=== PATIENT | female | born 1965 | race Caucasian/White ===

== ENCOUNTER 2021-10-01 11:09 | Emergency (ER) | payer MEDICARE, MEDICAID ==
[~2021-10-01] VITALS: Ht 167.6 cm; Wt 90.7 kg
[~2021-10-01 11:09] MED LIST: DIAZ2TAB PO; FLUO20CA19 PO; MORP30TA PO; QUE100T PO; ZOLP10TA PO
[2021-10-01 12:47] LABS: Basophils # (auto) 0 10 ^3/uL (0-0.2); Basophils % (auto) 0.2 % (0.0-2.0); Eosinophils # (auto) 0.1 10 ^3/uL (0-0.8); Eosinophils % (auto) 0.8 % (0.0-7.0); Hematocrit 45.5 % (36.0-46.0); Hemoglobin 14.9 g/dL (12.2-16.2); Lymphocytes # (auto) 1.5 10 ^3/uL (0.4-5.4); Lymphocytes % (auto) 13.5 % (10.0-50.0); Mean Corpuscular Hemoglobin 30.2 pg (28.0-32.0); Mean Corpuscular Hgb Conc. 32.8 g/dL (32.0-36.0); Mean Corpuscular Volume 92.1 fL (80.0-100.0); Monocytes # (auto) 0.5 10 ^3/uL (0-1.3); Monocytes % (auto) 4.6 % (0.0-12.0); Neutrophils # (auto) 8.8 10 ^3/uL (1.6-8.6); Neutrophils % (auto) 80.9 % (37.0-80.0); Nucleated Red Blood Cells % 0.2 %; Red Blood Cells 4.94 10^6/uL (4.0-5.20); Red Cell Distribution Width 13.9 % (11.8-14.3); White Blood Cell 10.8 10^3/uL (4.4-10.8)
[2021-10-01 13:16] LABS: Potassium 4.5 mmol/L (3.5-5.1)
[2021-10-01 13:26] LABS: Albumin 3.5 g/dL (3.4-5.0); BUN/Creatinine Ratio 12.1; Bilirubin, Total 0.5 mg/dL (0.2-1.0); Calcium 8.8 mg/dL (8.5-10.1); Magnesium 2.5 mg/dL (1.6-2.6); Total Protein 7.3 g/dL (6.4-8.2)
[2021-10-01 19:06] VITALS: BP 140/90
== END 2021-10-01 21:51 | disposition left against medical advice (07) ==
LOC: ER 11:09 → EDBD 11:09 → ER 21:51
DX: R41.82 Altered mental status, unspecified (principal); R55 Syncope and collapse; Z86.73 Personal history of transient ischemic attack (TIA), and cerebral infarction without residual deficits; Z88.1 Allergy status to other antibiotic agents; Z88.0 Allergy status to penicillin; Z53.29 Procedure and treatment not carried out because of patient's decision for other reasons
CPT/HCPCS: 36415; 70450; 71045; 72125; 80053; 83735; 84484; 85025; 93005

== ENCOUNTER 2022-02-25 10:59 | Inpatient (IN) | payer MEDICARE, MEDICAID ==
[2022-02-25] VITALS (20 sets, daily range): BP systolic 77–119; BP diastolic 54–100
[~2022-02-25] VITALS: Ht 167.6 cm; Wt 103.8 kg
[2022-02-25 11:44] LABS: Basophils # (auto) 0 10 ^3/uL (0-0.2); Basophils % (auto) 0.1 % (0.0-2.0); Eosinophils # (auto) 0 10 ^3/uL (0-0.8); Eosinophils % (auto) 0.1 % (0.0-7.0); Hematocrit 50.6 % (36.0-46.0); Hemoglobin 16.5 g/dL (12.2-16.2); Lymphocytes # (auto) 0.7 10 ^3/uL (0.4-5.4); Mean Corpuscular Hemoglobin 29.8 pg (28.0-32.0); Mean Corpuscular Hgb Conc. 32.7 g/dL (32.0-36.0); Mean Corpuscular Volume 91.2 fL (80.0-100.0); Monocytes # (auto) 2.1 10 ^3/uL (0-1.3); Monocytes % (auto) 8.5 % (0.0-12.0); Neutrophils # (auto) 21.6 10 ^3/uL (1.6-8.6); Neutrophils % (auto) 88.3 % (37.0-80.0); Nucleated Red Blood Cells % 0.1 %; Red Blood Cells 5.55 10^6/uL (4.0-5.20); Red Cell Distribution Width 14.4 % (11.8-14.3); White Blood Cell 24.4 10^3/uL (4.4-10.8)
[2022-02-25 12:07] LABS: Lactic Acid w/Reflex 5.7 mmol/L (0.4-2.0)
[2022-02-25] MEDS ORDERED: MORPHINE SULFATE 4 MG/ML SYR/VIAL IV ONE (12:45)
[2022-02-25] MEDS ORDERED: LACTATED RINGER'S 1,000 ML IV ONE (12:45)
[2022-02-25] MEDS ORDERED: metroNIDAZOLE 500MG/100ML 100 ML IV ONE (13:30)
[2022-02-25] MEDS ORDERED: CEFEPIME 1 GM in SODIUM CHL 0.9% 50 ML IV ONE (13:30)
[2022-02-25] MEDS: LACTATED RINGER'S 1,000 ML IV ONE ×2 (14:07→14:58)
[2022-02-25 14:27] LABS: Albumin 2.7 g/dL (3.4-5.0); Bilirubin, Total 0.7 mg/dL (0.2-1.0); Calcium 9.2 mg/dL (8.5-10.1); Magnesium 2.3 mg/dL (1.6-2.6); Potassium 4.3 mmol/L (3.5-5.1); Total Protein 6.8 g/dL (6.4-8.2)
[2022-02-25] MEDS ORDERED: SUCCINYLCHOLINE CHLORIDE 20 MG/ML 10ML VIAL IV ONE ×2 (16:32→17:49)
[2022-02-25 17:03] LABS: Urine Amorphous Crystal FEW /hpf (None Seen); Urine Bacteria NONE SEEN /hpf (None Seen); Urine Blood 2+ /uL (Negative); Urine Mucus FEW (None Seen); Urine Specific Gravity 1.027 (1.001-1.035); Urine WBC 19 /hpf (0 - 5); Urine WBC Clumps PRESENT /hpf (None Seen)
[2022-02-25] MEDS ORDERED: SODIUM BICARBONATE 8.4 % INJ 50ML VIAL IV ONE (17:30)
[2022-02-25] MEDS ORDERED: ROCURONIUM 10MG/ML 10ML VIAL IV ONE (17:39)
[2022-02-25] MEDS ORDERED: MIDAZOLAM HCL 2MG/2ML 2ml VIAL (1mg/ml) ONE (17:39)
[2022-02-25] MEDS ORDERED: fentaNYL CITRATE 100 MCG/2 ML VL ONE (17:39)
[2022-02-25] MEDS ORDERED: MORPHINE SULFATE INJECTION 2 MG/ML SYRG IV PRN (18:15)
[2022-02-25] MEDS ORDERED: NOREPINEPHRINE 8 MG/250ML KIT 250 ML IV SCH (18:15)
[2022-02-25] MEDS ORDERED: NITROGLYCERIN 0.4 MG SL TAB SL PRN (18:15)
[2022-02-25 18:39] LABS: Partial Thromboplastin Time < 20.0 sec (23.6-33.0)
[2022-02-25] MEDS ORDERED: POVIDONE IODINE 10 % TOPICAL OINT 30GM TOP ONE (18:59)
[2022-02-25] MEDS ORDERED: D5W/SOD CHL 0.45%/KCL 20MEQ 1,000 ML IV SCH (19:30)
[2022-02-25] MEDS ORDERED: fentaNYL CITRATE 100 MCG/2 ML VL IV ONE (19:30)
[2022-02-25] MEDS: MIDAZOLAM DRIP 50 mg/50mL 50 ML IV SCH (19:45)
[2022-02-25] MEDS: D5W/LACTATED RINGERS 1,000 ML IV SCH (20:00)
[2022-02-25] MEDS: NOREPINEPHRINE 8 MG/250ML KIT 250 ML IV SCH (21:00)
[2022-02-25] MEDS: CEFEPIME 2 GM in SODIUM CHL 0.9% 50 ML IV SCH (22:29)
[2022-02-25 23:44] LABS: Basophils # (auto) 0 10 ^3/uL (0-0.2); Basophils % (auto) 0.2 % (0.0-2.0); Eosinophils # (auto) 0 10 ^3/uL (0-0.8); Eosinophils % (auto) 0.1 % (0.0-7.0); Hematocrit 42.5 % (36.0-46.0); Hemoglobin 14.5 g/dL (12.2-16.2); Lymphocytes % (auto) 7.3 % (10.0-50.0); Mean Corpuscular Hemoglobin 30.5 pg (28.0-32.0); Mean Corpuscular Hgb Conc. 34.2 g/dL (32.0-36.0); Monocytes # (auto) 0.9 10 ^3/uL (0-1.3); Monocytes % (auto) 6.4 % (0.0-12.0); Neutrophils # (auto) 11.6 10 ^3/uL (1.6-8.6); Red Blood Cells 4.78 10^6/uL (4.0-5.20); Red Cell Distribution Width 14.2 % (11.8-14.3); White Blood Cell 13.4 10^3/uL (4.4-10.8)
[2022-02-25] MEDS: metroNIDAZOLE 500MG/100ML 100 ML IV SCH (23:47)
[2022-02-26] VITALS (91 sets, daily range): BP systolic 75–131; BP diastolic 47–75
[2022-02-26] LABS: BUN/Creatinine Ratio 17.5; Calcium 8.2 mg/dL (8.5-10.1); Potassium 4.9 mmol/L (3.5-5.1)
[2022-02-26] MEDS: NOREPINEPHRINE 8 MG/250ML KIT 250 ML IV SCH ×3 (00:41→15:40)
[2022-02-26 02:39] LABS: Lactic Acid w/Reflex 4.2 mmol/L (0.4-2.0)
[2022-02-26] MEDS ORDERED: ACETAMINOPHEN 650 MG RECT SUPP PR ONE (03:15)
[2022-02-26] MEDS: D5W/LACTATED RINGERS 1,000 ML IV SCH (05:19)
[2022-02-26] MEDS: MIDAZOLAM DRIP 50 mg/50mL 50 ML IV SCH ×2 (05:56→21:26)
[2022-02-26] MEDS: metroNIDAZOLE 500MG/100ML 100 ML IV SCH ×3 (05:58→21:51)
[2022-02-26] MEDS ORDERED: MIDAZOLAM HCL 2MG/2ML 2ml VIAL (1mg/ml) ONE (07:37)
[2022-02-26] MEDS ORDERED: HYDROmorphone HCL 2 MG/ML VL ONE (07:37)
[2022-02-26] MEDS ORDERED: fentaNYL CITRATE 100 MCG/2 ML VL ONE (07:37)
[2022-02-26] MEDS ORDERED: ROCURONIUM 10MG/ML 10ML VIAL IV ONE ×2 (07:37→09:01)
[2022-02-26] MEDS ORDERED: EPINEPHrine HCL 1 MG/1 ML AMP ONE (08:03)
[2022-02-26] MEDS ORDERED: BUPIVACAINE 0.25% INJ 50ML VIAL ONE (08:04)
[2022-02-26] MEDS ORDERED: CALCIUM CHLOR(10%) 100MG/ML 10ML SYRINGE IV ONE (08:24)
[2022-02-26] MEDS ORDERED: SODIUM CHLORIDE LOCK 10 ML ONE (08:55)
[2022-02-26] MEDS ORDERED: PHENYLEPHRINE HCL 10 MG/ML VL ONE (08:55)
[2022-02-26] MEDS ORDERED: SODIUM BICARBONATE INFANT SYR 10 ML SYRG IV ONE (08:59)
[2022-02-26] MEDS: CEFEPIME 2 GM in SODIUM CHL 0.9% 50 ML IV SCH (10:00)
[2022-02-26] MEDS ORDERED: PHENYLEPHRINE IV 250 ML IV ONE (10:04)
[2022-02-26] MEDS: PHENYLEPHRINE IV 250 ML IV SCH ×2 (10:15→18:08)
[2022-02-26] MEDS ORDERED: ALBUMIN 5% 250 ML IV ONE (10:45)
[2022-02-26] MEDS: VASOPRESSIN 50 UNITS in D5W 5% 247.5 ML IV SCH (10:45)
[2022-02-26] MEDS ORDERED: SODIUM BICARBONATE 8.4 % INJ 50ML VIAL IV ONE ×2 (10:46→11:00)
[2022-02-26] MEDS ORDERED: TPN PER PHARMACY 0 ML IV SCH (11:00)
[2022-02-26] MEDS: fentaNYL Drip 2500mCg/250mlNS 250 ML IV SCH ×2 (11:00→20:41)
[2022-02-26] MEDS ORDERED: PANTOPRAZOLE 40 MG/10 ML VIAL INJ IV ONE (11:15)
[2022-02-26 11:24] LABS: Albumin 1.4 g/dL (3.4-5.0); BUN/Creatinine Ratio 22.5; Calcium 7.2 mg/dL (8.5-10.1); Hematocrit 38.5 % (36.0-46.0); Hemoglobin 12.9 g/dL (12.2-16.2); Mean Corpuscular Hgb Conc. 33.5 g/dL (32.0-36.0); Mean Corpuscular Volume 89.7 fL (80.0-100.0); Red Cell Distribution Width 14.3 % (11.8-14.3); White Blood Cell 16.6 10^3/uL (4.4-10.8)
[2022-02-26 11:25] LABS: Basophils % (manual) 0 (0.0-2.0); Blast Cells 0; Eosinophils % (manual) 0 (0-7); Myelocytes % 0; Promyelocytes % 0; Reactive Lymphocytes 0
[2022-02-26 11:26] LABS: Bilirubin, Total 0.4 mg/dL (0.2-1.0); Total Protein 4.2 g/dL (6.4-8.2)
[2022-02-26] MEDS ORDERED: DEXTROSE (50%) 50ML SYRG IV SCH (11:30)
[2022-02-26 11:40] LABS: Magnesium 1.6 mg/dL (1.6-2.6); Phosphorus 4.4 mg/dL (2.5-4.90)
[2022-02-26] MEDS: ACCU-CHEK COMFORT CURVE STRIP VI SCH ×3 (11:51→23:32)
[2022-02-26] MEDS: InsuLIN REG 1unit/0.01ml Soln (100units/ml) SC SCH ×3 (11:56→23:35)
[2022-02-26 12:58] LABS: Band Neutrophils % (manual) 75; Lymphocytes % (manual) 7 (10.0-50.0); Metamyelocytes % 3; Monocytes % (manual) 7 (0-12)
[2022-02-26] MEDS ORDERED: LACTATED RINGER'S 1,000 ML IV SCH (15:30)
[2022-02-26] MEDS ORDERED: VANCOMYCIN PER PHARMACY 0 MG IV SCH (16:30)
[2022-02-26] MEDS: LACTATED RINGER'S 1,000 ML IV SCH ×2 (16:45→20:15)
[2022-02-26] MEDS: VANCOMYCIN 1GM/250ML 250 ML IV SCH (17:12)
[2022-02-26] MEDS ORDERED: TPN PER PHARMACY IV NR ×4 (20:00)
[2022-02-26] MEDS ORDERED: LINEZOLID 600MG/300ML 300 ML IV SCH (22:00)
[2022-02-27] VITALS (99 sets, daily range): BP systolic 84–125; BP diastolic 6–107
[2022-02-27] MEDS: PHENYLEPHRINE IV 250 ML IV SCH ×2 (01:51→09:59)
[2022-02-27 03:37] LABS: Basophils # (auto) 0 10 ^3/uL (0-0.2); Basophils % (auto) 0.4 % (0.0-2.0); Eosinophils # (auto) 0 10 ^3/uL (0-0.8); Eosinophils % (auto) 0.1 % (0.0-7.0); Hemoglobin 10.6 g/dL (12.2-16.2); Lymphocytes # (auto) 0.3 10 ^3/uL (0.4-5.4); Lymphocytes % (auto) 3.8 % (10.0-50.0); Mean Corpuscular Hemoglobin 30.4 pg (28.0-32.0); Mean Corpuscular Hgb Conc. 34.1 g/dL (32.0-36.0); Monocytes # (auto) 0.4 10 ^3/uL (0-1.3); Neutrophils # (auto) 7.8 10 ^3/uL (1.6-8.6); Neutrophils % (auto) 90.7 % (37.0-80.0); Red Blood Cells 3.49 10^6/uL (4.0-5.20); Red Cell Distribution Width 14.5 % (11.8-14.3); White Blood Cell 8.6 10^3/uL (4.4-10.8)
[2022-02-27 03:45] LABS: Albumin 1.5 g/dL (3.4-5.0); BUN/Creatinine Ratio 23.2; Calcium 7.9 mg/dL (8.5-10.1); Magnesium 2.1 mg/dL (1.6-2.6); Potassium 4.3 mmol/L (3.5-5.1)
[2022-02-27 03:48] LABS: Bilirubin, Total 0.2 mg/dL (0.2-1.0); Phosphorus 1.8 mg/dL (2.5-4.90); Total Protein 4.6 g/dL (6.4-8.2)
[2022-02-27] MEDS: LACTATED RINGER'S 1,000 ML IV SCH (03:57)
[2022-02-27] MEDS: MIDAZOLAM DRIP 50 mg/50mL 50 ML IV SCH ×4 (03:58→21:56)
[2022-02-27] MEDS: VANCOMYCIN 1GM/250ML 250 ML IV SCH ×2 (05:09→17:16)
[2022-02-27] MEDS: ACCU-CHEK COMFORT CURVE STRIP VI SCH ×3 (05:55→17:01)
[2022-02-27] MEDS: InsuLIN REG 1unit/0.01ml Soln (100units/ml) SC SCH ×3 (05:56→17:01)
[2022-02-27] MEDS: metroNIDAZOLE 500MG/100ML 100 ML IV SCH ×3 (06:08→21:56)
[2022-02-27] MEDS ORDERED: SOD CHL 0.45% 1,000 ML IV SCH (09:00)
[2022-02-27] MEDS: PANTOPRAZOLE 40 MG/10 ML VIAL INJ IV SCH (09:04)
[2022-02-27] MEDS ORDERED: CEFEPIME 2 GM in SODIUM CHL 0.9% 50 ML IV SCH (10:00)
[2022-02-27] MEDS: VASOPRESSIN 50 UNITS in D5W 5% 247.5 ML IV SCH (10:45)
[2022-02-27] MEDS: SOD CHL 0.45% 1,000 ML IV SCH (11:50)
[2022-02-27] MEDS: PHENYLEPHRINE INJ 80 MG in SODIUM CHL 0.9% 242 ML IV SCH ×2 (12:35→19:17)
[2022-02-27] MEDS: NOREPINEPHRINE 8 MG/250ML KIT 250 ML IV SCH (12:35)
[2022-02-27] MEDS ORDERED: SODIUM PHOSPHATES 24 MEQ in SODIUM CHL 0.9% 100 ML IV ONE (13:00)
[2022-02-27 15:03] LABS: Urine Bacteria NONE SEEN /hpf (None Seen); Urine Blood 2+ /uL (Negative); Urine Specific Gravity 1.016 (1.001-1.035); Urine WBC 1 /hpf (0 - 5)
[2022-02-27 16:06] LABS: Protein, Urine 135.5 mg/dL (0.0-11.9)
[2022-02-27] MEDS: fentaNYL Drip 2500mCg/250mlNS 250 ML IV SCH (19:17)
[2022-02-27] MEDS ORDERED: TPN PER PHARMACY IV NR ×8 (20:00)
[2022-02-28] VITALS (104 sets, daily range): BP systolic 90–117; BP diastolic 41–68
[2022-02-28] MEDS: SOD CHL 0.45% 1,000 ML IV SCH ×3 (00:20→19:10)
[2022-02-28] MEDS ORDERED: PHENYLEPHRINE IV 250 ML IV ONE (01:58)
[2022-02-28] MEDS ORDERED: PHENYLEPHRINE HCL 10 MG/ML VL ONE (01:59)
[2022-02-28] MEDS: PHENYLEPHRINE INJ 80 MG in SODIUM CHL 0.9% 242 ML IV SCH ×3 (02:46→23:50)
[2022-02-28] MEDS: MIDAZOLAM DRIP 50 mg/50mL 50 ML IV SCH ×6 (04:01→22:12)
[2022-02-28 04:13] LABS: Basophils # (auto) 0 10 ^3/uL (0-0.2); Basophils % (auto) 0.1 % (0.0-2.0); Eosinophils # (auto) 0 10 ^3/uL (0-0.8); Hematocrit 28.2 % (36.0-46.0); Hemoglobin 9.3 g/dL (12.2-16.2); Lymphocytes # (auto) 0.7 10 ^3/uL (0.4-5.4); Lymphocytes % (auto) 4.4 % (10.0-50.0); Mean Corpuscular Hemoglobin 29.8 pg (28.0-32.0); Mean Corpuscular Hgb Conc. 33.1 g/dL (32.0-36.0); Mean Corpuscular Volume 90.1 fL (80.0-100.0); Monocytes # (auto) 0.8 10 ^3/uL (0-1.3); Neutrophils # (auto) 14.8 10 ^3/uL (1.6-8.6); Neutrophils % (auto) 90.5 % (37.0-80.0); Nucleated Red Blood Cells % 0.1 %; Red Blood Cells 3.13 10^6/uL (4.0-5.20); Red Cell Distribution Width 14.8 % (11.8-14.3); White Blood Cell 16.3 10^3/uL (4.4-10.8)
[2022-02-28 04:28] LABS: Albumin 1.5 g/dL (3.4-5.0); BUN/Creatinine Ratio 26.1; Calcium 7.8 mg/dL (8.5-10.1); Magnesium 2.5 mg/dL (1.6-2.6)
[2022-02-28 04:30] LABS: Bilirubin, Total 0.2 mg/dL (0.2-1.0); Phosphorus 1.5 mg/dL (2.5-4.90)
[2022-02-28] MEDS: VANCOMYCIN 1GM/250ML 250 ML IV SCH ×2 (05:05→14:19)
[2022-02-28] MEDS: ACCU-CHEK COMFORT CURVE STRIP VI SCH ×5 (05:42→23:52)
[2022-02-28] MEDS: InsuLIN REG 1unit/0.01ml Soln (100units/ml) SC SCH ×5 (05:44→23:52)
[2022-02-28] MEDS: metroNIDAZOLE 500MG/100ML 100 ML IV SCH ×3 (06:00→22:12)
[2022-02-28] MEDS: PANTOPRAZOLE 40 MG/10 ML VIAL INJ IV SCH (09:04)
[2022-02-28] MEDS ORDERED: CEFEPIME 2 GM in SODIUM CHL 0.9% 50 ML IV SCH (10:00)
[2022-02-28] MEDS ORDERED: SODIUM PHOSP 40 MEQ in D5W 5% 250 ML IV ONE (10:15)
[2022-02-28] MEDS: VASOPRESSIN 50 UNITS in D5W 5% 247.5 ML IV SCH (10:45)
[2022-02-28] MEDS: fentaNYL Drip 2500mCg/250mlNS 250 ML IV SCH (12:13)
[2022-02-28] MEDS: IPRATROPIUM BROM 0.5 MG/2.5ML INH SOL NEB SCH ×3 (14:03→22:10)
[2022-02-28] MEDS: ALBUTEROL SULF 2.5 MG/0.5ML(0.5%) NEB SOLN NEB SCH ×3 (14:03→22:10)
[2022-02-28] MEDS: CEFEPIME 2 GM in SODIUM CHL 0.9% 50 ML IV SCH (16:07)
[2022-02-28] MEDS ORDERED: TPN PER PHARMACY IV NR ×8 (20:00)
[2022-02-28] MEDS: BUDESONIDE (INHALATION) 0.5 MG/2 ML NEB NEB SCH (22:10)
[2022-03-01] VITALS (107 sets, daily range): BP systolic 85–136; BP diastolic 47–98
[2022-03-01] MEDS: VANCOMYCIN 1GM/250ML 250 ML IV SCH ×3 (01:32→21:00)
[2022-03-01] MEDS: CEFEPIME 2 GM in SODIUM CHL 0.9% 50 ML IV SCH ×3 (01:33→17:40)
[2022-03-01] MEDS: MIDAZOLAM DRIP 50 mg/50mL 50 ML IV SCH ×5 (01:33→19:46)
[2022-03-01] MEDS: ALBUTEROL SULF 2.5 MG/0.5ML(0.5%) NEB SOLN NEB SCH ×6 (02:17→21:51)
[2022-03-01] MEDS: IPRATROPIUM BROM 0.5 MG/2.5ML INH SOL NEB SCH ×6 (02:17→21:52)
[2022-03-01 03:48] LABS: Mean Corpuscular Hgb Conc. 33.3 g/dL (32.0-36.0); Mean Corpuscular Volume 90.1 fL (80.0-100.0); Red Cell Distribution Width 14.9 % (11.8-14.3)
[2022-03-01 03:57] LABS: Band Neutrophils % (manual) 0; Basophils % (manual) 0 (0.0-2.0); Blast Cells 0; Metamyelocytes % 0; Myelocytes % 0; Promyelocytes % 0; Reactive Lymphocytes 0
[2022-03-01 04:07] LABS: Potassium 3.6 mmol/L (3.5-5.1)
[2022-03-01 04:12] LABS: Albumin 1.5 g/dL (3.4-5.0); Calcium 7.7 mg/dL (8.5-10.1); Magnesium 2.4 mg/dL (1.6-2.6)
[2022-03-01 04:21] LABS: Bilirubin, Total 0.2 mg/dL (0.2-1.0); Phosphorus 1.6 mg/dL (2.5-4.90)
[2022-03-01 04:31] LABS: Eosinophils % (manual) 1 (0-7); Lymphocytes % (manual) 12 (10.0-50.0); Monocytes % (manual) 8 (0-12)
[2022-03-01] MEDS: metroNIDAZOLE 500MG/100ML 100 ML IV SCH ×3 (05:43→21:35)
[2022-03-01] MEDS: ACCU-CHEK COMFORT CURVE STRIP VI SCH ×4 (05:43→23:55)
[2022-03-01] MEDS: fentaNYL Drip 2500mCg/250mlNS 250 ML IV SCH ×2 (05:43→21:35)
[2022-03-01] MEDS: InsuLIN REG 1unit/0.01ml Soln (100units/ml) SC SCH ×4 (05:46→23:56)
[2022-03-01] MEDS: BUDESONIDE (INHALATION) 0.5 MG/2 ML NEB NEB SCH ×2 (06:13→18:35)
[2022-03-01] MEDS: NOREPINEPHRINE 8 MG/250ML KIT 250 ML IV SCH ×2 (09:45→21:00)
[2022-03-01] MEDS: PANTOPRAZOLE 40 MG/10 ML VIAL INJ IV SCH (09:45)
[2022-03-01] MEDS ORDERED: POTASSIUM PHOSPHATE 44 MEQ in D5W 5% 250 ML IV ONE (10:15)
[2022-03-01] MEDS ORDERED: FUROSEMIDE 40 MG/4 ML VIAL IV ONE (10:15)
[2022-03-01] MEDS ORDERED: ALBUMIN 5% 250 ML IV ONE (10:15)
[2022-03-01] MEDS: VASOPRESSIN 50 UNITS in D5W 5% 247.5 ML IV SCH (10:45)
[2022-03-01] MEDS: ACETYLCYSTEINE 10 %(100MG/ML) SOL 4ML NEB SCH ×3 (14:01→21:51)
[2022-03-01] MEDS: SOD CHL 0.45% 1,000 ML IV SCH ×2 (15:40→19:47)
[2022-03-01] MEDS: PHENYLEPHRINE INJ 80 MG in SODIUM CHL 0.9% 242 ML IV SCH (18:50)
[2022-03-01] MEDS: TPN*HIGH CONC* PER PHARMACY IV NR ×9 (19:46)
[2022-03-01] MEDS: INSULIN LANTUS (GLARGINE) 1 /0.01ml (100units/ml) SC SCH (21:38)
[2022-03-02] VITALS (105 sets, daily range): BP systolic 85–134; BP diastolic 50–81
[2022-03-02] MEDS: CEFEPIME 2 GM in SODIUM CHL 0.9% 50 ML IV SCH ×3 (00:44→17:47)
[2022-03-02] MEDS: MIDAZOLAM DRIP 50 mg/50mL 50 ML IV SCH ×4 (00:44→19:39)
[2022-03-02] MEDS: IPRATROPIUM BROM 0.5 MG/2.5ML INH SOL NEB SCH ×6 (02:03→21:38)
[2022-03-02] MEDS: ACETYLCYSTEINE 10 %(100MG/ML) SOL 4ML NEB SCH ×6 (02:03→21:38)
[2022-03-02] MEDS: ALBUTEROL SULF 2.5 MG/0.5ML(0.5%) NEB SOLN NEB SCH ×6 (02:03→21:38)
[2022-03-02] MEDS ORDERED: ACETAMINOPHEN 325 MG TAB PO PRN (02:30)
[2022-03-02 03:58] LABS: Hematocrit 29.8 % (36.0-46.0); Hemoglobin 9.7 g/dL (12.2-16.2); Mean Corpuscular Hemoglobin 29.4 pg (28.0-32.0); Mean Corpuscular Hgb Conc. 32.7 g/dL (32.0-36.0); Mean Corpuscular Volume 89.9 fL (80.0-100.0); Red Blood Cells 3.31 10^6/uL (4.0-5.20); Red Cell Distribution Width 14.6 % (11.8-14.3); White Blood Cell 15.9 10^3/uL (4.4-10.8)
[2022-03-02 04:14] LABS: Albumin 1.6 g/dL (3.4-5.0); BUN/Creatinine Ratio 34.6; Calcium 7.6 mg/dL (8.5-10.1); Magnesium 1.9 mg/dL (1.6-2.6); Potassium 3.5 mmol/L (3.5-5.1)
[2022-03-02 04:16] LABS: Bilirubin, Total 0.3 mg/dL (0.2-1.0); Total Protein 5.3 g/dL (6.4-8.2)
[2022-03-02 04:24] LABS: Basophils % (manual) 0 (0.0-2.0); Blast Cells 0; Metamyelocytes % 0; Promyelocytes % 0; Reactive Lymphocytes 0
[2022-03-02 05:19] LABS: Band Neutrophils % (manual) 11; Eosinophils % (manual) 3 (0-7); Lymphocytes % (manual) 10 (10.0-50.0); Monocytes % (manual) 14 (0-12); Myelocytes % 4
[2022-03-02] MEDS: metroNIDAZOLE 500MG/100ML 100 ML IV SCH ×3 (05:58→22:43)
[2022-03-02] MEDS: ACCU-CHEK COMFORT CURVE STRIP VI SCH ×4 (05:59→23:05)
[2022-03-02] MEDS: InsuLIN REG 1unit/0.01ml Soln (100units/ml) SC SCH ×4 (06:16→23:05)
[2022-03-02] MEDS: BUDESONIDE (INHALATION) 0.5 MG/2 ML NEB NEB SCH ×2 (06:56→17:44)
[2022-03-02] MEDS: VANCOMYCIN 1GM/250ML 250 ML IV SCH ×2 (08:32→23:46)
[2022-03-02] MEDS: PANTOPRAZOLE 40 MG/10 ML VIAL INJ IV SCH (09:52)
[2022-03-02] MEDS: INSULIN LANTUS (GLARGINE) 1 /0.01ml (100units/ml) SC SCH ×2 (09:53→23:05)
[2022-03-02] MEDS: NOREPINEPHRINE 8 MG/250ML KIT 250 ML IV SCH (11:31)
[2022-03-02] MEDS: VASOPRESSIN 50 UNITS in D5W 5% 247.5 ML IV SCH (11:32)
[2022-03-02] MEDS: SOD CHL 0.45% 1,000 ML IV SCH (12:40)
[2022-03-02] MEDS ORDERED: MICAFUNGIN SODIUM 100 MG in SODIUM CHL 0.9% 100 ML IV ONE (14:00)
[2022-03-02] MEDS ORDERED: POTASSIUM PHOSPHATE 22 MEQ in SODIUM CHL 0.9% 100 ML IV ONE (14:00)
[2022-03-02] MEDS ORDERED: POTASSIUM PHOSPHATE 44 MEQ in D5W 5% 250 ML IV ONE (14:00)
[2022-03-02] MEDS: fentaNYL Drip 2500mCg/250mlNS 250 ML IV SCH (14:40)
[2022-03-02] MEDS: TPN*HIGH CONC* PER PHARMACY IV NR ×9 (19:54)
[2022-03-02] MEDS ORDERED: TPN*HIGH CONC* PER PHARMACY IV NR ×8 (20:00)
[2022-03-02] MEDS ORDERED: VANCOMYCIN 1GM/250ML 250 ML IV SCH (21:00)
[2022-03-03] VITALS (103 sets, daily range): BP systolic 89–135; BP diastolic 43–81
[2022-03-03] MEDS: ACETYLCYSTEINE 10 %(100MG/ML) SOL 4ML NEB SCH ×3 (01:50→10:06)
[2022-03-03] MEDS: IPRATROPIUM BROM 0.5 MG/2.5ML INH SOL NEB SCH ×4 (01:50→18:39)
[2022-03-03] MEDS: ALBUTEROL SULF 2.5 MG/0.5ML(0.5%) NEB SOLN NEB SCH ×4 (01:50→18:39)
[2022-03-03] MEDS: CEFEPIME 2 GM in SODIUM CHL 0.9% 50 ML IV SCH ×3 (02:17→17:14)
[2022-03-03 04:05] LABS: Basophils # (auto) 0 10 ^3/uL (0-0.2); Basophils % (auto) 0.1 % (0.0-2.0); Eosinophils # (auto) 0.3 10 ^3/uL (0-0.8); Eosinophils % (auto) 1.9 % (0.0-7.0); Hematocrit 29.6 % (36.0-46.0); Hemoglobin 9.7 g/dL (12.2-16.2); Lymphocytes # (auto) 1.1 10 ^3/uL (0.4-5.4); Lymphocytes % (auto) 7.9 % (10.0-50.0); Mean Corpuscular Hemoglobin 29.4 pg (28.0-32.0); Mean Corpuscular Hgb Conc. 32.7 g/dL (32.0-36.0); Mean Corpuscular Volume 89.9 fL (80.0-100.0); Monocytes # (auto) 1.3 10 ^3/uL (0-1.3); Monocytes % (auto) 9.1 % (0.0-12.0); Neutrophils # (auto) 11.1 10 ^3/uL (1.6-8.6); Nucleated Red Blood Cells % 0.1 %; Red Blood Cells 3.29 10^6/uL (4.0-5.20); Red Cell Distribution Width 14.6 % (11.8-14.3); White Blood Cell 13.7 10^3/uL (4.4-10.8)
[2022-03-03 04:18] LABS: Albumin 1.5 g/dL (3.4-5.0); Calcium 7.6 mg/dL (8.5-10.1); Magnesium 2.1 mg/dL (1.6-2.6); Potassium 3.7 mmol/L (3.5-5.1)
[2022-03-03 04:20] LABS: BUN/Creatinine Ratio 35.7
[2022-03-03 04:22] LABS: Bilirubin, Total 0.4 mg/dL (0.2-1.0); Phosphorus 1.9 mg/dL (2.5-4.90); Total Protein 5.2 g/dL (6.4-8.2)
[2022-03-03] MEDS: ACETAMINOPHEN 650 MG RECT SUPP PR PRN (04:30)
[2022-03-03] MEDS: ACCU-CHEK COMFORT CURVE STRIP VI SCH ×4 (05:59→23:03)
[2022-03-03] MEDS: InsuLIN REG 1unit/0.01ml Soln (100units/ml) SC SCH ×4 (06:01→23:05)
[2022-03-03] MEDS: metroNIDAZOLE 500MG/100ML 100 ML IV SCH ×3 (06:04→22:17)
[2022-03-03] MEDS: SOD CHL 0.45% 1,000 ML IV SCH (06:28)
[2022-03-03] MEDS: fentaNYL Drip 2500mCg/250mlNS 250 ML IV SCH (07:13)
[2022-03-03] MEDS: MICAFUNGIN SODIUM 100 MG in SODIUM CHL 0.9% 100 ML IV SCH (10:33)
[2022-03-03] MEDS: PANTOPRAZOLE 40 MG/10 ML VIAL INJ IV SCH (10:33)
[2022-03-03] MEDS: INSULIN LANTUS (GLARGINE) 1 /0.01ml (100units/ml) SC SCH ×2 (10:34→23:04)
[2022-03-03] MEDS ORDERED: FUROSEMIDE 40 MG/4 ML VIAL IV ONE (10:45)
[2022-03-03] MEDS: VASOPRESSIN 50 UNITS in D5W 5% 247.5 ML IV SCH (10:45)
[2022-03-03] MEDS ORDERED: SODIUM PHOSP 40 MEQ in D5W 5% 250 ML IV ONE (10:45)
[2022-03-03] MEDS: PHENYLEPHRINE INJ 80 MG in SODIUM CHL 0.9% 242 ML IV SCH (11:00)
[2022-03-03] MEDS ORDERED: ENOXAPARIN SOD 100 MG/1 ML SYRINGE SC ONE (11:15)
[2022-03-03] MEDS: ENOXAPARIN SOD 120 MG/0.8 ML SYRINGE SC SCH ×2 (11:50→22:22)
[2022-03-03] MEDS: VANCOMYCIN 1GM/250ML 250 ML IV SCH (13:29)
[2022-03-03] MEDS: BUDESONIDE (INHALATION) 0.5 MG/2 ML NEB NEB SCH (18:39)
[2022-03-03] MEDS ORDERED: TPN*HIGH CONC* PER PHARMACY IV NR ×8 (20:00)
[2022-03-03] MEDS: NOREPINEPHRINE 8 MG/250ML KIT 250 ML IV SCH (21:00)
[2022-03-04] VITALS (101 sets, daily range): BP systolic 90–153; BP diastolic 44–122
[2022-03-04] MEDS: ALBUTEROL SULF 2.5 MG/0.5ML(0.5%) NEB SOLN NEB SCH ×4 (00:30→18:15)
[2022-03-04] MEDS: CEFEPIME 2 GM in SODIUM CHL 0.9% 50 ML IV SCH ×2 (01:34→08:40)
[2022-03-04 04:13] LABS: Basophils # (auto) 0.1 10 ^3/uL (0-0.2); Basophils % (auto) 0.4 % (0.0-2.0); Eosinophils # (auto) 0.3 10 ^3/uL (0-0.8); Eosinophils % (auto) 1.6 % (0.0-7.0); Hematocrit 30.8 % (36.0-46.0); Hemoglobin 10.3 g/dL (12.2-16.2); Lymphocytes # (auto) 1.4 10 ^3/uL (0.4-5.4); Lymphocytes % (auto) 7.7 % (10.0-50.0); Mean Corpuscular Hgb Conc. 33.4 g/dL (32.0-36.0); Mean Corpuscular Volume 89.6 fL (80.0-100.0); Monocytes # (auto) 1.4 10 ^3/uL (0-1.3); Monocytes % (auto) 7.6 % (0.0-12.0); Neutrophils # (auto) 15.4 10 ^3/uL (1.6-8.6); Neutrophils % (auto) 82.7 % (37.0-80.0); Nucleated Red Blood Cells % 0.1 %; Red Blood Cells 3.44 10^6/uL (4.0-5.20); Red Cell Distribution Width 14.6 % (11.8-14.3); White Blood Cell 18.6 10^3/uL (4.4-10.8)
[2022-03-04 04:26] LABS: Albumin 1.5 g/dL (3.4-5.0); BUN/Creatinine Ratio 40.3; Calcium 7.9 mg/dL (8.5-10.1); Magnesium 2.3 mg/dL (1.6-2.6); Potassium 3.3 mmol/L (3.5-5.1)
[2022-03-04 04:29] LABS: Bilirubin, Total 0.3 mg/dL (0.2-1.0); Total Protein 5.8 g/dL (6.4-8.2)
[2022-03-04] MEDS: VANCOMYCIN 1GM/250ML 250 ML IV SCH ×2 (04:57→17:50)
[2022-03-04] MEDS: ACCU-CHEK COMFORT CURVE STRIP VI SCH ×4 (05:07→23:31)
[2022-03-04] MEDS: InsuLIN REG 1unit/0.01ml Soln (100units/ml) SC SCH ×4 (05:08→23:32)
[2022-03-04] MEDS: metroNIDAZOLE 500MG/100ML 100 ML IV SCH ×3 (06:21→21:42)
[2022-03-04] MEDS: BUDESONIDE (INHALATION) 0.5 MG/2 ML NEB NEB SCH ×2 (06:43→18:15)
[2022-03-04] MEDS: IPRATROPIUM BROM 0.5 MG/2.5ML INH SOL NEB SCH ×3 (06:44→18:15)
[2022-03-04] MEDS ORDERED: POTASSIUM CHL 20MEQ/100ML 100 ML IV ONE (07:00)
[2022-03-04] MEDS ORDERED: SODIUM PHOSPHATES 40 MEQ in D5W 5% 250 ML IV ONE (09:45)
[2022-03-04] MEDS ORDERED: FUROSEMIDE 20 MG/2 ML VIAL IV ONE (10:00)
[2022-03-04] MEDS: PANTOPRAZOLE 40 MG/10 ML VIAL INJ IV SCH (10:16)
[2022-03-04] MEDS: ENOXAPARIN SOD 120 MG/0.8 ML SYRINGE SC SCH ×2 (10:16→21:41)
[2022-03-04] MEDS: MICAFUNGIN SODIUM 100 MG in SODIUM CHL 0.9% 100 ML IV SCH (10:16)
[2022-03-04] MEDS: INSULIN LANTUS (GLARGINE) 1 /0.01ml (100units/ml) SC SCH ×2 (10:27→21:41)
[2022-03-04] MEDS: VASOPRESSIN 50 UNITS in D5W 5% 247.5 ML IV SCH (10:45)
[2022-03-04] MEDS: fentaNYL Drip 2500mCg/250mlNS 250 ML IV SCH ×2 (11:00→20:09)
[2022-03-04] MEDS ORDERED: CEFTRIAXONE SODIUM 2 GM in D5W 5% 50 ML IV ONE (11:00)
[2022-03-04] MEDS: PHENYLEPHRINE INJ 80 MG in SODIUM CHL 0.9% 242 ML IV SCH (11:00)
[2022-03-04] MEDS: POTASSIUM CHL 20MEQ/100ML 100 ML IV SCH ×2 (11:21→13:08)
[2022-03-04] MEDS: MIDAZOLAM DRIP 50 mg/50mL 50 ML IV SCH ×2 (19:14→22:15)
[2022-03-04] MEDS: NOREPINEPHRINE 8 MG/250ML KIT 250 ML IV SCH (19:35)
[2022-03-04] MEDS: TPN*HIGH CONC* PER PHARMACY IV NR ×8 (20:08)
[2022-03-05] VITALS (84 sets, daily range): BP systolic 86–126; BP diastolic 49–77
[2022-03-05 03:58] LABS: Basophils # (auto) 0 10 ^3/uL (0-0.2); Basophils % (auto) 0.2 % (0.0-2.0); Eosinophils # (auto) 0.3 10 ^3/uL (0-0.8); Eosinophils % (auto) 2.3 % (0.0-7.0); Hematocrit 26.7 % (36.0-46.0); Hemoglobin 9.1 g/dL (12.2-16.2); Lymphocytes # (auto) 1.4 10 ^3/uL (0.4-5.4); Lymphocytes % (auto) 10.2 % (10.0-50.0); Mean Corpuscular Hemoglobin 30.2 pg (28.0-32.0); Mean Corpuscular Hgb Conc. 34.2 g/dL (32.0-36.0); Mean Corpuscular Volume 88.3 fL (80.0-100.0); Monocytes % (auto) 7.2 % (0.0-12.0); Neutrophils # (auto) 11.1 10 ^3/uL (1.6-8.6); Neutrophils % (auto) 80.1 % (37.0-80.0); Red Blood Cells 3.02 10^6/uL (4.0-5.20); Red Cell Distribution Width 14.8 % (11.8-14.3); White Blood Cell 13.8 10^3/uL (4.4-10.8)
[2022-03-05 04:37] LABS: Albumin 1.4 g/dL (3.4-5.0); BUN/Creatinine Ratio 48.1; Calcium 7.9 mg/dL (8.5-10.1); Magnesium 2.3 mg/dL (1.6-2.6); Potassium 3.2 mmol/L (3.5-5.1)
[2022-03-05 04:40] LABS: Bilirubin, Total 0.2 mg/dL (0.2-1.0); Phosphorus 2.3 mg/dL (2.5-4.90); Total Protein 5.3 g/dL (6.4-8.2)
[2022-03-05] MEDS: MIDAZOLAM DRIP 50 mg/50mL 50 ML IV SCH ×2 (05:32→19:27)
[2022-03-05] MEDS: ACCU-CHEK COMFORT CURVE STRIP VI SCH ×4 (05:39→23:49)
[2022-03-05] MEDS: metroNIDAZOLE 500MG/100ML 100 ML IV SCH ×3 (05:42→21:31)
[2022-03-05] MEDS: InsuLIN REG 1unit/0.01ml Soln (100units/ml) SC SCH ×4 (06:04→23:49)
[2022-03-05] MEDS: VANCOMYCIN 1GM/250ML 250 ML IV SCH ×2 (06:40→20:32)
[2022-03-05] MEDS: ALBUTEROL SULF 2.5 MG/0.5ML(0.5%) NEB SOLN NEB SCH ×4 (06:50→18:03)
[2022-03-05] MEDS: BUDESONIDE (INHALATION) 0.5 MG/2 ML NEB NEB SCH ×2 (06:50→18:03)
[2022-03-05] MEDS: IPRATROPIUM BROM 0.5 MG/2.5ML INH SOL NEB SCH ×4 (06:50→18:03)
[2022-03-05] MEDS: CEFTRIAXONE SODIUM 2 GM in D5W 5% 50 ML IV SCH (09:00)
[2022-03-05] MEDS: ENOXAPARIN SOD 120 MG/0.8 ML SYRINGE SC SCH ×2 (09:00→21:31)
[2022-03-05] MEDS: INSULIN LANTUS (GLARGINE) 1 /0.01ml (100units/ml) SC SCH ×2 (09:03→21:39)
[2022-03-05] MEDS: PANTOPRAZOLE 40 MG/10 ML VIAL INJ IV SCH (09:04)
[2022-03-05] MEDS: POTASSIUM CHL 20MEQ/100ML 100 ML IV SCH ×2 (10:30→12:30)
[2022-03-05] MEDS ORDERED: FUROSEMIDE 20 MG/2 ML VIAL ONE (10:38)
[2022-03-05] MEDS ORDERED: SODIUM PHOSP 20MEQ(15MMOL) IN NS 100 ML IV ONE (11:30)
[2022-03-05] MEDS ORDERED: ALBUMIN 25% 100 ML IV ONE (14:00)
[2022-03-05] MEDS: fentaNYL Drip 2500mCg/250mlNS 250 ML IV SCH (18:01)
[2022-03-05] MEDS: PHENYLEPHRINE INJ 80 MG in SODIUM CHL 0.9% 242 ML IV SCH (19:03)
[2022-03-05] MEDS: VASOPRESSIN 50 UNITS in D5W 5% 247.5 ML IV SCH (19:03)
[2022-03-05] MEDS: TPN*HIGH CONC* PER PHARMACY IV NR ×8 (19:05)
[2022-03-05] MEDS ORDERED: TPN*HIGH CONC* PER PHARMACY IV NR ×8 (20:00)
[2022-03-05] MEDS: NOREPINEPHRINE 8 MG/250ML KIT 250 ML IV SCH (20:23)
[2022-03-06] VITALS (104 sets, daily range): BP systolic 89–140; BP diastolic 51–80
[2022-03-06] MEDS: IPRATROPIUM BROM 0.5 MG/2.5ML INH SOL NEB SCH ×5 (00:10→22:09)
[2022-03-06] MEDS: ALBUTEROL SULF 2.5 MG/0.5ML(0.5%) NEB SOLN NEB SCH ×6 (00:10→22:09)
[2022-03-06] MEDS: MIDAZOLAM DRIP 50 mg/50mL 50 ML IV SCH ×3 (01:03→20:00)
[2022-03-06] MEDS: ACETAMINOPHEN 650 MG RECT SUPP PR PRN (02:22)
[2022-03-06 03:47] LABS: Basophils # (auto) 0.1 10 ^3/uL (0-0.2); Basophils % (auto) 0.6 % (0.0-2.0); Eosinophils # (auto) 0.2 10 ^3/uL (0-0.8); Lymphocytes # (auto) 1.4 10 ^3/uL (0.4-5.4); Lymphocytes % (auto) 11.1 % (10.0-50.0); Mean Corpuscular Hemoglobin 29.6 pg (28.0-32.0); Mean Corpuscular Hgb Conc. 33.5 g/dL (32.0-36.0); Mean Corpuscular Volume 88.2 fL (80.0-100.0); Monocytes # (auto) 0.9 10 ^3/uL (0-1.3); Monocytes % (auto) 7.3 % (0.0-12.0); Neutrophils # (auto) 9.6 10 ^3/uL (1.6-8.6); Nucleated Red Blood Cells % 0.2 %; Red Blood Cells 3.06 10^6/uL (4.0-5.20); Red Cell Distribution Width 14.8 % (11.8-14.3); White Blood Cell 12.2 10^3/uL (4.4-10.8)
[2022-03-06 04:06] LABS: Albumin 1.8 g/dL (3.4-5.0); Calcium 7.9 mg/dL (8.5-10.1); Magnesium 2.2 mg/dL (1.6-2.6); Potassium 3.6 mmol/L (3.5-5.1)
[2022-03-06 04:08] LABS: Bilirubin, Total 0.2 mg/dL (0.2-1.0); Phosphorus 2.5 mg/dL (2.5-4.90); Total Protein 5.7 g/dL (6.4-8.2)
[2022-03-06] MEDS: fentaNYL Drip 2500mCg/250mlNS 250 ML IV SCH ×2 (05:23→17:01)
[2022-03-06] MEDS: metroNIDAZOLE 500MG/100ML 100 ML IV SCH ×3 (05:30→22:53)
[2022-03-06] MEDS: ACCU-CHEK COMFORT CURVE STRIP VI SCH ×3 (05:31→17:44)
[2022-03-06] MEDS: InsuLIN REG 1unit/0.01ml Soln (100units/ml) SC SCH ×3 (05:31→17:43)
[2022-03-06] MEDS: BUDESONIDE (INHALATION) 0.5 MG/2 ML NEB NEB SCH ×2 (06:20→22:09)
[2022-03-06] MEDS: CEFTRIAXONE SODIUM 2 GM in D5W 5% 50 ML IV SCH (09:05)
[2022-03-06] MEDS: PANTOPRAZOLE 40 MG/10 ML VIAL INJ IV SCH (09:05)
[2022-03-06] MEDS: ENOXAPARIN SOD 120 MG/0.8 ML SYRINGE SC SCH ×2 (09:06→22:53)
[2022-03-06] MEDS: INSULIN LANTUS (GLARGINE) 1 /0.01ml (100units/ml) SC SCH ×2 (09:07→22:54)
[2022-03-06] MEDS ORDERED: FUROSEMIDE 20 MG/2 ML VIAL IV ONE (11:00)
[2022-03-06] MEDS ORDERED: POTASSIUM PHOSP 22MEQ(15MMOLE) in NS 100 ML IV ONE (11:00)
[2022-03-06] MEDS: PHENYLEPHRINE INJ 80 MG in SODIUM CHL 0.9% 242 ML IV SCH (11:00)
[2022-03-06] MEDS: methylPREDNISolone SOD SUCC 40 MG/ML VL IV SCH ×2 (11:00→22:53)
[2022-03-06] MEDS: VANCOMYCIN 1GM/250ML 250 ML IV SCH (11:00)
[2022-03-06] MEDS ORDERED: methylPREDNISolone SOD SUCC 40 MG/ML VL ONE (11:01)
[2022-03-06] MEDS ORDERED: FUROSEMIDE 40 MG/4 ML VIAL ONE (11:05)
[2022-03-06] MEDS: SODIUM CHL 0.9% IV SCH ×2 (13:30→18:56)
[2022-03-06] MEDS: DEXMEDETOMIDINE IV SCH ×2 (13:30→18:56)
[2022-03-06] MEDS: TPN*HIGH CONC* PER PHARMACY IV NR ×8 (20:22)
[2022-03-06] MEDS ORDERED: DexmedeTOMIDine 4 ML IV ONE (23:37)
[2022-03-07] VITALS (91 sets, daily range): BP systolic 93–190; BP diastolic 45–147
[2022-03-07] MEDS: InsuLIN REG 1unit/0.01ml Soln (100units/ml) SC SCH ×5 (00:50→23:56)
[2022-03-07] MEDS: DEXMEDETOMIDINE IV SCH ×2 (00:51→05:19)
[2022-03-07] MEDS: VANCOMYCIN 1GM/250ML 250 ML IV SCH (00:51)
[2022-03-07] MEDS: SODIUM CHL 0.9% IV SCH ×2 (00:51→05:19)
[2022-03-07] MEDS: ALBUTEROL SULF 2.5 MG/0.5ML(0.5%) NEB SOLN NEB SCH ×6 (02:05→22:35)
[2022-03-07] MEDS: IPRATROPIUM BROM 0.5 MG/2.5ML INH SOL NEB SCH ×6 (02:06→22:35)
[2022-03-07 04:05] LABS: Basophils # (auto) 0 10 ^3/uL (0-0.2); Basophils % (auto) 0.1 % (0.0-2.0); Eosinophils # (auto) 0 10 ^3/uL (0-0.8); Hematocrit 26.2 % (36.0-46.0); Hemoglobin 8.7 g/dL (12.2-16.2); Lymphocytes # (auto) 0.6 10 ^3/uL (0.4-5.4); Lymphocytes % (auto) 4.2 % (10.0-50.0); Mean Corpuscular Hemoglobin 29.3 pg (28.0-32.0); Mean Corpuscular Hgb Conc. 33.2 g/dL (32.0-36.0); Mean Corpuscular Volume 88.3 fL (80.0-100.0); Monocytes # (auto) 0.4 10 ^3/uL (0-1.3); Monocytes % (auto) 3.1 % (0.0-12.0); Neutrophils # (auto) 12.6 10 ^3/uL (1.6-8.6); Neutrophils % (auto) 92.6 % (37.0-80.0); Nucleated Red Blood Cells % 0.1 %; Red Blood Cells 2.97 10^6/uL (4.0-5.20); Red Cell Distribution Width 14.5 % (11.8-14.3); White Blood Cell 13.6 10^3/uL (4.4-10.8)
[2022-03-07 04:12] LABS: Albumin 1.8 g/dL (3.4-5.0); Calcium 8.1 mg/dL (8.5-10.1); Magnesium 2.2 mg/dL (1.6-2.6); Potassium 4.2 mmol/L (3.5-5.1)
[2022-03-07 04:16] LABS: BUN/Creatinine Ratio 42.7; Bilirubin, Total 0.3 mg/dL (0.2-1.0); Phosphorus 3.4 mg/dL (2.5-4.90); Total Protein 6.3 g/dL (6.4-8.2)
[2022-03-07] MEDS ORDERED: DexmedeTOMIDine 4 ML IV ONE (05:03)
[2022-03-07] MEDS: metroNIDAZOLE 500MG/100ML 100 ML IV SCH ×3 (06:00→22:14)
[2022-03-07] MEDS: ACCU-CHEK COMFORT CURVE STRIP VI SCH ×5 (06:00→23:55)
[2022-03-07] MEDS: BUDESONIDE (INHALATION) 0.5 MG/2 ML NEB NEB SCH ×2 (08:23→22:35)
[2022-03-07] MEDS: PANTOPRAZOLE 40 MG/10 ML VIAL INJ IV SCH (09:14)
[2022-03-07] MEDS: FUROSEMIDE 40 MG/4 ML VIAL IV SCH (09:14)
[2022-03-07] MEDS: INSULIN LANTUS (GLARGINE) 1 /0.01ml (100units/ml) SC SCH ×2 (09:15→22:28)
[2022-03-07] MEDS: methylPREDNISolone SOD SUCC 40 MG/ML VL IV SCH ×2 (09:15→22:14)
[2022-03-07] MEDS: ENOXAPARIN SOD 120 MG/0.8 ML SYRINGE SC SCH (09:16)
[2022-03-07] MEDS: CEFTRIAXONE SODIUM 2 GM in D5W 5% 50 ML IV SCH (09:25)
[2022-03-07] MEDS: PHENYLEPHRINE INJ 80 MG in SODIUM CHL 0.9% 242 ML IV SCH (11:00)
[2022-03-07] MEDS ORDERED: MORPHINE SULFATE INJECTION 2 MG/ML SYRG ONE (12:39)
[2022-03-07] MEDS ORDERED: MORPHINE SULFATE INJECTION 2 MG/ML SYRG IV PRN (12:45)
[2022-03-07] MEDS ORDERED: MICAFUNGIN SODIUM 100 MG in SODIUM CHL 0.9% 100 ML IV ONE (13:45)
[2022-03-07] MEDS: TPN*HIGH CONC* PER PHARMACY IV NR ×16 (19:56→20:09)
[2022-03-07] MEDS: NOREPINEPHRINE 8 MG/250ML KIT 250 ML IV SCH (20:08)
[2022-03-07] MEDS: ONDANSETRON HCL 4 MG/2 ML VIAL IV PRN (20:40)
[2022-03-07] MEDS: MORPHINE SULFATE INJECTION 2 MG/ML SYRG IV PRN (21:04)
[2022-03-07] MEDS: ENOXAPARIN SOD 100 MG/1 ML SYRINGE SC SCH (22:14)
[2022-03-07] MEDS ORDERED: HYDROmorphone HCL 2 MG/ML VL IV ONE (23:30)
[2022-03-08] VITALS (74 sets, daily range): BP systolic 105–166; BP diastolic 66–102
[2022-03-08] MEDS: ALBUTEROL SULF 2.5 MG/0.5ML(0.5%) NEB SOLN NEB SCH ×5 (02:34→21:30)
[2022-03-08] MEDS: IPRATROPIUM BROM 0.5 MG/2.5ML INH SOL NEB SCH ×5 (02:34→21:30)
[2022-03-08] MEDS: MORPHINE SULFATE INJECTION 2 MG/ML SYRG IV PRN ×2 (02:53→06:54)
[2022-03-08] MEDS: ONDANSETRON HCL 4 MG/2 ML VIAL IV PRN (05:06)
[2022-03-08] MEDS: DEXMEDETOMIDINE IV SCH ×2 (05:08→22:27)
[2022-03-08] MEDS: SODIUM CHL 0.9% IV SCH ×2 (05:08→22:27)
[2022-03-08 05:09] LABS: Basophils # (auto) 0.1 10 ^3/uL (0-0.2); Basophils % (auto) 0.3 % (0.0-2.0); Eosinophils # (auto) 0 10 ^3/uL (0-0.8); Hematocrit 30.4 % (36.0-46.0); Hemoglobin 10.1 g/dL (12.2-16.2); Lymphocytes # (auto) 0.9 10 ^3/uL (0.4-5.4); Lymphocytes % (auto) 4.8 % (10.0-50.0); Mean Corpuscular Hemoglobin 28.8 pg (28.0-32.0); Mean Corpuscular Hgb Conc. 33.2 g/dL (32.0-36.0); Mean Corpuscular Volume 86.8 fL (80.0-100.0); Monocytes # (auto) 0.7 10 ^3/uL (0-1.3); Monocytes % (auto) 3.7 % (0.0-12.0); Neutrophils % (auto) 91.2 % (37.0-80.0); Nucleated Red Blood Cells % 0.1 %; Red Cell Distribution Width 14.9 % (11.8-14.3); White Blood Cell 18.7 10^3/uL (4.4-10.8)
[2022-03-08 05:36] LABS: Potassium 3.3 mmol/L (3.5-5.1)
[2022-03-08 05:44] LABS: Albumin 2.2 g/dL (3.4-5.0); BUN/Creatinine Ratio 45.7; Calcium 8.3 mg/dL (8.5-10.1); Magnesium 2.1 mg/dL (1.6-2.6)
[2022-03-08 05:47] LABS: Bilirubin, Total 0.3 mg/dL (0.2-1.0); Phosphorus 2.5 mg/dL (2.5-4.90); Total Protein 7.1 g/dL (6.4-8.2)
[2022-03-08] MEDS: metroNIDAZOLE 500MG/100ML 100 ML IV SCH ×3 (05:53→21:11)
[2022-03-08] MEDS: InsuLIN REG 1unit/0.01ml Soln (100units/ml) SC SCH ×4 (05:54→23:45)
[2022-03-08] MEDS: ACCU-CHEK COMFORT CURVE STRIP VI SCH ×4 (05:54→22:58)
[2022-03-08] MEDS: BUDESONIDE (INHALATION) 0.5 MG/2 ML NEB NEB SCH ×2 (06:15→21:30)
[2022-03-08] MEDS ORDERED: MICAFUNGIN SODIUM 100 MG in SODIUM CHL 0.9% 100 ML IV SCH (10:00)
[2022-03-08] MEDS: PANTOPRAZOLE 40 MG/10 ML VIAL INJ IV SCH (10:16)
[2022-03-08] MEDS: methylPREDNISolone SOD SUCC 40 MG/ML VL IV SCH (10:16)
[2022-03-08] MEDS: FUROSEMIDE 40 MG/4 ML VIAL IV SCH (10:16)
[2022-03-08] MEDS: ENOXAPARIN SOD 100 MG/1 ML SYRINGE SC SCH ×2 (10:17→21:11)
[2022-03-08] MEDS: CEFTRIAXONE SODIUM 2 GM in D5W 5% 50 ML IV SCH (10:20)
[2022-03-08] MEDS: INSULIN LANTUS (GLARGINE) 1 /0.01ml (100units/ml) SC SCH ×2 (10:20→21:28)
[2022-03-08] MEDS: HYDROmorphone HCL 2 MG/ML VL IV PRN ×2 (10:21→21:17)
[2022-03-08] MEDS ORDERED: POTASSIUM PHOSP 26.4MEQ(18MMOL) IN NS 100 ML IV ONE (10:30)
[2022-03-08] MEDS: PHENYLEPHRINE INJ 80 MG in SODIUM CHL 0.9% 242 ML IV SCH (11:00)
[2022-03-08] MEDS: fentaNYL Drip 2500mCg/250mlNS 250 ML IV SCH (11:00)
[2022-03-08] MEDS: LORazepam 2MG/ML-1ML VIAL IV PRN ×2 (11:35→19:57)
[2022-03-08] MEDS: MIDAZOLAM DRIP 50 mg/50mL 50 ML IV SCH (19:30)
[2022-03-08] MEDS: TEMAZEPAM 15 MG CAP PO PRN (19:57)
[2022-03-08] MEDS ORDERED: TPN*HIGH CONC* PER PHARMACY IV NR ×10 (20:00)
[2022-03-08] MEDS: TPN*HIGH CONC* PER PHARMACY IV NR ×8 (20:10)
[2022-03-08] MEDS: NOREPINEPHRINE 8 MG/250ML KIT 250 ML IV SCH (20:10)
[2022-03-08] MEDS: ACETAMINOPHEN 650 mg PER 20.3 mL UD GT PRN (23:07)
[2022-03-09] VITALS (19 sets, daily range): BP systolic 104–137; BP diastolic 66–91
[2022-03-09] MEDS: HYDROmorphone HCL 2 MG/ML VL IV PRN ×4 (01:22→22:21)
[2022-03-09] MEDS: IPRATROPIUM BROM 0.5 MG/2.5ML INH SOL NEB SCH ×4 (02:09→18:34)
[2022-03-09] MEDS: ALBUTEROL SULF 2.5 MG/0.5ML(0.5%) NEB SOLN NEB SCH ×4 (02:09→18:34)
[2022-03-09 03:52] LABS: Basophils # (auto) 0.1 10 ^3/uL (0-0.2); Basophils % (auto) 0.6 % (0.0-2.0); Eosinophils # (auto) 0.1 10 ^3/uL (0-0.8); Eosinophils % (auto) 0.2 % (0.0-7.0); Hematocrit 28.7 % (36.0-46.0); Hemoglobin 9.4 g/dL (12.2-16.2); Lymphocytes # (auto) 2.8 10 ^3/uL (0.4-5.4); Lymphocytes % (auto) 12.9 % (10.0-50.0); Mean Corpuscular Hemoglobin 28.7 pg (28.0-32.0); Mean Corpuscular Hgb Conc. 32.9 g/dL (32.0-36.0); Mean Corpuscular Volume 87.3 fL (80.0-100.0); Monocytes # (auto) 2.1 10 ^3/uL (0-1.3); Monocytes % (auto) 9.7 % (0.0-12.0); Neutrophils # (auto) 16.9 10 ^3/uL (1.6-8.6); Neutrophils % (auto) 76.6 % (37.0-80.0); Red Blood Cells 3.29 10^6/uL (4.0-5.20)
[2022-03-09 04:17] LABS: Potassium 3.3 mmol/L (3.5-5.1)
[2022-03-09 04:21] LABS: Albumin 2.1 g/dL (3.4-5.0); BUN/Creatinine Ratio 52.8; Calcium 7.9 mg/dL (8.5-10.1); Magnesium 2.2 mg/dL (1.6-2.6)
[2022-03-09 04:24] LABS: Bilirubin, Total 0.2 mg/dL (0.2-1.0); Phosphorus 2.8 mg/dL (2.5-4.90); Total Protein 6.4 g/dL (6.4-8.2)
[2022-03-09] MEDS: metroNIDAZOLE 500MG/100ML 100 ML IV SCH ×3 (04:53→22:14)
[2022-03-09] MEDS: ACCU-CHEK COMFORT CURVE STRIP VI SCH ×4 (04:53→22:15)
[2022-03-09] MEDS: InsuLIN REG 1unit/0.01ml Soln (100units/ml) SC SCH ×4 (05:09→22:14)
[2022-03-09] MEDS ORDERED: POTASSIUM EFFERVESENT TAB 25 MEQ GT ONE (05:30)
[2022-03-09] MEDS: BUDESONIDE (INHALATION) 0.5 MG/2 ML NEB NEB SCH ×2 (06:43→22:00)
[2022-03-09] MEDS ORDERED: POTASSIUM CHL 20MEQ/100ML 100 ML IV ONE (08:30)
[2022-03-09] MEDS ORDERED: methylPREDNISolone SOD SUCC 40 MG/ML VL IV SCH (10:00)
[2022-03-09] MEDS ORDERED: predniSONE 20 MG TAB PO SCH (10:00)
[2022-03-09] MEDS: FLUoxetine HCL 20 MG CAP PO SCH (11:10)
[2022-03-09] MEDS: INSULIN LANTUS (GLARGINE) 1 /0.01ml (100units/ml) SC SCH ×2 (11:10→22:15)
[2022-03-09] MEDS: ENOXAPARIN SOD 100 MG/1 ML SYRINGE SC SCH ×2 (11:11→22:15)
[2022-03-09] MEDS: FUROSEMIDE 40 MG/4 ML VIAL IV SCH (11:11)
[2022-03-09] MEDS: PANTOPRAZOLE 40 MG TAB PO SCH (11:11)
[2022-03-09] MEDS: CEFTRIAXONE SODIUM 2 GM in D5W 5% 50 ML IV SCH (11:12)
[2022-03-09] MEDS: MICAFUNGIN SODIUM 100 MG in SODIUM CHL 0.9% 100 ML IV SCH (11:12)
[2022-03-09] MEDS ORDERED: DEXTROSE (50%) 50ML SYRG IV PRN (11:15)
[2022-03-09] MEDS ORDERED: TPN*HIGH CONC* PER PHARMACY IV NR ×10 (20:00)
[2022-03-09] MEDS: QUEtiapine FUMARATE 100 MG TAB PO SCH (22:14)
[2022-03-10] VITALS (16 sets, daily range): BP systolic 91–147; BP diastolic 48–78
[2022-03-10] MEDS: HYDROmorphone HCL 2 MG/ML VL IV PRN ×2 (03:30→19:45)
[2022-03-10 04:45] LABS: Basophils # (auto) 0.2 10 ^3/uL (0-0.2); Eosinophils # (auto) 0.2 10 ^3/uL (0-0.8); Hematocrit 29.4 % (36.0-46.0); Hemoglobin 9.8 g/dL (12.2-16.2); Lymphocytes # (auto) 3.2 10 ^3/uL (0.4-5.4); Lymphocytes % (auto) 14.4 % (10.0-50.0); Mean Corpuscular Hemoglobin 28.8 pg (28.0-32.0); Mean Corpuscular Hgb Conc. 33.4 g/dL (32.0-36.0); Mean Corpuscular Volume 86.3 fL (80.0-100.0); Monocytes # (auto) 1.6 10 ^3/uL (0-1.3); Monocytes % (auto) 7.1 % (0.0-12.0); Neutrophils # (auto) 17.2 10 ^3/uL (1.6-8.6); Neutrophils % (auto) 76.5 % (37.0-80.0); Nucleated Red Blood Cells % 0.1 %; Red Blood Cells 3.41 10^6/uL (4.0-5.20); Red Cell Distribution Width 14.8 % (11.8-14.3); White Blood Cell 22.5 10^3/uL (4.4-10.8)
[2022-03-10] MEDS: HYDROcodone-ACET 5/325MG TAB PO PRN ×2 (04:51→21:57)
[2022-03-10 05:09] LABS: Albumin 2.2 g/dL (3.4-5.0); BUN/Creatinine Ratio 43.5; Calcium 8.1 mg/dL (8.5-10.1); Potassium 4.1 mmol/L (3.5-5.1)
[2022-03-10 05:12] LABS: Bilirubin, Total 0.3 mg/dL (0.2-1.0); Phosphorus 2.9 mg/dL (2.5-4.90); Total Protein 6.6 g/dL (6.4-8.2)
[2022-03-10] MEDS: ALBUTEROL SULF 2.5 MG/0.5ML(0.5%) NEB SOLN NEB SCH ×4 (05:57→18:31)
[2022-03-10] MEDS: IPRATROPIUM BROM 0.5 MG/2.5ML INH SOL NEB SCH ×4 (05:58→18:31)
[2022-03-10] MEDS: BUDESONIDE (INHALATION) 0.5 MG/2 ML NEB NEB SCH ×2 (05:58→18:31)
[2022-03-10] MEDS: metroNIDAZOLE 500MG/100ML 100 ML IV SCH ×3 (06:28→21:56)
[2022-03-10] MEDS: InsuLIN REG 1unit/0.01ml Soln (100units/ml) SC SCH ×4 (06:53→22:04)
[2022-03-10] MEDS: ACCU-CHEK COMFORT CURVE STRIP VI SCH ×4 (06:53→22:04)
[2022-03-10] MEDS ORDERED: OMNIPAQUE ORAL SOLN 500ml 12mg/ml PO ONE (07:04)
[2022-03-10] MEDS: INSULIN LANTUS (GLARGINE) 1 /0.01ml (100units/ml) SC SCH ×2 (10:00→22:00)
[2022-03-10] MEDS: CEFTRIAXONE SODIUM 2 GM in D5W 5% 50 ML IV SCH (10:20)
[2022-03-10] MEDS: MICAFUNGIN SODIUM 100 MG in SODIUM CHL 0.9% 100 ML IV SCH (10:20)
[2022-03-10] MEDS: ENOXAPARIN SOD 100 MG/1 ML SYRINGE SC SCH ×2 (10:20→22:04)
[2022-03-10] MEDS: FUROSEMIDE 40 MG/4 ML VIAL IV SCH (10:20)
[2022-03-10] MEDS ORDERED: IOHEXOL 300 MG/ML 100ML BOTTLE IJ ONE (11:46)
[2022-03-10] MEDS: PANTOPRAZOLE 40 MG TAB PO SCH (13:29)
[2022-03-10] MEDS: FLUoxetine HCL 20 MG CAP PO SCH (13:29)
[2022-03-10] MEDS: MEROPENEM 1GM IVPB 100 ML IV SCH ×2 (14:14→22:00)
[2022-03-10] MEDS: QUEtiapine FUMARATE 100 MG TAB PO SCH (21:56)
[2022-03-10] MEDS: ONDANSETRON HCL 4 MG/2 ML VIAL IV PRN (21:57)
[2022-03-10] MEDS: TEMAZEPAM 15 MG CAP PO PRN (22:58)
[2022-03-11] VITALS (10 sets, daily range): BP systolic 101–130; BP diastolic 56–85
[2022-03-11] MEDS: ALBUTEROL SULF 2.5 MG/0.5ML(0.5%) NEB SOLN NEB SCH ×4 (00:16→18:36)
[2022-03-11] MEDS: IPRATROPIUM BROM 0.5 MG/2.5ML INH SOL NEB SCH ×4 (00:16→18:36)
[2022-03-11] MEDS: HYDROcodone-ACET 5/325MG TAB PO PRN ×4 (02:32→21:48)
[2022-03-11] MEDS: ACETAMINOPHEN 650 mg PER 20.3 mL UD GT PRN (03:16)
[2022-03-11] MEDS: MEROPENEM 1GM IVPB 100 ML IV SCH ×3 (06:00→22:19)
[2022-03-11] MEDS: metroNIDAZOLE 500MG/100ML 100 ML IV SCH (06:00)
[2022-03-11] MEDS: BUDESONIDE (INHALATION) 0.5 MG/2 ML NEB NEB SCH ×2 (06:10→18:36)
[2022-03-11 06:33] LABS: Basophils # (auto) 0.1 10 ^3/uL (0-0.2); Basophils % (auto) 0.6 % (0.0-2.0); Eosinophils # (auto) 0.2 10 ^3/uL (0-0.8); Eosinophils % (auto) 0.9 % (0.0-7.0); Hematocrit 29.5 % (36.0-46.0); Hemoglobin 10.1 g/dL (12.2-16.2); Lymphocytes # (auto) 2.2 10 ^3/uL (0.4-5.4); Lymphocytes % (auto) 13.1 % (10.0-50.0); Mean Corpuscular Hemoglobin 29.7 pg (28.0-32.0); Mean Corpuscular Hgb Conc. 34.2 g/dL (32.0-36.0); Mean Corpuscular Volume 86.8 fL (80.0-100.0); Monocytes # (auto) 1.4 10 ^3/uL (0-1.3); Monocytes % (auto) 8.1 % (0.0-12.0); Neutrophils # (auto) 13.2 10 ^3/uL (1.6-8.6); Neutrophils % (auto) 77.3 % (37.0-80.0); Red Blood Cells 3.39 10^6/uL (4.0-5.20); Red Cell Distribution Width 14.7 % (11.8-14.3); White Blood Cell 17.1 10^3/uL (4.4-10.8)
[2022-03-11] MEDS: ACCU-CHEK COMFORT CURVE STRIP VI SCH ×4 (06:40→22:20)
[2022-03-11] MEDS: InsuLIN REG 1unit/0.01ml Soln (100units/ml) SC SCH ×4 (06:40→22:21)
[2022-03-11 07:05] LABS: Potassium 3.7 mmol/L (3.5-5.1)
[2022-03-11 07:11] LABS: Albumin 2.3 g/dL (3.4-5.0); BUN/Creatinine Ratio 35.2; Calcium 8.1 mg/dL (8.5-10.1)
[2022-03-11 07:15] LABS: Bilirubin, Total 0.4 mg/dL (0.2-1.0); Total Protein 6.6 g/dL (6.4-8.2)
[2022-03-11] MEDS: MICAFUNGIN SODIUM 100 MG in SODIUM CHL 0.9% 100 ML IV SCH (09:48)
[2022-03-11] MEDS: ENOXAPARIN SOD 100 MG/1 ML SYRINGE SC SCH ×2 (09:48→21:47)
[2022-03-11] MEDS: PANTOPRAZOLE 40 MG TAB PO SCH (09:48)
[2022-03-11] MEDS: FLUoxetine HCL 20 MG CAP PO SCH (09:49)
[2022-03-11] MEDS: HYDROmorphone HCL 2 MG/ML VL IV PRN (09:49)
[2022-03-11] MEDS: INSULIN LANTUS (GLARGINE) 1 /0.01ml (100units/ml) SC SCH ×2 (09:50→22:20)
[2022-03-11] MEDS: MORPHINE SULFATE INJECTION 2 MG/ML SYRG IV PRN (17:17)
[2022-03-11] MEDS: QUEtiapine FUMARATE 100 MG TAB PO SCH (22:20)
[2022-03-11] MEDS: LORazepam 2MG/ML-1ML VIAL IV PRN (23:26)
[2022-03-12] MEDS: IPRATROPIUM BROM 0.5 MG/2.5ML INH SOL NEB SCH ×4 (00:35→18:17)
[2022-03-12] MEDS: ALBUTEROL SULF 2.5 MG/0.5ML(0.5%) NEB SOLN NEB SCH ×4 (00:35→18:17)
[2022-03-12] MEDS: MORPHINE SULFATE INJECTION 2 MG/ML SYRG IV PRN ×3 (03:23→20:19)
[2022-03-12 05:25] LABS: Basophils # (auto) 0.1 10 ^3/uL (0-0.2); Eosinophils # (auto) 0.2 10 ^3/uL (0-0.8); Eosinophils % (auto) 1.8 % (0.0-7.0); Hematocrit 28.9 % (36.0-46.0); Hemoglobin 9.6 g/dL (12.2-16.2); Lymphocytes # (auto) 2.1 10 ^3/uL (0.4-5.4); Lymphocytes % (auto) 16.7 % (10.0-50.0); Mean Corpuscular Hemoglobin 28.8 pg (28.0-32.0); Mean Corpuscular Hgb Conc. 33.3 g/dL (32.0-36.0); Mean Corpuscular Volume 86.6 fL (80.0-100.0); Monocytes % (auto) 8.1 % (0.0-12.0); Neutrophils # (auto) 9.2 10 ^3/uL (1.6-8.6); Neutrophils % (auto) 72.4 % (37.0-80.0); Nucleated Red Blood Cells % 0.1 %; Red Blood Cells 3.33 10^6/uL (4.0-5.20); Red Cell Distribution Width 15.2 % (11.8-14.3); White Blood Cell 12.7 10^3/uL (4.4-10.8)
[2022-03-12 05:51] LABS: Calcium 8.2 mg/dL (8.5-10.1); Potassium 3.8 mmol/L (3.5-5.1)
[2022-03-12 05:54] LABS: BUN/Creatinine Ratio 24.2
[2022-03-12] MEDS: MEROPENEM 1GM IVPB 100 ML IV SCH (06:09)
[2022-03-12] MEDS: ACCU-CHEK COMFORT CURVE STRIP VI SCH ×4 (07:03→22:06)
[2022-03-12] MEDS: InsuLIN REG 1unit/0.01ml Soln (100units/ml) SC SCH ×4 (07:04→22:00)
[2022-03-12] MEDS: BUDESONIDE (INHALATION) 0.5 MG/2 ML NEB NEB SCH (07:49)
[2022-03-12] MEDS: MICAFUNGIN SODIUM 100 MG in SODIUM CHL 0.9% 100 ML IV SCH (08:59)
[2022-03-12 09:00] VITALS: BP 132/59
[2022-03-12] MEDS ORDERED: FLUCONAZOLE 100 MG TAB PO SCH (10:00)
[2022-03-12] MEDS: PANTOPRAZOLE 40 MG TAB PO SCH (10:57)
[2022-03-12] MEDS: APIXABAN 5 MG TAB PO SCH ×2 (10:57→21:58)
[2022-03-12] MEDS: FLUoxetine HCL 20 MG CAP PO SCH (10:57)
[2022-03-12] MEDS: INSULIN LANTUS (GLARGINE) 1 /0.01ml (100units/ml) SC SCH ×2 (11:37→22:06)
[2022-03-12 13:00] VITALS: BP 130/82
[2022-03-12 17:00] VITALS: BP 128/70
[2022-03-12] MEDS: HYDROcodone-ACET 5/325MG TAB PO PRN ×2 (17:31→21:57)
[2022-03-12] MEDS: QUEtiapine FUMARATE 100 MG TAB PO SCH (21:57)
[2022-03-12] MEDS: LORazepam 2MG/ML-1ML VIAL IV PRN (21:58)
[2022-03-12 22:25] VITALS: BP 124/68
[2022-03-13] MEDS: ALBUTEROL SULF 2.5 MG/0.5ML(0.5%) NEB SOLN NEB SCH ×4 (02:05→18:48)
[2022-03-13] MEDS: IPRATROPIUM BROM 0.5 MG/2.5ML INH SOL NEB SCH ×4 (02:05→18:48)
[2022-03-13 05:32] VITALS: BP 129/69
[2022-03-13 06:08] LABS: Basophils # (auto) 0.1 10 ^3/uL (0-0.2); Basophils % (auto) 0.5 % (0.0-2.0); Eosinophils # (auto) 0.2 10 ^3/uL (0-0.8); Eosinophils % (auto) 1.9 % (0.0-7.0); Hematocrit 28.9 % (36.0-46.0); Hemoglobin 9.8 g/dL (12.2-16.2); Lymphocytes # (auto) 2.2 10 ^3/uL (0.4-5.4); Mean Corpuscular Hgb Conc. 33.9 g/dL (32.0-36.0); Mean Corpuscular Volume 88.7 fL (80.0-100.0); Monocytes % (auto) 8.6 % (0.0-12.0); Neutrophils # (auto) 8.6 10 ^3/uL (1.6-8.6); Nucleated Red Blood Cells % 0.2 %; Red Blood Cells 3.25 10^6/uL (4.0-5.20); Red Cell Distribution Width 14.9 % (11.8-14.3); White Blood Cell 12.2 10^3/uL (4.4-10.8)
[2022-03-13] MEDS: ACCU-CHEK COMFORT CURVE STRIP VI SCH ×4 (06:11→22:25)
[2022-03-13] MEDS: MORPHINE SULFATE INJECTION 2 MG/ML SYRG IV PRN ×3 (06:11→21:03)
[2022-03-13 06:14] LABS: Potassium 3.6 mmol/L (3.5-5.1)
[2022-03-13] MEDS: InsuLIN REG 1unit/0.01ml Soln (100units/ml) SC SCH ×4 (06:22→22:29)
[2022-03-13 06:23] LABS: BUN/Creatinine Ratio 20.3; Calcium 8.6 mg/dL (8.5-10.1)
[2022-03-13 09:00] VITALS: BP 118/68
[2022-03-13] MEDS: FLUoxetine HCL 20 MG CAP PO SCH (09:30)
[2022-03-13] MEDS: cefTRIAXone 1GM/50ML D5W 50 ML IV SCH (09:31)
[2022-03-13] MEDS: HYDROcodone-ACET 5/325MG TAB PO PRN ×2 (09:32→22:30)
[2022-03-13] MEDS: PANTOPRAZOLE 40 MG TAB PO SCH (09:32)
[2022-03-13] MEDS: APIXABAN 5 MG TAB PO SCH ×2 (09:33→22:17)
[2022-03-13] MEDS ORDERED: FLUCONAZOLE 100 MG TAB PO ONE (10:00)
[2022-03-13] MEDS: INSULIN LANTUS (GLARGINE) 1 /0.01ml (100units/ml) SC SCH ×2 (10:06→22:28)
[2022-03-13 12:00] VITALS: BP 98/55
[2022-03-13 16:00] VITALS: BP 121/68
[2022-03-13] MEDS: QUEtiapine FUMARATE 100 MG TAB PO SCH (22:17)
[2022-03-13] MEDS: LORazepam 2MG/ML-1ML VIAL IV PRN (22:17)
[2022-03-13 22:27] VITALS: BP 120/70
[2022-03-14] MEDS: ALBUTEROL SULF 2.5 MG/0.5ML(0.5%) NEB SOLN NEB SCH ×3 (00:20→12:00)
[2022-03-14] MEDS: IPRATROPIUM BROM 0.5 MG/2.5ML INH SOL NEB SCH ×3 (00:20→12:00)
[2022-03-14] MEDS: MORPHINE SULFATE INJECTION 2 MG/ML SYRG IV PRN ×2 (03:19→13:12)
[2022-03-14 05:12] VITALS: BP 97/62
[2022-03-14] MEDS: InsuLIN REG 1unit/0.01ml Soln (100units/ml) SC SCH ×2 (07:00→11:47)
[2022-03-14] MEDS: ACCU-CHEK COMFORT CURVE STRIP VI SCH ×2 (07:12→11:46)
[2022-03-14 09:00] VITALS: BP 124/74
[2022-03-14] MEDS: cefTRIAXone 1GM/50ML D5W 50 ML IV SCH (09:36)
[2022-03-14] MEDS: APIXABAN 5 MG TAB PO SCH (09:37)
[2022-03-14] MEDS: FLUoxetine HCL 20 MG CAP PO SCH (09:37)
[2022-03-14] MEDS: HYDROcodone-ACET 5/325MG TAB PO PRN (09:37)
[2022-03-14] MEDS: PANTOPRAZOLE 40 MG TAB PO SCH (09:38)
[2022-03-14] MEDS ORDERED: FLUCONAZOLE 100 MG TAB PO SCH (10:00)
[2022-03-14] MEDS: INSULIN LANTUS (GLARGINE) 1 /0.01ml (100units/ml) SC SCH (11:49)
[2022-03-14 13:00] VITALS: BP 118/73
[2022-03-14 15:51] VITALS: BP 117/61
[2022-03-14 17:00] VITALS: BP 125/72
== END 2022-03-14 16:33 | DRG 853 ==
LOC: ER 10:59 → EDBD 10:59 → ER 17:08 → TELE 18:04 → EDBD 18:04 → ICU WEST 19:44 → DOU IN ICU 03-09 22:42 → TELE-WESTW 03-11 15:07
PROVIDERS: ADMIT Emergency Medicine; ATTEND Internal Medicine
PROC: 0DBB0ZZ Excision of Ileum, Open Approach (ICD-10-PCS; 2022-02-25)
PROC: 05HA33Z Insertion of Infusion Device into Left Brachial Vein, Percutaneous Approach (ICD-10-PCS; 2022-02-25)
PROC: B54NZZA Ultrasonography of Left Upper Extremity Veins, Guidance (ICD-10-PCS; 2022-02-25)
PROC: 5A1955Z Respiratory Ventilation, Greater than 96 Consecutive Hours (ICD-10-PCS; 2022-02-25)
PROC: 0BH17EZ Insertion of Endotracheal Airway into Trachea, Via Natural or Artificial Opening (ICD-10-PCS; 2022-02-25)
PROC: 0DTF0ZZ Resection of Right Large Intestine, Open Approach (ICD-10-PCS; principal; 2022-02-25 17:37)
PROC: 0D1B0Z4 Bypass Ileum to Cutaneous, Open Approach (ICD-10-PCS; 2022-02-26)
PROC: 02HV33Z Insertion of Infusion Device into Superior Vena Cava, Percutaneous Approach (ICD-10-PCS; 2022-02-26)
PROC: B548ZZA Ultrasonography of Superior Vena Cava, Guidance (ICD-10-PCS; 2022-02-26)
PROC: 05HB33Z Insertion of Infusion Device into Right Basilic Vein, Percutaneous Approach (ICD-10-PCS; 2022-03-10)
PROC: B54MZZA Ultrasonography of Right Upper Extremity Veins, Guidance (ICD-10-PCS; 2022-03-10)
DX: A41.9 Sepsis, unspecified organism (principal); K63.1 Perforation of intestine (nontraumatic); R65.21 Severe sepsis with septic shock; N17.0 Acute kidney failure with tubular necrosis; J15.4 Pneumonia due to other streptococci; K65.0 Generalized (acute) peritonitis; J96.01 Acute respiratory failure with hypoxia; K55.9 Vascular disorder of intestine, unspecified; I82.622 Acute embolism and thrombosis of deep veins of left upper extremity; J44.1 Chronic obstructive pulmonary disease with (acute) exacerbation; J45.901 Unspecified asthma with (acute) exacerbation; J44.0 Chronic obstructive pulmonary disease with (acute) lower respiratory infection; J90 Pleural effusion, not elsewhere classified; E83.39 Other disorders of phosphorus metabolism; E66.01 Morbid (severe) obesity due to excess calories; I48.0 Paroxysmal atrial fibrillation; Z68.38 Body mass index [BMI] 38.0-38.9, adult; E11.9 Type 2 diabetes mellitus without complications; Z20.822 Contact with and (suspected) exposure to COVID-19; F32.A Depression, unspecified; F41.9 Anxiety disorder, unspecified; R31.9 Hematuria, unspecified; I11.0 Hypertensive heart disease with heart failure; I50.9 Heart failure, unspecified; F17.200 Nicotine dependence, unspecified, uncomplicated; Z82.49 Family history of ischemic heart disease and other diseases of the circulatory system; Z83.3 Family history of diabetes mellitus; Z86.73 Personal history of transient ischemic attack (TIA), and cerebral infarction without residual deficits; Z88.1 Allergy status to other antibiotic agents; Z88.0 Allergy status to penicillin
CPT/HCPCS: 36415; 36600; 71045; 74176; 74177; 76604; 80048; 80053; 80069; 80202; 81001; 82306; 82570; 82805; 82962; 83036; 83605; 83690; 83735; 83880; 84100; 84156; 84300; 84478; 84484; 85007; 85025; 85027; 85610; 85730; 86850; 86900; 86901; 87040; 87070; 87075; 87077; 87081; 87186; 87205; 93005; 93971; 94002; 94003; 94640; 96361; 96365; 96375; 97163; 99291; C9113; G0378; J0171; J0330; J0696; J1815; J2185; J2248; J2250; J2405; J3480; J3490; J7060; P9047

== ENCOUNTER 2023-02-10 11:20 | Emergency (ER) | payer OTHER, BC, MEDICAID ==
[~2023-02-10] VITALS: Ht 172.7 cm; Wt 73.0 kg
[2023-02-10 12:32] LABS: Basophils # (auto) 0.2 10 ^3/uL (0-0.2); Basophils % (auto) 2.3 % (0.0-2.0); Eosinophils # (auto) 0.9 10 ^3/uL (0-0.8); Eosinophils % (auto) 9.7 % (0.0-7.0); Hematocrit 46.5 % (36.0-46.0); Hemoglobin 15.7 g/dL (12.2-16.2); Lymphocytes # (auto) 1.7 10 ^3/uL (0.4-5.4); Lymphocytes % (auto) 18.6 % (10.0-50.0); Mean Corpuscular Hemoglobin 28.5 pg (28.0-32.0); Mean Corpuscular Hgb Conc. 33.8 g/dL (32.0-36.0); Mean Corpuscular Volume 84.4 fL (80.0-100.0); Monocytes # (auto) 0.5 10 ^3/uL (0-1.3); Monocytes % (auto) 5.6 % (0.0-12.0); Neutrophils # (auto) 5.8 10 ^3/uL (1.6-8.6); Neutrophils % (auto) 63.8 % (37.0-80.0); Nucleated Red Blood Cells % 0.1 %; Red Blood Cells 5.51 10^6/uL (4.0-5.20); Red Cell Distribution Width 15.8 % (11.8-14.3); White Blood Cell 9.1 10^3/uL (4.4-10.8)
[2023-02-10] MEDS ORDERED: HYDROcodone-ACET 5/325MG TAB PO ONE (13:00)
[2023-02-10] MEDS ORDERED: ONDANSETRON HCL 4 MG/2 ML VIAL IV ONE ×2 (13:00→13:45)
[2023-02-10 13:37] LABS: Albumin 3.5 g/dL (3.4-5.0); Magnesium 1.5 mg/dL (1.6-2.6); Potassium 4.5 mmol/L (3.5-5.1)
[2023-02-10 13:40] LABS: Bilirubin, Total 0.5 mg/dL (0.2-1.0); Total Protein 8.4 g/dL (6.4-8.2)
[2023-02-10] MEDS ORDERED: fentaNYL CITRATE 100 MCG/2 ML VL IV ONE ×2 (13:45→18:15)
[2023-02-10] MEDS ORDERED: SODIUM CHLORIDE 0.9% 1,000 ML IV ONE (14:15)
[2023-02-10] MEDS ORDERED: MAGNESIUM SULFATE 1GM/100ML 100 ML IV ONE (14:45)
[2023-02-10] MEDS ORDERED: OXYCODONE W/ ACETAMINOPHEN 5/325MG TABLET PO ONE (17:15)
[2023-02-10 21:22] VITALS: BP 92/59
== END 2023-02-10 21:30 | disposition home or self-care (01) ==
LOC: ER 11:20 → EDBD 11:20 → EDUNIT# 11:20 → ER 21:22
DX: R10.13 Epigastric pain (principal); G89.4 Chronic pain syndrome; E83.42 Hypomagnesemia; F11.20 Opioid dependence, uncomplicated; E11.9 Type 2 diabetes mellitus without complications; E78.5 Hyperlipidemia, unspecified; Z90.49 Acquired absence of other specified parts of digestive tract; Z86.73 Personal history of transient ischemic attack (TIA), and cerebral infarction without residual deficits
CPT/HCPCS: 36415; 74176; 80053; 83605; 83690; 83735; 84484; 85025; 96365; 96366; 96375; 96376; 99285; J2405; J3010; J3475; 93005

== ENCOUNTER 2024-11-14 23:34 | Inpatient (IN) | payer MEDICARE, MEDICAID ==
[~2024-11-14] VITALS: Ht 167.6 cm; Wt 88.5 kg
[~2024-11-14 23:34] MED LIST changes: +ALBUAER3 IN; +ARIP20TA4 PO; +ASPI325T6 PO; +AZIT500T66 PO; +DIAZ-680 PO; -DIAZ2TAB PO; +FLUO1TAB14 PO; +FURO1TAB33 PO; +FURO20TA3 PO; +GABA-1250 PO; +INSLANTI SC; +LISI10TA34 PO; +LORA-1123 PO; +NITR-87 PO; +PANT40TA2 PO; +PERCOT PO; +PRED20TA2 PO; +PSYL58.632 PO; +QUET50TA PO; +QUET50TA5 PO; +TRAZ-181 PO; +ZOLP5TAB5 PO
[2024-11-15] VITALS (14 sets, daily range): BP systolic 113; BP diastolic 89; PULSE 77–107; RESP 16–22; TEMP 98; O2SAT 93–100
--- NOTE | 2024-11-15 00:09 | DVH ---
CHEST RADIOGRAPH Indication: CP Technique: Single frontal view of the chest was obtained Comparison: CHEST XRAY 1 VIEW on DOS: 03/06/22, CXR1 on DOS: 03/06/22, CXR1 on DOS: 03/04/22 FINDINGS: Lines and Tubes: None Lungs: Clear Pleura: No effusion. No pneumothorax. Cardiomediastinal contours: Unremarkable Bones: Unremarkable IMPRESSION: 1. Clear lungs.
--- NOTE | 2024-11-15 00:12 | ED.PDOC ---
History of Present Illness HPI Comments 59-year-old female brought in by EMS presents with a chief complaint of chest pain, back pain, cough, and SOB. Patient reports that her chest pain is localized to her sternal region, radiates to her back side, and started spontaneously. Patient mentions that her cough is dry and non-productive. Patient is currently sating at 99% on 2L. Chief Complaint: Chest Pain Time Seen by MD: 00:00 Primary Care Provider: UNABLE TO OBTAIN Reviewed Notes: Medications, Allergies Allergies: Coded Allergies: Levofloxacin (Verified Allergy, Severe, 11/04/15) Penicillins (Verified Allergy, Unknown, 10/01/21) Home Meds Active Scripts Azithromycin (Azithromycin) 500 Mg Tab, 1 TAB PO DAILY, #7 TAB Prov:ADELINE CIFUENTES MD 11/17/22 Nitrofurantoin Monohydrate Mac (Macrobid) 100 Mg Cap, 100 MG PO BID for 7 Days, #14 CAP Prov:JUAN A CORRALES MD 07/01/22 Psyllium (Metamucil Fiber) 51.7 % Griffin, 51.7 % PO BID for 30 Days, #60 PACK 2 Refills Prov:JUAN A CORRALES MD 07/01/22 Prednisone (Prednisone) 20 Mg Tab, 2 TAB PO DAILY for 2 Days, #4 TAB Prov:JAROCHO FINCH MD 05/29/22 Albuterol Sulfate (VENTOLIN MDI) 90 Mcg Ih, 90 MCG IN Q6HP PRN for 30 Days, #1 INH Prov:JAROCHO FINCH MD 05/29/22 Reported Medications Gabapentin (Gabapentin) 300 Mg Cap, 300 MG PO TID for 30 Days, MG 11/15/22 Furosemide (Lasix) 20 Mg Tb, 1 TAB PO BID, #90 TAB 1 Refill 11/15/22 Zolpidem Tartrate (Ambien) 10 Mg Tab, 1 TAB PO QPM, #30 TAB 5 Refills 11/15/22 Aspirin (Aspirin) 325 Mg Tab, 325 MG PO DAILY for 30 Days, MG 11/15/22 Quetiapine Fumerate (Seroquel) 50 Mg Tab, 50 MG PO for 30 Days, MG 11/15/22 Trazodone HCl (Trazodone Hydrochloride) 50 Mg Tab, 50 MG PO HS, TAB 05/27/22 Pantoprazole Sodium Sesquihydr (Protonix) 40 Mg Tab, 40 MG PO DAILY, #30 TAB 05/26/22 Aripiprazole (Abilify) 20 Mg Tab, 30 MG PO DAILY, TAB 05/26/22 Trazodone HCl (Trazodone Hydrochloride) 50 Mg Tab, 50 MG PO HS, TAB 05/26/22 Lorazepam (Lorazepam) 1 Mg Tab, 1 TAB PO TID, #90 TAB 05/26/22 Furosemide (Furosemide) 20 Mg Tab, 20 MG PO DAILY for 30 Days, MG 05/26/22 Lisinopril (Lisinopril) 10 Mg Tab, 10 MG PO DAILY for 30 Days, MG 05/26/22 Fluoxetine HCl (Pmdd) (Fluoxetine HCl) 20 Mg Tab, 40 MG PO DAILY, TAB 05/26/22 Oxycodone W/ Acetaminophen (Percocet 5/325MG) 1 Tab Tb, 1 TAB PO TID PRN for PAIN SCALE 1 THRU 6, #90 TAB 05/26/22 Zolpidem Tartrate (Zolpidem Tartrate) 5 Mg Tab, 1 TAB PO QPM, #30 TAB 2 Refills 05/25/22 Quetiapine Fumerate (Seroquel Xr) 50 Mg Tab, 100 MG PO HS for 30 Days, MG 05/25/22 Insulin Glargine (Lantus) 100 Unit/Ml Inj, 60 UNIT SC HS, INJ 05/25/22 Fluoxetine Hcl (Pmdd) (Fluoxetine) 20 Mg Cap, 40 MG PO HS, CAP 11/05/15 Quetiapine Fumarate (SEROquel TABLET) 100 Mg Tb, 80 MG PO HS 11/05/15 Morphine Sulfate (Morphine Sulfate) 30 Mg Tab, 30 MG PO BID PRN for MODERATE PAIN, TAB 11/05/15 Diazepam (VALIUM) 2 Mg Tab, PO DAILY, #30 TAB 11/05/15 Zolpidem Tartrate (Ambien) 10 Mg Tab, 1 TAB PO QPM, #30 TAB 5 Refills 11/05/15 Information Source: Patient Mode of Arrival: EMS Severity: Moderate Timing: Hours Duration: Since onset Prehospital treatment: None Past Medical History PAST MEDICAL HISTORY: Anxiety, CVA, Depression, DM, High Lipids Surgical History: Cholecystectomy, POTATO LOADER History: No Pertinent POTATO LOADER History Family History Family History: Reviewed,noncontributory to illness Social History Smoker: Non-Smoker Alcohol: Denies ETOH Use Drugs: Denies Drug Use Lives In: Home Constitutional: denies: chills, diaphoresis, fatigue, fever, malaise, sweats, weakness, others EENTM: denies: blurred vision, double vision, ear bleeding, ear discharge, ear drainage, ear pain, ear ringing, eye pain, eye redness, hearing loss, mouth pain, mouth swelling, nasal discharge, nose bleeding, nose congestion, nose pain, photophobia, tearing, throat pain, throat swelling, voice changes, others Respiratory: reports: cough, shortness of breath; denies: hemoptysis, orthopnea, SOB at rest, SOB with excertion, stridor, wheezing, others Cardiovascular: reports: chest pain Gastrointestinal: denies: abdomen distended, abdominal pain, blood streaked bowels, constipated, diarrhea, dysphagia, difficulty swallowing, hematemesis, melena, nausea, poor appetite, poor fluid intake, rectal bleeding, rectal pain, vomiting, others Genitourinary: denies: abnormal vagina bleeding, burning, dyspareunia, dysuria, flank pain, frequency, hematuria, incontinence, pain, , vagina discharge, urgency, others Neurological: denies: dizziness, fainting, headache, left sided numbness, left sided weakness, numbness, paresthesia, pre-existing deficit, right sided numbness, right sided weakness, seizure, speech problems, tingling, tremors, weakness, others Musculoskeletal: reports: back pain; denies: gout, joint pain, joint swelling, muscle pain, muscle stiffness, neck pain, others Integumetry: denies: bruises, change in color, change in hair/nails, dryness, laceration, lesions, lumps, rash, wounds, others Allergic/Immunocompromised: denies: Difficulty Healing, Frequent Infections, Hives, Itching, others Hematologic/Lymphatic: denies: anemia, blood clots, easy bleeding, easy bruising, swollen glands, others Endocrine: denies: excessive hunger, excessive sweating, excessive thirst, excessive urination, flushing, intolerance to cold, intolerance to heat, unexplained weight gain, unexplained weight loss, others Psychiatric: denies: anxiety, bipolar disorder, depression, hopeless, panic disorder, schizophrenia, sleepless, suicidal, others All Other Systems: Reviewed and Negative Physical Exam General Appearance: No Apparent Distress, Normal HEENT: Normal ENT Inspection, Pharynx Normal, TMs Normal Neck: Full Range of Motion, Non-Tender, Normal, Normal Inspection Respiratory: Chest Non-Tender, Lungs Clear, No Accessory Muscle Use, No Respiratory Distress, Normal Breath Sounds Cardiovascular: No Edema, No JVD, No Murmur, No Gallop, Normal Peripheral Pulses, Regular Rate/Rhythm Breast Exam: Deferred Gastrointestinal: No Organomegaly, Non Tender, No Pulsatile Mass, Normal Bowel Sounds, Soft Genitalia: Deferred Pelvic: Deferred Rectal: Deferred Extremities: No calf tenderness, Normal capillary refill, Normal inspection, Normal range of motion, Non-tender, No pedal edema Musculoskeletal : Apperance: Normal Neurologic: Alert, insurance administrative assistant II-XII nml as Tested, No Motor Deficits, Normal Affect, Normal Mood, No Sensory Deficits Cerebellar Function: Normal Reflexes: Normal Skin: Dry, Normal Color, Warm Lymphatic: No Adenopathy Was a procedure done? Was a procedure done?: No Differential Dx Considerations may include: Costochondritis angina myocardial infarction pulmonary embolus X-Ray, Labs, Meds, VS Vital Signs Date Time Temp Pulse Resp B/P (MAP) Pulse Ox O2 Delivery O2 Flow Rate FiO2 11/14/24 23:58 98.0 90 16 113/89 (97) 98 98.0 11/14/24 23:41 98.9 89 16 99/67 (78) 100 11/14/24 23:35 91 Lab Test 11/14/24 23:59 Range/Units White Blood Count 5.9 4.4-10.8 10^3/uL Red Blood Count 4.10 4.0-5.20 10^6/uL Hemoglobin 12.9 12.2-16.2 g/dL Hematocrit 38.5 36.0-46.0 % Mean Corpuscular Volume 94.0 80.0-100.0 fL Mean Corpuscular Hemoglobin 31.6 28.0-32.0 pg Mean Corpuscular Hemoglobin Concent 33.6 32.0-36.0 g/dL Red Cell Distribution Width 12.7 11.8-14.3 % Platelet Count 140 140-450 10^3/uL Mean Platelet Volume 9.6 6.9-10.8 fL Neutrophils (%) (Auto) 80.2 H 37.0-80.0 % Lymphocytes (%) (Auto) 7.9 L 10.0-50.0 % Monocytes (%) (Auto) 7.1 0.0-12.0 % Eosinophils (%) (Auto) 3.8 0.0-7.0 % Basophils (%) (Auto) 1.0 0.0-2.0 % Neutrophils # (Auto) 4.7 1.6-8.6 10 ^3/uL Lymphocytes # (Auto) 0.5 0.4-5.4 10 ^3/uL Monocytes # (Auto) 0.4 0-1.3 10 ^3/uL Eosinophils # (Auto) 0.2 0-0.8 10 ^3/uL Basophils # (Auto) 0.1 0-0.2 10 ^3/uL Nucleated Red Blood Cells 0.0 % Sodium Level 140 136-145 mmol/L Potassium Level 3.4 L 3.5-5.1 mmol/L Chloride Level 110 H 98-107 mmol/L Carbon Dioxide Level 20 20-31 mmol/L Anion Gap 10 5-15 Blood Urea Nitrogen 15 9-23 mg/dL Creatinine 1.22 H 0.550-1.02 mg/dL Glomerular Filtration Rate Calc 50 >90 mL/min BUN/Creatinine Ratio 12.3 10.0-20.0 Serum Glucose 163 H 74-106 mg/dL Calcium Level 9.8 8.7-10.4 mg/dL Magnesium Level 1.1 L 1.6-2.6 mg/dL Total Bilirubin 0.4 0.2-1.0 mg/dL Aspartate Amino Transferase (AST) 33 13-40 U/L Alanine Aminotransferase (ALT) 36 7-40 U/L Alkaline Phosphatase 147 H 46-116 U/L Troponin I High Sensitivity 3 L </=34 ng/L B-Type Natriuretic Peptide 22.33 0-100 pg/mL Total Protein 7.0 5.7-8.2 g/dL Albumin 4.0 3.2-4.8 g/dL BNP is 22. Troponin is three. EKG shows no signs of ischemia Chemistries and CBC were reviewed by me. The patient is responding to nitroglycerin. We will admit the patient to the hospitalist for further evaluation. Dr. Branch is two administrative staff supervisor. Time of 1ST Reevaluation: 00:30 Reevaluation 1ST: Unchanged Patient Education/Counseling: Diagnosis, Treatment, Prognosis Family Education/Counseling: No Family Present Departure 1 Departure Time of Disposition: 00:41 Impression: Primary Impression: Atypical chest pain Disposition: 09 ADMITTED INPATIENT Admit to: Tele Condition: Guarded Critical Care Note Critical Care Time?: Yes (45 min-critical care time only) Stability Stability form required: No Heart Score Heart Score: Heart Score Response (Comments) Value History Highly Suspicious 2 EKG Normal 0 Age 45-64 1 Risk Factors >3 or Hx ASHD 2 Troponin >3 x's Normal limit 2 Total 7 I personally scribed for MODESTO MCMILLAN MD ([email or web address]) on 11/15/24 at 00:12. Electronically submitted by Andrzej Weeks ([email or web address]). MODESTO MCMILLAN MD Nov 15, 2024 00:12
[2024-11-15 00:19] LABS: Basophils # (auto) 0.1 10 ^3/uL (0-0.2); Eosinophils # (auto) 0.2 10 ^3/uL (0-0.8); Eosinophils % (auto) 3.8 % (0.0-7.0); Hematocrit 38.5 % (36.0-46.0); Hemoglobin 12.9 g/dL (12.2-16.2); Lymphocytes # (auto) 0.5 10 ^3/uL (0.4-5.4); Lymphocytes % (auto) 7.9 % (10.0-50.0); Mean Corpuscular Hemoglobin 31.6 pg (28.0-32.0); Mean Corpuscular Hgb Conc. 33.6 g/dL (32.0-36.0); Monocytes # (auto) 0.4 10 ^3/uL (0-1.3); Monocytes % (auto) 7.1 % (0.0-12.0); Neutrophils # (auto) 4.7 10 ^3/uL (1.6-8.6); Neutrophils % (auto) 80.2 % (37.0-80.0); Platelet Count (auto) 140 10^3/uL (140-450); Red Cell Distribution Width 12.7 % (11.8-14.3); White Blood Cell 5.9 10^3/uL (4.4-10.8)
[2024-11-15 00:30] LABS: Alanine Aminotransferase 36 U/L (7-40); Anion Gap 10 (5-15); Aspartate Aminotransferase 33 U/L (13-40); BUN/Creatinine Ratio 12.3 (10.0-20.0); Bilirubin, Total 0.4 mg/dL (0.2-1.0); Blood Urea Nitrogen 15 mg/dL (9-23); Calcium 9.8 mg/dL (8.7-10.4); Sodium 140 mmol/L (136-145)
[2024-11-15 00:31] LABS: Alkaline Phosphatase 147 U/L (46-116); Carbon Dioxide 20 mmol/L (20-31); Chloride 110 mmol/L (98-107); Glucose 163 mg/dL (74-106); Magnesium 1.1 mg/dL (1.6-2.6); Potassium 3.4 mmol/L (3.5-5.1)
[2024-11-15 01:38] LABS: INR 0.97 (0.9-1.15); Partial Thromboplastin Time 21.1 SEC (24.5-34.5); Prothrombin Time 10.3 sec (9.3-11.8)
[2024-11-15] MEDS ORDERED: NITROGLYCERIN 0.4 MG SL TAB SL PRN (02:00)
[2024-11-15] MEDS ORDERED: ACETAMINOPHEN 325 MG TAB PO PRN (02:00)
--- NOTE | 2024-11-15 02:01 | DVHHPRES ---
History of Present Illness Resident Creating Document: KATHY ELIAS RESIDENT History of Present Illness This is a 59-year-old female with past medical history of CHF, COPD on home oxygen, CKD stage III type 2 diabetes mellitus, major depressive disorder, presented to the ED with a with chief complaint of chest pain and shortness of breath for last 2 days prior to this admission. According to the patient the chest pain started yesterday which was sharp in nature 08/08 and also felt like heaviness in the chest, localized in the central of the chest and radiate to the back, aggravated during deep breathing without any relieving factor and associated with shortness of breath and dry cough.The patient has COPD and she is on home oxygen about 2 L and use oxygen whenever needed. Patient also mention positive sick contact but denies dizziness, diaphoresis , paroxysmal nocturnal dyspnea, fever, malaise and recent traveling. She has a colostomy for last 2 years and recently she noticed pain, erythema and edema around the stomal wound and scattered rashes around the skin of the stoma. Initial EKG and troponin trends are unremarkable. The patient is admitted for further evaluation and management of chest pain. Cardiovascular: CHF, HTN, hyperipidemia Psych: Depression Renal/: Chronic renal insuff, Chronic renal failure Past Surgical History Colostomy, , hysterectomy and right elbow surgery Family History Family history is significant for cardiac disease Past Social History Used to smoke more than 2 packets per day for 50 yrs, cutting down to 5-10 cigarettes per day for last few months, nonalcoholic and smoked marijuana Review of Systems Constitutional: No: Fever, Chills, Sweats, Weakness, Malaise, Other Eyes: No: Pain, Vision change, Conjunctivae inflammation, Eyelid inflammation, Other, Redness ENT: No: Ear pain, Ear discharge, Nose pain, Nose discharge, Nose congestion, M outh pain, Mouth swelling, Throat pain, Throat swelling, Other Respiratory: Cough, Dry, Shortness of breath Cardiovascular: Chest Pain, Lt Headedness Gastrointestinal: Abdominal Pain; No: Nausea, Vomiting, Diarrhea, Constipation, Melena, Hematochezia, Other Genitourinary: No Dysuria, No Frequency, No Incontinence, No Hematuria, No Retention, No Other Musculoskeletal: No: other, neck pain, shoulder pain, arm pain, back pain, hand pain, leg pain, foot pain Skin: No: Rash, Lesions, Jaundice, Bruising, Other Neurological: No: Weakness, Numbness, Incoordination, Change in speech, Confusion, Seizures, Other Allergies: Coded Allergies: Levofloxacin (Verified Allergy, Severe, 11/04/15) Penicillins (Verified Allergy, Unknown, 10/01/21) Exam Vital Signs Vital Signs Date Time Temp Pulse Resp B/P (MAP) Pulse Ox O2 Delivery O2 Flow Rate FiO2 11/14/24 23:58 98.0 90 16 113/89 (97) 98 98.0 Exam Physical examination: General Appearance: Alert, Oriented X3, Cooperative, No acute distress HEENT: Atraumatic, PERRLA, EOMI, Mucous membrane moist/pink Respiratory: Clear to auscultation, Normal air movement Cardiovascular: Regular rate, Normal S1, Normal S2, No murmurs, no chest wall tenderness Abdominal: Normal bowel sounds, Soft, No tenderness, No hepatospenomegaly, No masses Extremities: No clubbing, No cyanosis, No edema, Normal pulses, No tenderness/swelling Skin: No rashes, No breakdown, No significant lesion Neuro: Normal gait, Normal speech, Strength at 5/5 X4 ext, Normal tone, Sensation intact, Cranial nerves 3-12 NL, Reflexes 2+ Psych/Mental Status: Mental status NL, Mood NL Labs/Xrays Labs Test 11/15/24 00:59 11/15/24 00:45 11/14/24 23:59 Range/Units Troponin I High Sensitivity 3 L </=34 ng/L Prothrombin Time 10.3 9.3-11.8 sec Prothrombin Time INR 0.97 0.9-1.15 Activated Partial Thromboplast Time 21.1 L 24.5-34.5 SEC White Blood Count 5.9 4.4-10.8 10^3/uL Red Blood Count 4.10 4.0-5.20 10^6/uL Hemoglobin 12.9 12.2-16.2 g/dL Hematocrit 38.5 36.0-46.0 % Mean Corpuscular Volume 94.0 80.0-100.0 fL Mean Corpuscular Hemoglobin 31.6 28.0-32.0 pg Mean Corpuscular Hemoglobin Concent 33.6 32.0-36.0 g/dL Red Cell Distribution Width 12.7 11.8-14.3 % Platelet Count 140 140-450 10^3/uL Mean Platelet Volume 9.6 6.9-10.8 fL Neutrophils (%) (Auto) 80.2 H 37.0-80.0 % Lymphocytes (%) (Auto) 7.9 L 10.0-50.0 % Monocytes (%) (Auto) 7.1 0.0-12.0 % Eosinophils (%) (Auto) 3.8 0.0-7.0 % Basophils (%) (Auto) 1.0 0.0-2.0 % Neutrophils # (Auto) 4.7 1.6-8.6 10 ^3/uL Lymphocytes # (Auto) 0.5 0.4-5.4 10 ^3/uL Monocytes # (Auto) 0.4 0-1.3 10 ^3/uL Eosinophils # (Auto) 0.2 0-0.8 10 ^3/uL Basophils # (Auto) 0.1 0-0.2 10 ^3/uL Nucleated Red Blood Cells 0.0 % Sodium Level 140 136-145 mmol/L Potassium Level 3.4 L 3.5-5.1 mmol/L Chloride Level 110 H 98-107 mmol/L Carbon Dioxide Level 20 20-31 mmol/L Anion Gap 10 5-15 Blood Urea Nitrogen 15 9-23 mg/dL Creatinine 1.22 H 0.550-1.02 mg/dL Glomerular Filtration Rate Calc 50 >90 mL/min BUN/Creatinine Ratio 12.3 10.0-20.0 Serum Glucose 163 H 74-106 mg/dL Calcium Level 9.8 8.7-10.4 mg/dL Magnesium Level 1.1 L 1.6-2.6 mg/dL Total Bilirubin 0.4 0.2-1.0 mg/dL Aspartate Amino Transferase (AST) 33 13-40 U/L Alanine Aminotransferase (ALT) 36 7-40 U/L Alkaline Phosphatase 147 H 46-116 U/L B-Type Natriuretic Peptide 22.33 0-100 pg/mL Total Protein 7.0 5.7-8.2 g/dL Albumin 4.0 3.2-4.8 g/dL Assessment/Plan Assessment/Plan Assessment and plan: # Atypical chest pain - EKG and troponins were unremarkable - chest x-ray revealed normal study - Rolla 10/325 mg q.4 p.r.n. - Ordered echo - Consulted Cardiology # Chronic COPD - DuoNeb with albuterol and ipratropium q.4 p.r.n. # Erythema and edema around colostomy wound - Wound care daily - Zinc oxide paste around the skin of the stoma. # Hypokalemia - Replenished - Monitor BMP # Hypomagnesemia - Replenished - Monitor magnesium level # CKD stage 3 - Strict I&O - Avoid nephrotoxic medication - Ordered urine sodium, protein and urine creatinine # Type 2 diabetes mellitus, hemoglobin A1c - mild sliding scale of insulin # History of major depressive disorder - Continue home meds # PUD prophylaxis - Protonix 40 mg p.o. daily Goal of care discussed with the patient for more than 20 minutes full code Plan of treatment discussed with Dr. Aly. Plan discussed with: Patient, Other Date of Service: Nov 15, 2024 Billing Provider: GRISELDA ALY MD Common Visit Codes: [id number] INP/OBS CARE (HIGH) KATHY ELIAS RESIDENT Nov 15, 2024 02:01 GRISELDA ALY MD Nov 15, 2024 09:29
--- NOTE | 2024-11-15 02:02 | ECG ---
[facility] Test Date: 2024-11-14 Test Time: 23:35:31 Pat Name: ALIREZA WOODS Department: ED Room: [address] [place] [address] Gender: F Paying Teller: JANINE : 1965 Requested By: MODESTO MCMILLAN Order Number: [id number] Reading MD: Ant Kingston Measurements Intervals [place] Rate: 91 P: 40 CO: 132 QRS: 10 QRSD: 81 T: 22 QT: 359 QTc: 442 Interpretive Statements Sinus rhythm Low voltage, precordial leads Abnormal R-wave progression, early transition Electronically Signed On 11-17-2024 10:24:49 PST by Ant Kingston Please click the below link to view image of tracing.
[2024-11-15] MEDS ORDERED: POTASSIUM CHL 20 Meq TABLET PO ONE (02:15)
[2024-11-15] MEDS ORDERED: DEXTROSE (50%) 50ML SYRG IV PRN (03:00)
[2024-11-15] MEDS: POTASSIUM CHL 20 Meq TABLET PO ONE (03:57)
[2024-11-15] MEDS: HYDROcodone-ACET 10/325MG TAB PO PRN (03:58)
[2024-11-15] MEDS ORDERED: ALBUTEROL SULF 2.5 MG/0.5ML(0.5%) NEB SOLN NEB PRN (06:00)
[2024-11-15] MEDS ORDERED: HYDROcodone-ACET 5/325MG TAB PO ONE ×2 (06:00)
[2024-11-15] MEDS ORDERED: HYDROcodone-ACET 10/325MG TAB PO SCH (06:00)
[2024-11-15] MEDS ORDERED: IPRATROPIUM BROM 0.5 MG/2.5ML INH SOL NEB PRN (06:00)
[2024-11-15] MEDS: SODIUM CHLOR 0.9% PF (SALINE LOCK) 10ML VIAL/SYR IV SCH (06:07)
[2024-11-15] MEDS: InsuLIN REG 1unit/0.01ml Soln (100units/ml) SC SCH (06:47)
[2024-11-15] MEDS: ACCU-CHEK COMFORT CURVE STRIP VI SCH (06:48)
[2024-11-15 06:52] LABS: Cholesterol 114 mg/dL (< 200); LDL Cholesterol 48 mg/dL (< 100)
[2024-11-15 06:53] LABS: HDL Cholesterol 51 mg/dL (40-59)
[2024-11-15 06:54] LABS: Triglycerides 166 mg/dL (< 150)
[2024-11-15] MEDS: MAGNESIUM SULFATE 1GM/100ML 100 ML IV SCH (09:05)
[2024-11-15] MEDS: DESITIN (ZINC OXIDE 40%) OINT 28G TUBE TOP SCH (10:00)
[2024-11-15] MEDS: MAGNESIUM OXIDE 400 MG TAB PO SCH (10:00)
[2024-11-15] MEDS ORDERED: VANCOMYCIN PER PHARMACY 0 MG IV SCH (10:00)
[2024-11-15] MEDS ORDERED: metroNIDAZOLE 500MG/100ML 100 ML IV ONE (10:00)
[2024-11-15] MEDS ORDERED: FLUOXETINE HCL 40 MG PO SCH (10:00)
[2024-11-15] MEDS ORDERED: MAGNESIUM OXIDE 400 MG TAB PO SCH (10:00)
[2024-11-15] MEDS: ERGOCALCIFEROL 50,000 UNIT(1.25MG) CAP PO SCH (10:15)
[2024-11-15] MEDS: predniSONE 20 MG TAB PO SCH (10:15)
[2024-11-15] MEDS: ALBUTEROL SULF 2.5 MG/0.5ML(0.5%) NEB SOLN NEB SCH (10:37)
[2024-11-15] MEDS: IPRATROPIUM BROM 0.5 MG/2.5ML INH SOL NEB SCH (10:38)
[2024-11-15 10:49] LABS: Alanine Aminotransferase 38 U/L (7-40); Potassium 3.7 mmol/L (3.5-5.1)
[2024-11-15 10:50] LABS: Albumin 3.5 g/dL (3.2-4.8); Anion Gap 12 (5-15); Aspartate Aminotransferase 35 U/L (13-40); BUN/Creatinine Ratio 14.3 (10.0-20.0); Bilirubin, Total 0.3 mg/dL (0.2-1.0); Blood Urea Nitrogen 16 mg/dL (9-23); Sodium 140 mmol/L (136-145)
[2024-11-15 10:52] LABS: Basophils # (auto) 0 10 ^3/uL (0-0.2); Basophils % (auto) 0.3 % (0.0-2.0); Eosinophils # (auto) 0.2 10 ^3/uL (0-0.8); Eosinophils % (auto) 3.8 % (0.0-7.0); Hemoglobin 11.9 g/dL (12.2-16.2); Lymphocytes # (auto) 0.6 10 ^3/uL (0.4-5.4); Lymphocytes % (auto) 10.5 % (10.0-50.0); Mean Corpuscular Hemoglobin 31.9 pg (28.0-32.0); Mean Corpuscular Hgb Conc. 32.9 g/dL (32.0-36.0); Mean Corpuscular Volume 96.8 fL (80.0-100.0); Monocytes # (auto) 0.5 10 ^3/uL (0-1.3); Neutrophils # (auto) 4.2 10 ^3/uL (1.6-8.6); Neutrophils % (auto) 76.4 % (37.0-80.0); Nucleated Red Blood Cells % 0.2 %; Platelet Count (auto) 126 10^3/uL (140-450); Red Blood Cells 3.72 10^6/uL (4.0-5.20); Red Cell Distribution Width 13.1 % (11.8-14.3); White Blood Cell 5.5 10^3/uL (4.4-10.8)
[2024-11-15] MEDS ORDERED: metroNIDAZOLE 500MG/100ML 100 ML IV SCH (11:00)
[2024-11-15] MEDS ORDERED: VANCOMYCIN 1.5GM/300ML 300 ML IV SCH (11:00)
[2024-11-15 11:06] LABS: Alkaline Phosphatase 138 U/L (46-116); Carbon Dioxide 15 mmol/L (20-31); Chloride 113 mmol/L (98-107); Glucose 134 mg/dL (74-106)
[2024-11-15] MEDS: PANTOPRAZOLE 40 MG TAB PO SCH (11:38)
[2024-11-15] MEDS ORDERED: DOXYCYCLINE 100MG/250ML 250 ML IV SCH (11:45)
[2024-11-15] MEDS: ASPirin-EC 81 mg tab PO SCH (11:49)
[2024-11-15] MEDS: FLUoxetine HCL 20 MG CAP PO SCH (11:49)
[2024-11-15] MEDS: CEFEPIME 1GM/ 50ML 50 ML IV ONE (12:28)
--- NOTE | 2024-11-15 12:53 | DVHINCON2 ---
Date of service: Nov 15, 2024 History of Present Illness 59-year-old female with a history of multiple medical problems including status post colectomy with colostomy two years ago admitted secondary to chest pain. She also has been complaining of pain at the colostomy. Past Medical History CHF. COPD on home oxygen. CKD stage 3. Type 2 diabetes. Depression. History of mesenteric thrombosis requiring colectomy. Past Surgical History Colectomy as mentioned Family History: Blood clots Cancer G8 MOTHER Drug abuse G8 MOTHER G8 FATHER Family history: Diabetes mellitus G8 MOTHER Family history: Hypertension G8 MOTHER Family History Noncontributory Social History Heavy smoking history. No alcohol or IV drug use. Allergies: Coded Allergies: Levofloxacin (Verified Allergy, Severe, 11/04/15) Penicillins (Verified Allergy, Unknown, 10/01/21) Home Meds Active Scripts Azithromycin (Azithromycin) 500 Mg Tab, 1 TAB PO DAILY, #7 TAB Prov:ADELINE CIFUENTES MD 11/17/22 Nitrofurantoin Monohydrate Mac (Macrobid) 100 Mg Cap, 100 MG PO BID for 7 Days, #14 CAP Prov:JUAN A CORRALES MD 07/01/22 Psyllium (Metamucil Fiber) 51.7 % Griffin, 51.7 % PO BID for 30 Days, #60 PACK 2 Refills Prov:JUAN A CORRALES MD 07/01/22 Prednisone (Prednisone) 20 Mg Tab, 2 TAB PO DAILY for 2 Days, #4 TAB Prov:JAROCHO FINCH MD 05/29/22 Albuterol Sulfate (VENTOLIN MDI) 90 Mcg Ih, 90 MCG IN Q6HP PRN for 30 Days, #1 INH Prov:JAROCHO FINCH MD 05/29/22 Reported Medications Gabapentin (Gabapentin) 300 Mg Cap, 300 MG PO TID for 30 Days, MG 11/15/22 Furosemide (Lasix) 20 Mg Tb, 1 TAB PO BID, #90 TAB 1 Refill 11/15/22 Zolpidem Tartrate (Ambien) 10 Mg Tab, 1 TAB PO QPM, #30 TAB 5 Refills 11/15/22 Aspirin (Aspirin) 325 Mg Tab, 325 MG PO DAILY for 30 Days, MG 11/15/22 Quetiapine Fumerate (Seroquel) 50 Mg Tab, 50 MG PO for 30 Days, MG 11/15/22 Trazodone HCl (Trazodone Hydrochloride) 50 Mg Tab, 50 MG PO HS, TAB 05/27/22 Pantoprazole Sodium Sesquihydr (Protonix) 40 Mg Tab, 40 MG PO DAILY, #30 TAB 05/26/22 Aripiprazole (Abilify) 20 Mg Tab, 30 MG PO DAILY, TAB 05/26/22 Trazodone HCl (Trazodone Hydrochloride) 50 Mg Tab, 50 MG PO HS, TAB 05/26/22 Lorazepam (Lorazepam) 1 Mg Tab, 1 TAB PO TID, #90 TAB 05/26/22 Furosemide (Furosemide) 20 Mg Tab, 20 MG PO DAILY for 30 Days, MG 05/26/22 Lisinopril (Lisinopril) 10 Mg Tab, 10 MG PO DAILY for 30 Days, MG 05/26/22 Fluoxetine HCl (Pmdd) (Fluoxetine HCl) 20 Mg Tab, 40 MG PO DAILY, TAB 05/26/22 Oxycodone W/ Acetaminophen (Percocet 5/325MG) 1 Tab Tb, 1 TAB PO TID PRN for PAIN SCALE 1 THRU 6, #90 TAB 05/26/22 Zolpidem Tartrate (Zolpidem Tartrate) 5 Mg Tab, 1 TAB PO QPM, #30 TAB 2 Refills 05/25/22 Quetiapine Fumerate (Seroquel Xr) 50 Mg Tab, 100 MG PO HS for 30 Days, MG 05/25/22 Insulin Glargine (Lantus) 100 Unit/Ml Inj, 60 UNIT SC HS, INJ 05/25/22 Fluoxetine Hcl (Pmdd) (Fluoxetine) 20 Mg Cap, 40 MG PO HS, CAP 11/05/15 Quetiapine Fumarate (SEROquel TABLET) 100 Mg Tb, 80 MG PO HS 11/05/15 Morphine Sulfate (Morphine Sulfate) 30 Mg Tab, 30 MG PO BID PRN for MODERATE PAIN, TAB 11/05/15 Diazepam (VALIUM) 2 Mg Tab, PO DAILY, #30 TAB 11/05/15 Zolpidem Tartrate (Ambien) 10 Mg Tab, 1 TAB PO QPM, #30 TAB 5 Refills 11/05/15 Current Medications Current Medications Medications (Trade) Dose Ordered Sig/Santosh Route PRN Reason Start Time Stop Time Status Last Admin Sodium Chloride (Saline Lock Ns) 10 ml Q8HR IV 11/15/24 06:00 11/15/24 06:07 Ondansetron HCl (Zofran) 4 mg Q4HP PRN IV NAUSEA / VOMITING 11/15/24 02:00 Acetaminophen (Tylenol Tablet) 650 mg Q6HP PRN PO PAIN SCALE 1-3 OR TEMP>100.4 11/15/24 02:00 Nitroglycerin (Ntrostat Sublingual) 0.4 mg Q5MINP PRN SL FOR CHEST PAIN 11/15/24 02:00 Morphine Sulfate 2 mg Q30M PRN IV FOR CHEST PAIN 11/15/24 02:00 Aspirin (Ecotrin Enteric Coated Tablet) 81 mg DAILY PO 11/15/24 10:00 11/15/24 11:49 Atorvastatin Calcium (Lipitor) 40 mg HS PO 11/15/24 22:00 11/15/24 02:12 DC Magnesium Oxide (Mag-Ox Tablet) 800 mg BID PO 11/15/24 10:00 11/15/24 02:12 DC Pantoprazole Sodium (Protonix Tablet) 40 mg DAILY PO 11/15/24 10:00 11/15/24 11:38 Quetiapine Fumarate (SEROquel TABLET) 80 mg HS PO 11/15/24 22:00 11/15/24 09:24 DC Patient Own Medication 40 mg DAILY PO 11/15/24 10:00 11/15/24 02:17 DC Fluoxetine HCl (PROzac CAPSULE) 40 mg DAILY PO 11/15/24 10:00 11/15/24 11:49 Diagnostic Test (Pha) (Accu-Chek Comfort Curve T) 1 strip ACHS 11/15/24 07:00 11/15/24 11:38 Insulin Human Regular (InsuLIN R) ACHS SC 11/15/24 07:00 11/15/24 11:51 Dextrose 50 ml UD PRN IV Blood Sugar LESS THAN 60 11/15/24 03:00 Atorvastatin Calcium (Lipitor) 40 mg HS PO 11/15/24 22:00 Magnesium Oxide (Mag-Ox Tablet) 800 mg BID PO 11/15/24 10:00 Albuterol (Ventolin Medneb) 2.5 mg Q4HPRN PRN NEB SHORTNESS OF BREATH 11/15/24 06:00 11/15/24 09:24 DC Ipratropium [place] (Atrovent Medneb) 0.5 mg Q4HPRN PRN NEB SHORTNESS OF BREATH 11/15/24 06:00 11/15/24 09:24 DC Acetaminophen/ Hydrocodone Bitart ([place] 10/325MG Tab) 1 tab Q4HPRN PO 11/15/24 06:00 11/15/24 03:51 DC Acetaminophen/ Hydrocodone Bitart ([place] 10/325MG Tab) 1 tab Q4HP PRN PO MODERATE PAIN (4-6 PAIN SCALE) 11/15/24 04:00 11/15/24 09:41 Zinc Oxide (Desitin) 1 applic BID TOP 11/15/24 10:00 11/15/24 10:00 Magnesium Sulfate/ Dextrose 100 ml @ 100 mls/hr Q1HR IV 11/15/24 08:00 11/15/24 10:59 DC 11/15/24 11:16 Albuterol (Ventolin Medneb) 2.5 mg Q4HR NEB 11/15/24 10:00 11/15/24 10:37 Ipratropium [place] (Atrovent Medneb) 0.5 mg Q4HR NEB 11/15/24 10:00 11/15/24 10:38 Gabapentin (Neurontin Capsule) 300 mg TID PO 11/15/24 14:00 Quetiapine Fumarate (SEROquel TABLET) 800 mg HS PO 11/15/24 22:00 Trazodone HCl (Desyrel) 50 mg HS PO 11/15/24 22:00 Cefepime HCl 50 ml @ 12.5 mls/hr Q8H IV 11/15/24 18:00 Vancomycin HCl 0 ml @ 0 mls/hr UD IV 11/15/24 10:00 11/15/24 11:45 DC Metronidazole 100 ml @ 100 mls/hr Q8H IV 11/15/24 11:00 Ergocalciferol (Vitamin D 50,000 Unit) 50,000 unit Q7D PO 11/15/24 10:00 11/15/24 10:15 Prednisone 40 mg DAILY PO 11/15/24 10:00 11/20/24 09:59 11/15/24 10:15 Vancomycin HCl 300 ml @ 200 mls/hr DAILY@1100 IV 11/15/24 11:00 11/15/24 11:39 DC Doxycycline Hyclate 250 ml @ 125 mls/hr Q12H IV 11/15/24 11:45 Vital Signs Vital Signs Date Time Temp Pulse Resp B/P (MAP) Pulse Ox O2 Delivery O2 Flow Rate FiO2 11/15/24 10:48 77 22 100 11/15/24 10:00 103/61 (75) 11/15/24 08:00 Room Air* 0 21 11/15/24 03:48 98.0 98.0 Physical Exam GEN: Age-appropriate female in no acute distress. Alert. HEENT: Normocephalic atraumatic. Moist mucous membranes. Anicteric sclerae. CV: RRR Respiratory: Coarse breath sounds ABD: Obese abdomen with the colostomy that is functioning. There is erythema and mild skin excoriation at the betsy ostomy site without purulent drainage or fluctuance. Labs/Diagnostic Data Labs Test 11/15/24 11:41 11/15/24 10:21 11/15/24 05:31 11/15/24 02:15 Range/Units POC Glucose 266 H 70-106 mg/dl White Blood Count 5.5 4.4-10.8 10^3/uL Red Blood Count 3.72 L 4.0-5.20 10^6/uL Hemoglobin 11.9 L 12.2-16.2 g/dL Hematocrit 36.0 36.0-46.0 % Mean Corpuscular Volume 96.8 80.0-100.0 fL Mean Corpuscular Hemoglobin 31.9 28.0-32.0 pg Mean Corpuscular Hemoglobin Concent 32.9 32.0-36.0 g/dL Red Cell Distribution Width 13.1 11.8-14.3 % Platelet Count 126 L 140-450 10^3/uL Mean Platelet Volume 9.3 6.9-10.8 fL Neutrophils (%) (Auto) 76.4 37.0-80.0 % Lymphocytes (%) (Auto) 10.5 10.0-50.0 % Monocytes (%) (Auto) 9.0 0.0-12.0 % Eosinophils (%) (Auto) 3.8 0.0-7.0 % Basophils (%) (Auto) 0.3 0.0-2.0 % Neutrophils # (Auto) 4.2 1.6-8.6 10 ^3/uL Lymphocytes # (Auto) 0.6 0.4-5.4 10 ^3/uL Monocytes # (Auto) 0.5 0-1.3 10 ^3/uL Eosinophils # (Auto) 0.2 0-0.8 10 ^3/uL Basophils # (Auto) 0 0-0.2 10 ^3/uL Nucleated Red Blood Cells 0.2 % Sodium Level 140 136-145 mmol/L Potassium Level 3.7 3.5-5.1 mmol/L Chloride Level 113 H 98-107 mmol/L Carbon Dioxide Level 15 L 20-31 mmol/L Anion Gap 12 5-15 Blood Urea Nitrogen 16 9-23 mg/dL Creatinine 1.12 H 0.550-1.02 mg/dL Glomerular Filtration Rate Calc 56 >90 mL/min BUN/Creatinine Ratio 14.3 10.0-20.0 Serum Glucose 134 H 74-106 mg/dL Calcium Level 9.0 8.7-10.4 mg/dL Total Bilirubin 0.3 0.2-1.0 mg/dL Aspartate Amino Transferase (AST) 35 13-40 U/L Alanine Aminotransferase (ALT) 38 7-40 U/L Alkaline Phosphatase 138 H 46-116 U/L Total Protein 6.0 5.7-8.2 g/dL Albumin 3.5 3.2-4.8 g/dL Triglycerides Level 166 H < 150 mg/dL Cholesterol Level 114 < 200 mg/dL LDL Cholesterol 48 < 100 mg/dL HDL Cholesterol 51 40-59 mg/dL Lipase 50 12-53 U/L Vitamin D 25-Hydroxy 9.3 L 30.0-100 ng/mL Thyroid Stimulating Hormone (TSH) 2.83 0.55-4.78 uIU/mL Test 11/15/24 00:59 11/15/24 00:45 11/14/24 23:59 Range/Units Troponin I High Sensitivity 3 L </=34 ng/L Prothrombin Time 10.3 9.3-11.8 sec Prothrombin Time INR 0.97 0.9-1.15 Activated Partial Thromboplast Time 21.1 L 24.5-34.5 SEC Hemoglobin A1c 6.5 H <5.7 % A1C Magnesium Level 1.1 L 1.6-2.6 mg/dL B-Type Natriuretic Peptide 22.33 0-100 pg/mL Assessment 1. Cellulitis at the colostomy site without obvious abscess Plan/Recommendation 1. Local wound care at colostomy site. Also would recommend colostomy holiday in attempt to limit the irritation at the site. Also recommend a wound care nurse for evaluation. No indication for acute surgical intervention at this time. Plan discussed with: Patient HANNAH BREWER MD Nov 15, 2024 12:53
[2024-11-15] MEDS: REGADENOSON 0.4 MG/5 ML SYRG IV ONE ×2 (14:12)
--- NOTE | 2024-11-15 14:34 | DVHSR ---
APPROVED REPORT EXAM: LIMITED Two-dimensional and M-mode echocardiogram with Doppler and color Doppler. Blood Pressure: 102/56 mmHg INDICATION Chest Pain RISK FACTORS Height: 5' 7", Weight: 180 DIMENSIONS LVDd4.1 (3.8-5.7cm)LA (2D)3.6 (1.9-4.0cm)Aortic Root3.4 (2.0-3.7cm) LVDs3.0 (2.5-4.0cm)LA (MM) (1.9-4.0cm)Aortic Cusp Exc1.5 (1.5-2.0cm) EF (%) 53.0 (55-70%)Rt. Atrium3.4 (1.9-4.0cm)Asc. Aorta cm IVSd0.8 (0.7-1.1cm)RV (D) (1.8-2.4cm) PWd0.9 (0.7-1.1cm) Mitral Valve MitralMitral Stenosis E wave0.90m/sMV Mean GR.mmHg A wave0.70m/sMV Peak GR.mmHg E/A ratio1.32D MVAcm2 Aortic Valve Aortic ValveAortic Stenosis V10.80m/Amanda Mean GR.3mmHg V21.20m/Amanda Peak GR.7mmHg LVOT Diameter2.0 (1.8-2.4cm)Doppler AVA2.09cm2 Other Information Quality : Technically LimitedRhythm : Technically limited study due to body habitus. Conclusion Normal left ventricular size and dimension. Normal left ventricular systolic function estimated ejec tion fraction 55%. There is a grade 1 diastolic dysfunction. Normal right ventricular size and dimension. Normal right ventricular systolic function. Normal biatrial size and dimension. Normal aortic valve structure and function. Normal mitral valve structure and function. Normal tricuspid structure and function. The pulmonary valve is grossly normal. No pericardial effusion.
--- NOTE | 2024-11-15 15:11 | DVHCONRES ---
Date Seen: Nov 15, 2024 Resident Creating Document: GOMEZ SANFORD RESIDENT Referring Physician Elizabeth Cabello History of Present Illness This is a 59-year-old female with past medical history significant for CVA, CHF, diabetes, CKD stage 3, acute ischemic bowel s/p hemicolectomy with colostomy bag (01/2022), COPD with 150 pack years and hypotension presented to the ED with a complaints of abdominal pains and chest pain associated with shortness of breath that started over the weekend about ( 4 days ago). According to the patient the chest pain started 4 days ago. Pain felt like pressure sitting on her chest, worse with inspiration and coughing,radiating to the back and rated 9/10. There are no relieving factors. She denies any history of trauma, hypercoagulable state, but admits to GERD and recent upper respiratory viral infection. Patient said she took Aspirin and nitroglycerin without much improvement. She denied any diaphoresis, dizziness, or left arm pain. Of note, patient has COPD and at baseline she uses home oxygen 2L Pr.n. She has a colostomy for last 2 years and recently started experiencing pain and erythema around stomal wound around the skin of the stoma prompting a visit to the ED. Initial lab work in the ED showed Troponin: < 3 (x2) and EKG was unremarkable. The patient is admitted for further evaluation and management of chest pain. Past Medical History PMhx: CVA, CHF, HTN, COPD,hyperipidemia,Ischemic colitis, nonambulatory, lower back pain Psych: Depression Renal/: Chronic renal insuff, Chronic renal failure Past Surgical History Hemicoloectomy, , hysterectomy and right elbow surgery Family History: Blood clots Cancer G8 MOTHER Drug abuse G8 MOTHER G8 FATHER Family history: Diabetes mellitus G8 MOTHER Family history: Hypertension G8 MOTHER Family History Family history is significant for cardiac disease Social History lives in a facility Allergies: Coded Allergies: Levofloxacin (Verified Allergy, Severe, 11/04/15) Penicillins (Verified Allergy, Unknown, 10/01/21) Home Meds Active Scripts Azithromycin (Azithromycin) 500 Mg Tab, 1 TAB PO DAILY, #7 TAB Prov:ADELINE CIFUENTES MD 11/17/22 Nitrofurantoin Monohydrate Mac (Macrobid) 100 Mg Cap, 100 MG PO BID for 7 Days, #14 CAP Prov:JUAN A CORRALES MD 07/01/22 Psyllium (Metamucil Fiber) 51.7 % Griffin, 51.7 % PO BID for 30 Days, #60 PACK 2 Refills Prov:JUAN A CORRALES MD 07/01/22 Prednisone (Prednisone) 20 Mg Tab, 2 TAB PO DAILY for 2 Days, #4 TAB Prov:JAROCHO FINCH MD 05/29/22 Albuterol Sulfate (VENTOLIN MDI) 90 Mcg Ih, 90 MCG IN Q6HP PRN for 30 Days, #1 INH Prov:JAROCHO FINCH MD 05/29/22 Reported Medications Gabapentin (Gabapentin) 300 Mg Cap, 300 MG PO TID for 30 Days, MG 11/15/22 Furosemide (Lasix) 20 Mg Tb, 1 TAB PO BID, #90 TAB 1 Refill 11/15/22 Zolpidem Tartrate (Ambien) 10 Mg Tab, 1 TAB PO QPM, #30 TAB 5 Refills 11/15/22 Aspirin (Aspirin) 325 Mg Tab, 325 MG PO DAILY for 30 Days, MG 11/15/22 Quetiapine Fumerate (Seroquel) 50 Mg Tab, 50 MG PO for 30 Days, MG 11/15/22 Trazodone HCl (Trazodone Hydrochloride) 50 Mg Tab, 50 MG PO HS, TAB 05/27/22 Pantoprazole Sodium Sesquihydr (Protonix) 40 Mg Tab, 40 MG PO DAILY, #30 TAB 05/26/22 Aripiprazole (Abilify) 20 Mg Tab, 30 MG PO DAILY, TAB 05/26/22 Trazodone HCl (Trazodone Hydrochloride) 50 Mg Tab, 50 MG PO HS, TAB 05/26/22 Lorazepam (Lorazepam) 1 Mg Tab, 1 TAB PO TID, #90 TAB 05/26/22 Furosemide (Furosemide) 20 Mg Tab, 20 MG PO DAILY for 30 Days, MG 05/26/22 Lisinopril (Lisinopril) 10 Mg Tab, 10 MG PO DAILY for 30 Days, MG 05/26/22 Fluoxetine HCl (Pmdd) (Fluoxetine HCl) 20 Mg Tab, 40 MG PO DAILY, TAB 05/26/22 Oxycodone W/ Acetaminophen (Percocet 5/325MG) 1 Tab Tb, 1 TAB PO TID PRN for PAIN SCALE 1 THRU 6, #90 TAB 05/26/22 Zolpidem Tartrate (Zolpidem Tartrate) 5 Mg Tab, 1 TAB PO QPM, #30 TAB 2 Refills 05/25/22 Quetiapine Fumerate (Seroquel Xr) 50 Mg Tab, 100 MG PO HS for 30 Days, MG 05/25/22 Insulin Glargine (Lantus) 100 Unit/Ml Inj, 60 UNIT SC HS, INJ 05/25/22 Fluoxetine Hcl (Pmdd) (Fluoxetine) 20 Mg Cap, 40 MG PO HS, CAP 11/05/15 Quetiapine Fumarate (SEROquel TABLET) 100 Mg Tb, 80 MG PO HS 11/05/15 Morphine Sulfate (Morphine Sulfate) 30 Mg Tab, 30 MG PO BID PRN for MODERATE PAIN, TAB 11/05/15 Diazepam (VALIUM) 2 Mg Tab, PO DAILY, #30 TAB 11/05/15 Zolpidem Tartrate (Ambien) 10 Mg Tab, 1 TAB PO QPM, #30 TAB 5 Refills 11/05/15 Current Medications Current Medications Medications (Trade) Dose Ordered Sig/Santosh Route PRN Reason Start Time Stop Time Status Last Admin Sodium Chloride (Saline Lock Ns) 10 ml Q8HR IV 11/15/24 06:00 11/15/24 06:07 Ondansetron HCl (Zofran) 4 mg Q4HP PRN IV NAUSEA / VOMITING 11/15/24 02:00 Acetaminophen (Tylenol Tablet) 650 mg Q6HP PRN PO PAIN SCALE 1-3 OR TEMP>100.4 11/15/24 02:00 Nitroglycerin (Ntrostat Sublingual) 0.4 mg Q5MINP PRN SL FOR CHEST PAIN 11/15/24 02:00 Morphine Sulfate 2 mg Q30M PRN IV FOR CHEST PAIN 11/15/24 02:00 Aspirin (Ecotrin Enteric Coated Tablet) 81 mg DAILY PO 11/15/24 10:00 11/15/24 11:49 Atorvastatin Calcium (Lipitor) 40 mg HS PO 11/15/24 22:00 11/15/24 02:12 DC Magnesium Oxide (Mag-Ox Tablet) 800 mg BID PO 11/15/24 10:00 11/15/24 02:12 DC Pantoprazole Sodium (Protonix Tablet) 40 mg DAILY PO 11/15/24 10:00 11/15/24 11:38 Quetiapine Fumarate (SEROquel TABLET) 80 mg HS PO 11/15/24 22:00 11/15/24 09:24 DC Patient Own Medication 40 mg DAILY PO 11/15/24 10:00 11/15/24 02:17 DC Fluoxetine HCl (PROzac CAPSULE) 40 mg DAILY PO 11/15/24 10:00 11/15/24 11:49 Diagnostic Test (Pha) (Accu-Chek Comfort Curve T) 1 strip ACHS 11/15/24 07:00 11/15/24 11:38 Insulin Human Regular (InsuLIN R) ACHS SC 11/15/24 07:00 11/15/24 11:51 Dextrose 50 ml UD PRN IV Blood Sugar LESS THAN 60 11/15/24 03:00 Atorvastatin Calcium (Lipitor) 40 mg HS PO 11/15/24 22:00 Magnesium Oxide (Mag-Ox Tablet) 800 mg BID PO 11/15/24 10:00 Albuterol (Ventolin Medneb) 2.5 mg Q4HPRN PRN NEB SHORTNESS OF BREATH 11/15/24 06:00 11/15/24 09:24 DC Ipratropium [place] (Atrovent Medneb) 0.5 mg Q4HPRN PRN NEB SHORTNESS OF BREATH 11/15/24 06:00 11/15/24 09:24 DC Acetaminophen/ Hydrocodone Bitart ([place] 10/325MG Tab) 1 tab Q4HPRN PO 11/15/24 06:00 11/15/24 03:51 DC Acetaminophen/ Hydrocodone Bitart ([place] 10/325MG Tab) 1 tab Q4HP PRN PO MODERATE PAIN (4-6 PAIN SCALE) 11/15/24 04:00 11/15/24 09:41 Zinc Oxide (Desitin) 1 applic BID TOP 11/15/24 10:00 11/15/24 10:00 Magnesium Sulfate/ Dextrose 100 ml @ 100 mls/hr Q1HR IV 11/15/24 08:00 11/15/24 10:59 DC 11/15/24 11:16 Albuterol (Ventolin Medneb) 2.5 mg Q4HR NEB 11/15/24 10:00 11/15/24 14:41 Ipratropium [place] (Atrovent Medneb) 0.5 mg Q4HR NEB 11/15/24 10:00 11/15/24 14:41 Gabapentin (Neurontin Capsule) 300 mg TID PO 11/15/24 14:00 Quetiapine Fumarate (SEROquel TABLET) 800 mg HS PO 11/15/24 22:00 Trazodone HCl (Desyrel) 50 mg HS PO 11/15/24 22:00 Cefepime HCl 50 ml @ 12.5 mls/hr Q8H IV 11/15/24 18:00 Vancomycin HCl 0 ml @ 0 mls/hr UD IV 11/15/24 10:00 11/15/24 11:45 DC Metronidazole 100 ml @ 100 mls/hr Q8H IV 11/15/24 11:00 Ergocalciferol (Vitamin D 50,000 Unit) 50,000 unit Q7D PO 11/15/24 10:00 11/15/24 10:15 Prednisone 40 mg DAILY PO 11/15/24 10:00 11/15/24 14:32 DC 11/15/24 10:15 Vancomycin HCl 300 ml @ 200 mls/hr DAILY@1100 IV 11/15/24 11:00 11/15/24 11:39 DC Doxycycline Hyclate 250 ml @ 125 mls/hr Q12H IV 11/15/24 11:45 Methylprednisolone Sodium Succinate (Solu Medrol) 40 mg DAILY IV 11/16/24 10:00 11/19/24 23:55 UNV Review of Systems Constitutional: Denies fever no chills no feeling of malaise HEENT: Denies headache, ear pain, ear discharges, conjunctivitis, nasal discha rge throat pain Cardiovascular: reproducible chest pain, worse with deep inspiration and movement; Denies palpitation, orthopnea, PND, or pedal edema Respiratory: shortness of breath, cough, nOsputum production, hemoptysis, GI: abdominal pain, inflammation around the stoma . : Denies frequency, urgency, hematuria, Endocrine: Denies unintentional weight gain or weight loss, feeling of hot flashes, Nick: Denies easy bruising, bleeding disorders, epistaxis Musculoskeletal: Denies joint pains, muscle aches Psych: No evidence of depression, moe, suicidal ideation Vital Signs Vital Signs Date Time Temp Pulse Resp B/P (MAP) Pulse Ox O2 Delivery O2 Flow Rate FiO2 11/15/24 14:27 107 18 95 11/15/24 12:00 98/57 (71) 11/15/24 08:00 Room Air* 0 21 11/15/24 03:48 98.0 98.0 Physical Exam General examination- Mild acute distress from the abdominal pain HEENT: PEERLA, no acute nasal discharge Chest: S1-S2 audible, rate and rhythm regular, no murmur, left precordium tender with palpation Lung: CTAB, no wheeze or rhonchi Abdomen: Nondistended, BS+, colostomy bag in the right lower quadrant, erythematous and beefy tenderness, no organomegaly Musculoskeletal: nonambulatory, wheelchair bound Extremity: upper extremity: No abnormality noted, Neurological: cranial nerves intact, no acute dysarthria or dysphagia Psychiatry-- Normal mood and affect Skin- no acute rash or purpura Labs/Diagnostic Data Labs Test 11/15/24 11:41 11/15/24 10:21 11/15/24 05:31 11/15/24 02:15 Range/Units POC Glucose 266 H 70-106 mg/dl White Blood Count 5.5 4.4-10.8 10^3/uL Red Blood Count 3.72 L 4.0-5.20 10^6/uL Hemoglobin 11.9 L 12.2-16.2 g/dL Hematocrit 36.0 36.0-46.0 % Mean Corpuscular Volume 96.8 80.0-100.0 fL Mean Corpuscular Hemoglobin 31.9 28.0-32.0 pg Mean Corpuscular Hemoglobin Concent 32.9 32.0-36.0 g/dL Red Cell Distribution Width 13.1 11.8-14.3 % Platelet Count 126 L 140-450 10^3/uL Mean Platelet Volume 9.3 6.9-10.8 fL Neutrophils (%) (Auto) 76.4 37.0-80.0 % Lymphocytes (%) (Auto) 10.5 10.0-50.0 % Monocytes (%) (Auto) 9.0 0.0-12.0 % Eosinophils (%) (Auto) 3.8 0.0-7.0 % Basophils (%) (Auto) 0.3 0.0-2.0 % Neutrophils # (Auto) 4.2 1.6-8.6 10 ^3/uL Lymphocytes # (Auto) 0.6 0.4-5.4 10 ^3/uL Monocytes # (Auto) 0.5 0-1.3 10 ^3/uL Eosinophils # (Auto) 0.2 0-0.8 10 ^3/uL Basophils # (Auto) 0 0-0.2 10 ^3/uL Nucleated Red Blood Cells 0.2 % Sodium Level 140 136-145 mmol/L Potassium Level 3.7 3.5-5.1 mmol/L Chloride Level 113 H 98-107 mmol/L Carbon Dioxide Level 15 L 20-31 mmol/L Anion Gap 12 5-15 Blood Urea Nitrogen 16 9-23 mg/dL Creatinine 1.12 H 0.550-1.02 mg/dL Glomerular Filtration Rate Calc 56 >90 mL/min BUN/Creatinine Ratio 14.3 10.0-20.0 Serum Glucose 134 H 74-106 mg/dL Calcium Level 9.0 8.7-10.4 mg/dL Total Bilirubin 0.3 0.2-1.0 mg/dL Aspartate Amino Transferase (AST) 35 13-40 U/L Alanine Aminotransferase (ALT) 38 7-40 U/L Alkaline Phosphatase 138 H 46-116 U/L C-Reactive Protein High Sensitivity 0.96 <1.0 mg/dL Total Protein 6.0 5.7-8.2 g/dL Albumin 3.5 3.2-4.8 g/dL Triglycerides Level 166 H < 150 mg/dL Cholesterol Level 114 < 200 mg/dL LDL Cholesterol 48 < 100 mg/dL HDL Cholesterol 51 40-59 mg/dL Lipase 50 12-53 U/L Vitamin D 25-Hydroxy 9.3 L 30.0-100 ng/mL Thyroid Stimulating Hormone (TSH) 2.83 0.55-4.78 uIU/mL Test 11/15/24 00:59 11/15/24 00:45 11/14/24 23:59 Range/Units Troponin I High Sensitivity 3 L </=34 ng/L Prothrombin Time 10.3 9.3-11.8 sec Prothrombin Time INR 0.97 0.9-1.15 Activated Partial Thromboplast Time 21.1 L 24.5-34.5 SEC Hemoglobin A1c 6.5 H <5.7 % A1C Magnesium Level 1.1 L 1.6-2.6 mg/dL B-Type Natriuretic Peptide 22.33 0-100 pg/mL Assessment Chest pain rule out ACS --> Heart score:4 --> History of ischemic colitis 01/2022 --> 150 pack years --> Diabetes mellitus --> Triglyceride 166 --> Troponin: 3 --> Echo 11/15/2024: Normal left ventricular systolic function estimated ejection fraction 55%. -->Plan: Nuclear stress test: Impression: Negative stress for ischemia, low risk study 11/15/2024 Diabetes melitus type II --> Hgb A1c: 6.5 --> Metformin Cellulitis at the colostomy site --> Antibiotics ( Cefepime and metronidazole) --> wound care: Local wound care at colostomy site. Also would recommend colostomy holiday in attempt to limit the irritation at the site. Also recommend a wound care nurse for evaluation. No indication for acute surgical intervention at this time --> Surgery following: COPD exacerbation --> Solumedrol 40 mg daily --> Doxycycline 100 mg bid --> Magnesium --> Breathing treatment q4hrs --> 150 pack years, cutting down on the amount of cigarette --> recommended [employer] visit outpatient for CT scan of the lungs to rule any nodules Chronic Kidney disease --> creatinine: 1.12 (baseline1.35, 10/2022) --> Monitor creatinine level closely Poor dentition --> Pending appointment with the dentist History of Hypotension --> Monitor blood pressure closely History of CVA --> No residual defect noted on examination Hyperlipidemia --> atorvastatin lower back pain Depression --> Continue home medication Critical time spent with the patient was more than 45 minutes. There is no further inpatient cardiac workup at this time. Please reconsult if needed Plan discussed with: Patient Visit Coding Cardiology RES Date of Service: Nov 15, 2024 Billing Provider: HANSEL PALMER MD Cardiology Common Codes: 11571-[id number] INP/OBS CARE (High) Cardiology Consultation Codes: [id number] CONSULT <45MIN GOMEZ [facility]FORD RESIDENT Nov 15, 2024 15:11
[2024-11-15] MEDS: GABAPENTIN 300 MG CAP PO SCH (15:12)
--- NOTE | 2024-11-15 15:37 | DVHSR ---
APPROVED REPORT Exam: Nuclear Stress Test BMI: 0 Stress Test Details HR Max Heart Rate (APMHR): 159.700643 bpm Target HR (85% APMHR): 135.073943 bpm BP ECG Stress ECG Conclusion Resting ECG shows normal sinus rhythm. At peak stress level no dynamic EKG changes was noted to sugg est ischemia. Resting images shows near homogeneous uptake of radioactive tracer throughout the myocardium without evidence of myocardial infarction. Stress images shows near homogeneous uptake of radioactive tracer throughout the myocardium without e vidence of myocardial ischemia. Well-preserved left ventricular systolic function 83%. Impression: Negative stress for ischemia, low risk study NM EXAM: Myocardial Perfusion REST/STRESS Imaging Protocol: Rest Tc-99m/Stress Tc-99m 1 day Resting Data Rest SPECT myocardial perfusion imaging was performed in supine position 60 minutes following the int ravenous injection of 13.5 mCi of Tc-99m Sestamibi. Time of rest injection: 1305 Time of rest imagin Administration Route: IV Administration Site: Right Arm Pharmacologic Stress Pharmacologic stress test was performed by injecting Regadenoson 0.4 mg IV push followed by the intra venous injection of 35 mCi of Tc-99m Sestamibi. Time of stress injection: 1412 Time of stress imagin Administration Route: IV Administration Site: Right Arm Gated Stress SPECT was performed 60 minutes after stress injection. The images were gated to evaluate regional wall motion and calculate left ventricular ejection fracti on. Stress only was performed in the Supine position. Nuclear Conclusion ECG Findings: negative for ischemia Clinical Findings: negative for ischemia Nuclear Findings: negative for ischemia Exercise Capacity: not assessed Left Ventricular Function: normal Risk Study: low Resting ECG shows normal sinus rhythm. At peak stress level no dynamic EKG changes was noted to sugg est ischemia. Resting images shows near homogeneous uptake of radioactive tracer throughout the myocardium without evidence of myocardial infarction. Stress images shows near homogeneous uptake of radioactive tracer throughout the myocardium without e vidence of myocardial ischemia. Well-preserved left ventricular systolic function 83%. Impression: Negative stress for ischemia, low risk study
[2024-11-15] MEDS: methylPREDNISolone SOD SUCC 40 MG/ML VL IV ONE (16:21)
[2024-11-15] MEDS: MORPHINE SULFATE INJ 2 MG/ml SYRG IV PRN ×2 (16:22→21:47)
[2024-11-15] MEDS: ONDANSETRON HCL 4 MG/2 ML VIAL IV PRN (16:32)
[2024-11-15] MEDS: metroNIDAZOLE 500MG/100ML 100 ML IV SCH (16:36)
[2024-11-15 16:45] LABS: COVID19 ANTIGEN SOFIA FIA NEGATIVE (NEGATIVE); Rapid Influenza A Negative (Negative); Rapid Influenza B Negative (Negative)
[2024-11-15] MEDS: DOXYCYCLINE 100MG/250ML 250 ML IV SCH (17:43)
[2024-11-15] MEDS: CEFEPIME 1GM/ 50ML 50 ML IV SCH (17:51)
[2024-11-15 18:15] LABS: Lactic Acid w/Reflex 4.1 mmol/L (0.4-2.0)
[2024-11-15 19:21] LABS: Erythrocyte Sedimentation Rate 28 mm/hr (0-20)
[2024-11-15 20:41] LABS: Urine Bacteria None Seen /hpf (None Seen); Urine WBC None Seen /hpf (0 - 5)
--- NOTE | 2024-11-15 20:59 | DVHPNRES ---
Progress Note Date Seen: Nov 15, 2024 Resident Creating Document: JESSICA GILES KECIA Has the PT tested + for MRSA If YES, has PT been informed?: Yes Medical Necessity Reason Pt with a Central, PICC or Fol: No Subjective Review of Systems This is a 59-year-old female with past medical history of CHF, COPD on home oxygen, CKD stage III type 2 diabetes mellitus, major depressive disorder, presented to the ED with a with chief complaint of chest pain and shortness of breath for last 2 days prior to this admission. According to the patient the chest pain started yesterday which was sharp in nature 08/08 and also felt like heaviness in the chest, localized in the central of the chest and radiate to the back, aggravated during deep breathing without any relieving factor and associated with shortness of breath and dry cough.The patient has COPD and she is on home oxygen about 2 L and use oxygen whenever needed. Patient also mention positive sick contact but denies dizziness, diaphoresis , paroxysmal nocturnal dyspnea, fever, malaise and recent traveling. She has a colostomy for last 2 years and recently she noticed pain, erythema and edema around the stomal wound and scattered rashes around the skin of the stoma. Initial EKG and troponin trends are unremarkable. The patient is admitted for further evaluation and management of chest pain. Cardiovascular: CHF, HTN, hyperipidemia Psych: Depression Renal/: Chronic renal insuff, Chronic renal failure Past Surgical History Colostomy, , hysterectomy and right elbow surgery Family History Family history is significant for cardiac disease Past Social History Used to smoke more than 2 packets per day for 50 yrs, cutting down to 5-10 cigarettes per day for last few months, nonalcoholic and smoked marijuana Today, 11/15, patient seen and examined at the bedside. Patient is complaining of mild abdominal pain, shortness of breath and cough with leakage around colostomy stump. Patient reports: No new complaints Changes from previous H/P or p: No Changes Objective vital signs Vital Sign Date Time Temp Pulse Resp B/P (MAP) Pulse Ox O2 Delivery O2 Flow Rate FiO2 11/15/24 18:59 92 18 100 11/15/24 18:51 Room Air* 0 21 11/15/24 18:45 100/52 (68) 11/15/24 03:48 98.0 98.0 medications Current Medications Medications Dose Ordered Sig/Santosh Route Start Time Stop Time Status Last Admin Dose Admin Sodium Chloride 10 ml Q8HR IV 11/15/24 06:00 11/15/24 15:03 10 ML Ondansetron HCl 4 mg Q4HP PRN IV 11/15/24 02:00 11/15/24 16:32 4 MG Acetaminophen 650 mg Q6HP PRN PO 11/15/24 02:00 Nitroglycerin 0.4 mg Q5MINP PRN SL 11/15/24 02:00 Morphine Sulfate 2 mg Q30M PRN IV 11/15/24 02:00 Aspirin 81 mg DAILY PO 11/15/24 10:00 11/15/24 11:49 81 MG Pantoprazole Sodium 40 mg DAILY PO 11/15/24 10:00 11/15/24 11:38 40 MG Fluoxetine HCl 40 mg DAILY PO 11/15/24 10:00 11/15/24 11:49 40 MG Diagnostic Test (Pha) 1 strip ACHS 11/15/24 07:00 11/15/24 17:16 1 STRIP Insulin Human Regular ACHS SC 11/15/24 07:00 11/15/24 17:19 6 UNITS Dextrose 50 ml UD PRN IV 11/15/24 03:00 Atorvastatin Calcium 40 mg HS PO 11/15/24 22:00 Magnesium Oxide 800 mg BID PO 11/15/24 10:00 Acetaminophen/ Hydrocodone Bitart 1 tab Q4HP PRN PO 11/15/24 04:00 11/15/24 17:49 1 TAB Zinc Oxide 1 applic BID TOP 11/15/24 10:00 11/15/24 10:00 1 APPLIC Albuterol 2.5 mg Q4HR NEB 11/15/24 10:00 11/15/24 18:51 2.5 MG Ipratropium [place] 0.5 mg Q4HR NEB 11/15/24 10:00 11/15/24 18:51 0.5 MG Gabapentin 300 mg TID PO 11/15/24 14:00 11/15/24 15:12 300 MG Quetiapine Fumarate 800 mg HS PO 11/15/24 22:00 Trazodone HCl 50 mg HS PO 11/15/24 22:00 Cefepime HCl 50 ml @ 12.5 mls/hr Q8H IV 11/15/24 18:00 Ergocalciferol 50,000 unit Q7D PO 11/15/24 10:00 11/15/24 10:15 50,000 UNIT Methylprednisolone Sodium Succinate 40 mg DAILY IV 11/16/24 10:00 11/19/24 23:55 Morphine Sulfate 2 mg Q4HPRN PRN IV 11/15/24 16:00 11/15/24 16:22 2 MG Metronidazole 100 ml @ 100 mls/hr Q8H IV 11/15/24 16:45 11/15/24 16:36 100 MLS/HR Doxycycline Hyclate 250 ml @ 125 mls/hr Q12H IV 11/15/24 17:45 11/15/24 17:43 125 MLS/HR Examination General Appearance: Alert, Oriented X3, Cooperative, No acute distress HEENT: Atraumatic, PERRLA, EOMI, Mucous membrane moist/pink Respiratory: Bilateral rhonchi Cardiovascular: Regular rate, Normal S1, Normal S2, No murmurs, no chest wall tenderness Abdominal: Normal bowel sounds, Soft, No tenderness, No hepatospenomegaly, No masses Extremities: No clubbing, No cyanosis, No edema, Normal pulses, No tenderness/swelling Skin: Colostomy on the right side of abdomen, with pericolostomy stump redness Neuro: Normal gait, Normal speech, Strength at 5/5 X4 ext, Normal tone, Sensation intact, Cranial nerves 3-12 NL, Reflexes 2+ Psych/Mental Status: Mental status NL, Mood NL laboratory and microbiology Laboratory Tests 11/15/24 10:21 11/15/24 05:31 Test 11/15/24 05:31 Range/Units Serum Glucose 134 H 74-106 mg/dL Labs and/or images reviewed: Labs reviewed by me, Image(s) reviewed by me Problem List/Assessment/Plan Problem List/Assessment/Plan This is a 59-year-old female with past medical history of COPD on home oxygen (2 L as required), CKD stage IIIA, diarrhea diabetes type 2, major depressive disorder, came to the hospital with shortness with, chest pain, abdominal pain, and leakage around the colostomy stem. Admitted on 11/14. Acute chest pain, likely musculoskeletal, ruled out ACS EKG shows no significant ST or T-wave changes Trop I series are negative BNP is within normal limits Echocardiogram shows ejection fraction 55% with grade 1 diastolic heart failure Cardiology on the board, performed Nuclear stress test shows no induced ischemia, low risk study Acute COPD exacerbation Acute on chronic hypoxic respiratory failure likely due to COPD exacerbation/pneumonia Pneumonia likely due to Gram-positive Gram-negative but./viral Sepsis likely due to pneumonia Chest x-ray shows hyperinflated lung, with prominent bronchovascular marking Patient is on nasal cannula Injection methylprednisolone 40 mg daily Injection cefepime, doxycycline, Flagyl Nebulization with albuterol and ipratropium q.6 hours Influenza type a and B, and COVID-19 are negative, check MRSA nares Cellulitis at colostomy site, with the obvious abscess Colostomy malfunctioning Patient has history of mesenteric thrombosis requiring colectomy on 2021 There is leakage around the colostomy site, with redness around the colostomy site Surgery is on the board, recommended that no intervention is required at the moment, recommended colostomy holiday to limit the irritation at the side, NPO Wound care nurses on the board Diabetes mellitus type 2 Insulin according to the sliding scale CKD stage IIIA, baseline status Hypokalemia, supplemented Hypomagnesemia, supplemented Hyperchloremia, monitoring Vitamin-D deficiency Supplemented Dyslipidemia Continue atorvastatin Active smoker Patient did consulted regarding the risk of smoking, and consulted for the smoking cessation for more than 23 minutes Major depressive disorder Continue home medication DIET: NPO DVT prophylax: Lovenox GI prophylaxis: Protonix Bowel regimen: Patient is NPO, for colostomy holiday, no laxative indicated ACP: Goal of care discussed with for more than 22 minutes, patient is full code Active smoker, patient was consulted for the risk of smoking and consulted for smoking cessation for more than 18 minutes Patient's status discussed with patient Case discussed with Dr. Dubose Plan discussed with: Patient, Other (RN) My Orders My Orders Orders - JESSICA GILES RESDIENT Procedure Category Date Status Time Albuterol Medneb PHA 11/15/24 In Process (Ventolin Medneb) 10:00 Ipratropium Medneb PHA 11/15/24 In Process (Atrovent Medneb) 10:00 Gabapentin Capsule PHA 11/15/24 In Process (Neurontin Capsule) 14:00 Quetiapine Fumarate PHA 11/15/24 In Process Tablet (Seroquel Tab 22:00 Trazodone Hcl PHA 11/15/24 In Process (Desyrel) 22:00 Methylprednisolone PHA 11/16/24 In Process Sod Succ (Solu Medrol 10:00 Comprehensive LAB 11/16/24 Verified Metabolic Panel 04:00 Complete Blood Count LAB 11/16/24 Verified 04:00 Date of Service: Nov 15, 2024 Billing Provider: MONICA SAAVEDRA MD Common Visit Codes: [id number] INP/OBS CARE(HIGH) Secondary Visit Codes: [id number] CHNG SMOKING >10MIN, [id number] CARE PLAN 30 MINUTES JESSICA GILES RESDIENT Nov 15, 2024 20:59 MONICA SAAVEDRA MD Nov 16, 2024 09:45
[2024-11-15 21:03] LABS: Urine Blood Negative /uL (Negative); Urine Clarity Clear (Clear); Urine Color Light-Yellow (Yellow); Urine Protein, UAD Negative (Negative); Urine Urobilinogen Normal (Negative); Urine pH 5.5 (5.0-9.0)
[2024-11-15 21:10] LABS: Benzodiazephine Screen, Urine Neg (NEGATIVE); Cannabinoid Screen, Urine Pos (NEGATIVE); Creatinine, Urine 59.44 mg/dL (30.0-125.0); Opiate Scree,Urine Pos (NEGATIVE)
[2024-11-15 21:13] LABS: Amphetamine Screen, Urine Neg (NEGATIVE); Barbiturate Scree,Urine Neg (NEGATIVE); Cocaine Screen, Urine Neg (NEGATIVE); Phencyclidine Screen, Urine Neg (NEGATIVE)
[2024-11-15] MEDS: QUEtiapine FUMARATE 100 MG TAB PO SCH (21:45)
[2024-11-15] MEDS: ATORVASTATIN 20 MG TAB PO SCH (21:46)
[2024-11-15] MEDS: traZODone HCL 50 MG TAB PO SCH (21:46)
[2024-11-15] MEDS ORDERED: ATORVASTATIN 20 MG TAB PO SCH (22:00)
[2024-11-15] MEDS ORDERED: QUEtiapine FUMARATE 100 MG TAB PO SCH (22:00)
[2024-11-16] VITALS (19 sets, daily range): BP systolic 78–114; BP diastolic 33–67; PULSE 68–89; RESP 14–18; TEMP 97.8–98.7; O2SAT 81–100
[2024-11-16] MEDS ORDERED: LORA-1123 PO (00:09)
[2024-11-16] MEDS ORDERED: PERCOT PO (00:11)
[2024-11-16] MEDS ORDERED: QUET400T13 PO (00:13)
[2024-11-16] MEDS ORDERED: TRAZ-227 PO (00:14)
[2024-11-16 06:43] LABS: Basophils # (auto) 0 10 ^3/uL (0-0.2); Basophils % (auto) 0.2 % (0.0-2.0); Eosinophils # (auto) 0 10 ^3/uL (0-0.8); Hematocrit 33.1 % (36.0-46.0); Hemoglobin 11.8 g/dL (12.2-16.2); Lymphocytes # (auto) 0.4 10 ^3/uL (0.4-5.4); Lymphocytes % (auto) 4.6 % (10.0-50.0); Mean Corpuscular Hemoglobin 33.6 pg (28.0-32.0); Mean Corpuscular Hgb Conc. 35.7 g/dL (32.0-36.0); Mean Corpuscular Volume 94.1 fL (80.0-100.0); Monocytes # (auto) 0.5 10 ^3/uL (0-1.3); Monocytes % (auto) 5.8 % (0.0-12.0); Neutrophils # (auto) 8.3 10 ^3/uL (1.6-8.6); Neutrophils % (auto) 89.4 % (37.0-80.0); Platelet Count (auto) 145 10^3/uL (140-450); Red Blood Cells 3.51 10^6/uL (4.0-5.20); Red Cell Distribution Width 12.2 % (11.8-14.3); White Blood Cell 9.3 10^3/uL (4.4-10.8)
[2024-11-16 06:45] LABS: Alanine Aminotransferase 32 U/L (7-40); Albumin 3.6 g/dL (3.2-4.8); Anion Gap 8 (5-15); Aspartate Aminotransferase 21 U/L (13-40); Bilirubin, Total 0.4 mg/dL (0.2-1.0); Blood Urea Nitrogen 19 mg/dL (9-23); Calcium 9.5 mg/dL (8.7-10.4); Carbon Dioxide 20 mmol/L (20-31); Chloride 105 mmol/L (98-107); Potassium 4.9 mmol/L (3.5-5.1); Total Protein 6.3 g/dL (5.7-8.2)
[2024-11-16 06:46] LABS: Alkaline Phosphatase 129 U/L (46-116); Glucose 124 mg/dL (74-106); Sodium 133 mmol/L (136-145)
[2024-11-16] MEDS: methylPREDNISolone SOD SUCC 40 MG/ML VL IV SCH (09:16)
[2024-11-16] MEDS: SODIUM CHLORIDE 0.9% 1,000 ML IV ONE (09:17)
[2024-11-16] MEDS: SODIUM CHLORIDE 0.9% 500 ML IV ONE (13:25)
--- NOTE | 2024-11-16 19:45 | DVHPNRES ---
Progress Note Date Seen: Nov 16, 2024 Resident Creating Document: JESSICA GILES KECIA Has the PT tested + for MRSA If YES, has PT been informed?: Yes Medical Necessity Reason Pt with a Central, PICC or Fol: No Subjective Review of Systems This is a 59-year-old female with past medical history of CHF, COPD on home oxygen, CKD stage III type 2 diabetes mellitus, major depressive disorder, presented to the ED with a with chief complaint of chest pain and shortness of breath for last 2 days prior to this admission. According to the patient the chest pain started yesterday which was sharp in nature 08/08 and also felt like heaviness in the chest, localized in the central of the chest and radiate to the back, aggravated during deep breathing without any relieving factor and associated with shortness of breath and dry cough.The patient has COPD and she is on home oxygen about 2 L and use oxygen whenever needed. Patient also mention positive sick contact but denies dizziness, diaphoresis , paroxysmal nocturnal dyspnea, fever, malaise and recent traveling. She has a colostomy for last 2 years and recently she noticed pain, erythema and edema around the stomal wound and scattered rashes around the skin of the stoma. Initial EKG and troponin trends are unremarkable. The patient is admitted for further evaluation and management of chest pain. Cardiovascular: CHF, HTN, hyperipidemia Psych: Depression Renal/: Chronic renal insuff, Chronic renal failure Past Surgical History Colostomy, , hysterectomy and right elbow surgery Family History Family history is significant for cardiac disease Past Social History Used to smoke more than 2 packets per day for 50 yrs, cutting down to 5-10 cigarettes per day for last few months, nonalcoholic and smoked marijuana Today, patient seen and examined at the bedside. Patient is complaining of mild abdominal pain, shortness of breath and cough with leakage around colostomy stump. Patient reports: No new complaints Objective vital signs Vital Sign Date Time Temp Pulse Resp B/P (MAP) Pulse Ox O2 Delivery O2 Flow Rate FiO2 11/16/24 18:06 81 17 114/47 11/16/24 16:00 98.7 97 98.7 11/16/24 14:44 Room Air* 0 21 Total Intake and Output 11/15/24 11/15/24 11/16/24 15:00 23:00 07:00 Intake Total 300 ml 275 ml 150 ml Balance 300 ml 275 ml 150 ml medications Current Medications Medications Dose Ordered Sig/Santosh Route Start Time Stop Time Status Last Admin Dose Admin Sodium Chloride 10 ml Q8HR IV 11/15/24 06:00 11/16/24 14:00 10 ML Ondansetron HCl 4 mg Q4HP PRN IV 11/15/24 02:00 11/15/24 16:32 4 MG Acetaminophen 650 mg Q6HP PRN PO 11/15/24 02:00 Nitroglycerin 0.4 mg Q5MINP PRN SL 11/15/24 02:00 Morphine Sulfate 2 mg Q30M PRN IV 11/15/24 02:00 11/15/24 21:47 2 MG Aspirin 81 mg DAILY PO 11/15/24 10:00 11/16/24 09:16 81 MG Pantoprazole Sodium 40 mg DAILY PO 11/15/24 10:00 11/16/24 09:15 40 MG Fluoxetine HCl 40 mg DAILY PO 11/15/24 10:00 11/16/24 09:16 40 MG Diagnostic Test (Pha) 1 strip ACHS 11/15/24 07:00 11/16/24 17:00 1 STRIP Insulin Human Regular ACHS SC 11/15/24 07:00 11/16/24 06:22 2 UNITS Dextrose 50 ml UD PRN IV 11/15/24 03:00 Atorvastatin Calcium 40 mg HS PO 11/15/24 22:00 11/15/24 21:46 40 MG Magnesium Oxide 800 mg BID PO 11/15/24 10:00 11/16/24 09:16 800 MG Acetaminophen/ Hydrocodone Bitart 1 tab Q4HP PRN PO 11/15/24 04:00 11/16/24 09:19 1 TAB Zinc Oxide 1 applic BID TOP 11/15/24 10:00 11/16/24 09:17 1 APPLIC Albuterol 2.5 mg Q4HR NEB 11/15/24 10:00 11/16/24 14:44 2.5 MG Ipratropium [place] 0.5 mg Q4HR NEB 11/15/24 10:00 11/16/24 14:44 0.5 MG Gabapentin 300 mg TID PO 11/15/24 14:00 11/16/24 17:35 300 MG Quetiapine Fumarate 800 mg HS PO 11/15/24 22:00 11/15/24 21:45 800 MG Trazodone HCl 50 mg HS PO 11/15/24 22:00 11/15/24 21:46 50 MG Ergocalciferol 50,000 unit Q7D PO 11/15/24 10:00 11/15/24 10:15 50,000 UNIT Methylprednisolone Sodium Succinate 40 mg DAILY IV 11/16/24 10:00 11/19/24 23:55 11/16/24 09:16 40 MG Morphine Sulfate 2 mg Q4HPRN PRN IV 11/15/24 16:00 11/16/24 17:36 2 MG Metronidazole 100 ml @ 100 mls/hr Q8H IV 11/15/24 16:45 11/16/24 13:26 100 MLS/HR Doxycycline Hyclate 250 ml @ 125 mls/hr Q12H IV 11/15/24 17:45 11/16/24 17:35 125 MLS/HR Cefepime HCl 50 ml @ 12.5 mls/hr Q8H IV 11/16/24 20:00 Examination General Appearance: Alert, Oriented X3, Cooperative, No acute distress HEENT: Atraumatic, PERRLA, EOMI, Mucous membrane moist/pink Respiratory: Bilateral rhonchi Cardiovascular: Regular rate, Normal S1, Normal S2, No murmurs, no chest wall tenderness Abdominal: Normal bowel sounds, Soft, No tenderness, No hepatospenomegaly, No masses Extremities: No clubbing, No cyanosis, No edema, Normal pulses, No tenderness/swelling Skin: Colostomy on the right side of abdomen, with pericolostomy stump redness Neuro: Normal gait, Normal speech, Strength at 5/5 X4 ext, Normal tone, Sensation intact, Cranial nerves 3-12 NL, Reflexes 2+ Psych/Mental Status: Mental status NL, Mood NL laboratory and microbiology Laboratory Tests 11/16/24 05:30 Test 11/16/24 05:30 Range/Units Serum Glucose 124 H 74-106 mg/dL Microbiology Date/Time Source Procedure Growth Status 11/15/24 17:20 Blood Blood Culture - Preliminary NO GROWTH AFTER 24 HOURS OF INCUBATION. Resulted Labs and/or images reviewed: Labs reviewed by me, Image(s) reviewed by me Problem List/Assessment/Plan Problem List/Assessment/Plan This is a 59-year-old female with past medical history of COPD on home oxygen (2 L as required), CKD stage IIIA, diarrhea diabetes type 2, major depressive disorder, came to the hospital with shortness with, chest pain, abdominal pain, and leakage around the colostomy stem. Admitted on 11/14. Acute chest pain, likely musculoskeletal, ruled out ACS EKG shows no significant ST or T-wave changes Continue aspirin 81 mg Trop I series are negative BNP is within normal limits Echocardiogram shows ejection fraction 55% with grade 1 diastolic heart failure Cardiology on the board, performed Nuclear stress test shows no induced ischemia, low risk study Acute COPD exacerbation Acute on chronic hypoxic respiratory failure likely due to COPD exacerbation/pneumonia Pneumonia likely due to Gram-positive Gram-negative but./viral Sepsis likely due to pneumonia Chest x-ray shows hyperinflated lung, with prominent bronchovascular marking Patient is on nasal cannula Injection methylprednisolone 40 mg daily Injection cefepime, doxycycline, Flagyl Nebulization with albuterol and ipratropium q.6 hours Influenza type a and B, and COVID-19 are negative, check MRSA nares, pending Cellulitis at colostomy site, with the obvious abscess Colostomy malfunctioning Patient has history of mesenteric thrombosis requiring colectomy on 2021 There is leakage around the colostomy site, with redness around the colostomy site Surgery is on the board, recommended that no intervention is required at the moment, recommended colostomy holiday to limit the irritation at the side, NPO Wound care nurses on the board, and put back the colostomy bag Diabetes mellitus type 2 Insulin according to the sliding scale CKD stage IIIA, baseline status Hypokalemia, supplemented Hypomagnesemia, supplemented Hyperchloremia, monitoring Vitamin-D deficiency Supplemented Dyslipidemia Continue atorvastatin Active smoker Patient did consulted regarding the risk of smoking, and consulted for the smoking cessation for more than 23 minutes Major depressive disorder Continue home medication DIET: Clear liquid diet DVT prophylax: Lovenox GI prophylaxis: Protonix Bowel regimen: No need for the laxative at the moment ACP: Full code Patient's status discussed with patient Case discussed with Dr. Dubose Plan discussed with: Patient My Orders My Orders Orders - JESSICA GILES RESDIKARMA Procedure Category Date Status Time Communication Order ORDERS 11/15/24 Transmitted 22:48 Nursery Vital Signs WILLIAM 11/16/24 In Process 11:51 Date of Service: Nov 16, 2024 Billing Provider: MONICA SAAVEDRA MD Common Visit Codes: [id number] INP/OBS CARE(HIGH) JESSICA GILES RESDIENT Nov 16, 2024 19:45 MONIAC SAAVEDRA MD Nov 20, 2024 11:18
[2024-11-16] MEDS: CEFEPIME 1GM/ 50ML 50 ML IV SCH (22:17)
[2024-11-17] VITALS (13 sets, daily range): BP systolic 93–118; BP diastolic 49–71; PULSE 66–83; RESP 16–20; TEMP 97.4–97.9; O2SAT 96–100
[2024-11-17] MEDS: SODIUM CHLORIDE 0.9% 1,000 ML IV ONE ×2 (07:15→11:00)
[2024-11-17] MEDS ORDERED: PRED20TA2 PO (14:52)
[2024-11-17] MEDS ORDERED: HYDR-4798 PO (14:52)
[2024-11-17] MEDS ORDERED: AUG875T PO (14:52)
[2024-11-17] MEDS ORDERED: DOXY1CAP57 PO (14:52)
[2024-11-17 16:00] LABS: Basophils # (auto) 0 10 ^3/uL (0-0.2); Basophils % (auto) 0.2 % (0.0-2.0); Eosinophils # (auto) 0.1 10 ^3/uL (0-0.8); Eosinophils % (auto) 1.6 % (0.0-7.0); Hematocrit 38.4 % (36.0-46.0); Hemoglobin 12.7 g/dL (12.2-16.2); Lymphocytes # (auto) 0.6 10 ^3/uL (0.4-5.4); Lymphocytes % (auto) 11.9 % (10.0-50.0); Mean Corpuscular Hemoglobin 31.4 pg (28.0-32.0); Mean Corpuscular Volume 95.2 fL (80.0-100.0); Monocytes # (auto) 0.3 10 ^3/uL (0-1.3); Monocytes % (auto) 5.6 % (0.0-12.0); Neutrophils # (auto) 3.8 10 ^3/uL (1.6-8.6); Neutrophils % (auto) 80.7 % (37.0-80.0); Platelet Count (auto) 135 10^3/uL (140-450); Red Blood Cells 4.04 10^6/uL (4.0-5.20); Red Cell Distribution Width 12.6 % (11.8-14.3); White Blood Cell 4.7 10^3/uL (4.4-10.8)
[2024-11-17 16:01] LABS: Alanine Aminotransferase 32 U/L (7-40); Albumin 3.9 g/dL (3.2-4.8); Anion Gap 7 (5-15); Aspartate Aminotransferase 19 U/L (13-40); BUN/Creatinine Ratio 13.3 (10.0-20.0); Blood Urea Nitrogen 17 mg/dL (9-23); Calcium 9.6 mg/dL (8.7-10.4); Carbon Dioxide 24 mmol/L (20-31); Chloride 103 mmol/L (98-107); Magnesium 1.9 mg/dL (1.6-2.6); Potassium 4.2 mmol/L (3.5-5.1)
[2024-11-17 16:02] LABS: Total Protein 6.9 g/dL (5.7-8.2)
[2024-11-17 16:05] LABS: Alkaline Phosphatase 132 U/L (46-116); Bilirubin, Total 0.3 mg/dL (0.2-1.0); Glucose 195 mg/dL (74-106); Sodium 134 mmol/L (136-145)
[2024-11-17 16:07] LABS: Lactic Acid w/Reflex 2.5 mmol/L (0.4-2.0)
--- NOTE | 2024-11-17 16:54 | DVHDSRES ---
Discharge Summary Date of Admission Resident Creating Document: DAVIS SAVAGE RESIDENT Nov 15, 2024 at 01:57 Date of Discharge: Nov 17, 2024 Admitting Diagnosis Chest pain and SOB. Labs/Diagnostic Data: Laboratory Results Test 11/17/24 15:16 11/17/24 15:00 11/17/24 13:00 11/17/24 11:41 Lactic Acid Level 2.5 mmol/L (0.4-2.0) White Blood Count 4.7 10^3/uL (4.4-10.8) Red Blood Count 4.04 10^6/uL (4.0-5.20) Hemoglobin 12.7 g/dL (12.2-16.2) Hematocrit 38.4 % (36.0-46.0) Mean Corpuscular Volume 95.2 fL (80.0-100.0) Mean Corpuscular Hemoglobin 31.4 pg (28.0-32.0) Mean Corpuscular Hemoglobin Concent 33.0 g/dL (32.0-36.0) Red Cell Distribution Width 12.6 % (11.8-14.3) Platelet Count 135 10^3/uL (140-450) Mean Platelet Volume 9.9 fL (6.9-10.8) Neutrophils (%) (Auto) 80.7 % (37.0-80.0) Lymphocytes (%) (Auto) 11.9 % (10.0-50.0) Monocytes (%) (Auto) 5.6 % (0.0-12.0) Eosinophils (%) (Auto) 1.6 % (0.0-7.0) Basophils (%) (Auto) 0.2 % (0.0-2.0) Neutrophils # (Auto) 3.8 10 ^3/uL (1.6-8.6) Lymphocytes # (Auto) 0.6 10 ^3/uL (0.4-5.4) Monocytes # (Auto) 0.3 10 ^3/uL (0-1.3) Eosinophils # (Auto) 0.1 10 ^3/uL (0-0.8) Basophils # (Auto) 0 10 ^3/uL (0-0.2) Nucleated Red Blood Cells 0.0 % Sodium Level 134 mmol/L (136-145) Potassium Level 4.2 mmol/L (3.5-5.1) Chloride Level 103 mmol/L (98-107) Carbon Dioxide Level 24 mmol/L (20-31) Anion Gap 7 (5-15) Blood Urea Nitrogen 17 mg/dL (9-23) Creatinine 1.28 mg/dL (0.550-1.02) Glomerular Filtration Rate Calc 48 mL/min (>90) BUN/Creatinine Ratio 13.3 (10.0-20.0) Serum Glucose 195 mg/dL (74-106) Calcium Level 9.6 mg/dL (8.7-10.4) Magnesium Level 1.9 mg/dL (1.6-2.6) Total Bilirubin 0.3 mg/dL (0.2-1.0) Aspartate Amino Transferase (AST) 19 U/L (13-40) Alanine Aminotransferase (ALT) 32 U/L (7-40) Alkaline Phosphatase 132 U/L (46-116) Total Protein 6.9 g/dL (5.7-8.2) Albumin 3.9 g/dL (3.2-4.8) POC Glucose 126 mg/dl (70-106) Test 11/15/24 17:20 11/15/24 16:47 11/15/24 15:57 11/15/24 05:31 Erythrocyte Sedimentation Rate 28 mm/hr (0-20) Urine Color Light-yellow (Yellow) Urine Clarity Clear (Clear) Urine pH 5.5 (5.0-9.0) Urine Specific [place] 1.010 (1.001-1.035) Urine Protein Negative (Negative) Urine Ketones Negative (Negative) Urine Blood Negative /uL (Negative) Urine Nitrite Negative (Negative) Urine Bilirubin Negative (Negative) Urine Urobilinogen Normal mg/dL (Negative) Urine Leukocyte Esterase Negative /uL (Negative) Urine RBC <1 /hpf (0 - 4) Urine WBC None seen /hpf (0 - 5) Urine Squamous Epithelial Cells None seen /hpf (<5) Urine Bacteria None seen /hpf (None Seen) Urine Creatinine 59.44 mg/dL (30.0-125.0) Urine Sodium 31 mmol/L (40-220) Urine Glucose Normal mg/dL (Normal) Urine Total Protein 25.0 mg/dL (1-14) Urine Opiates Screen Pos (NEGATIVE) Urine Fentanyl Screen Neg (NEGATIVE) Urine Barbiturates Screen Neg (NEGATIVE) Urine Phencyclidine Screen Neg (NEGATIVE) Urine Amphetamines Screen Neg (NEGATIVE) Urine Benzodiazepines Screen Neg (NEGATIVE) Urine Cocaine Screen Neg (NEGATIVE) Urine Cannabinoids Screen Pos (NEGATIVE) Influenza Type A Antigen Negative (Negative) Influenza Type B Antigen Negative (Negative) SARS-CoV-2 Antigen (Rapid) Negative (NEGATIVE) C-Reactive Protein High Sensitivity 0.96 mg/dL (<1.0) Triglycerides Level 166 mg/dL (< 150) Cholesterol Level 114 mg/dL (< 200) LDL Cholesterol 48 mg/dL (< 100) HDL Cholesterol 51 mg/dL (40-59) Lipase 50 U/L (12-53) Vitamin D 25-Hydroxy 9.3 ng/mL (30.0-100) Test 11/15/24 02:15 11/15/24 00:59 11/15/24 00:45 11/14/24 23:59 Thyroid Stimulating Hormone (TSH) 2.83 uIU/mL (0.55-4.78) Troponin I High Sensitivity 3 ng/L (</=34) Prothrombin Time 10.3 sec (9.3-11.8) Prothrombin Time INR 0.97 (0.9-1.15) Activated Partial Thromboplast Time 21.1 SEC (24.5-34.5) Hemoglobin A1c 6.5 % A1C (<5.7) B-Type Natriuretic Peptide 22.33 pg/mL (0-100) Other Laboratory Tests 11/17/24 15:00 11/17/24 13:00 Brief Hx & Hospital Course: Hospitalization Summary: A 59-year-old female with a history of CHF, COPD on home oxygen, CKD stage III, type 2 diabetes, and major depressive disorder presented with chest pain and shortness of breath. Her chest pain, rated 9/10, was sharp, central, radiating to the back, and aggravated by deep breathing. She also reported shortness of breath and dry cough but denied other symptoms like dizziness or fever. She has a colostomy with recent pain and erythema around the stoma. Initial EKG and troponin were unremarkable. She was admitted for further evaluation and management of chest pain. Her past medical history includes significant cardiovascular, renal, and surgical issues, and she has a notable family history of cardiac disease. She has a long history of heavy smoking, recently reduced. Today, she reported mild abdominal pain, shortness of breath, and leakage around the colostomy stump. The patient after getting IV antibiotics cefepime, doxycycline, Flagyl and surgical evaluation hemodynamically stable to continue treatment outpatient [facility]. Medical conditions treated in hospitalization: 1. Acute chest pain, likely musculoskeletal, ruled out ACS 2. grade 1 diastolic heart failure 3. CAD ruled out. 4. Acute COPD exacerbation 5. Acute on chronic hypoxic respiratory failure due to above 7. Likely Pneumonia likely due to Gram-positive Gram-negative but./viral 8. Sepsis likely due to pneumonia 9. Cellulitis at colostomy site, with the obvious abscess 10. Colostomy malfunctioning 11. history of mesenteric thrombosis requiring colectomy on 2021 12. There is leakage around the colostomy site, with redness around the colostomy site 13. Wound care nurses on the board, needs outpatient follow up 14. Diabetes mellitus type 2 15. CKD stage IIIA, baseline status 16. Hypokalemia, supplemented 17. Hypomagnesemia, supplemented 18 Hyperchloremia, monitoring 19. Vitamin-D deficiency 20. Dyslipidemia on atorvastatin 21. Active smoker, bedside 11+ minutes of cesation counseling done. 22. Major depressive disorder Discharge Medication: 1. Doxycycline 100 mg b.i.d. for 10 days 2. Augmentin 875 b.i.d. for 10 days 3. Tablet prednisone 40 mg daily for 5 more days Follow up: 1. Follow up with PCP in 1-2 weeks. 2, Follow up with general surgery outpatient [facility]. Case discussed with Dr. Dubose. Discharge discussion needed 35 minutes. Patient agreeable to the plan. Consults/Reason for consult Surgery Cardiology Operations or Procedures [place] [address] Ph: [phone] DIAGNOSTIC IMAGING Diagnostic Imaging Report : [id number] Signed PATIENT: ALIREZA WOODS ACCT: [id number] UNIT: [id number] : 1965 LOC: TELE ROOM / BED: [address] [place] [address] AGE / SEX: 59 / F ADM STATUS: ADM IN SERVICE 1217 ORDERING PHYSICIAN: GOMEZ SANFORD RESIDENT PROCEDURE(s): CWMM - CARDIOLITE MULTIPLE REASON: chest pain ORDER NUMBER(s): [id number], ACCESSION NUMBER(s): [id number] APPROVED REPORT Exam: Nuclear Stress Test BMI: 0 Stress Test Details HR Max Heart Rate (APMHR): 159.712198 bpm Target HR (85% APMHR): 135.857797 bpm BP ECG Stress ECG Conclusion Resting ECG shows normal sinus rhythm. At peak stress level no dynamic EKG changes was noted to suggest ischemia. Resting images shows near homogeneous uptake of radioactive tracer throughout the myocardium without evidence of myocardial infarction. Stress images shows near homogeneous uptake of radioactive tracer throughout the myocardium without evidence of myocardial ischemia. Well-preserved left ventricular systolic function 83%. Impression: Negative stress for ischemia, low risk study NM EXAM: Myocardial Perfusion REST/STRESS Imaging Protocol: Rest Tc-99m/Stress Tc-99m 1 day Resting Data Rest SPECT myocardial perfusion imaging was performed in supine position 60 minutes following the intravenous injection of 13.5 mCi of Tc-99m Sestamibi. Time of rest injection: 1305 Time of rest imagin Administration Route: IV Administration Site: Right Arm Pharmacologic Stress Pharmacologic stress test was performed by injecting Regadenoson 0.4 mg IV push followed by the intravenous injection of 35 mCi of Tc-99m Sestamibi. Time of stress injection: 1412 Time of stress imagin Administration Route: IV Administration Site: Right Arm Gated Stress SPECT was performed 60 minutes after stress injection. The images were gated to evaluate regional wall motion and calculate left ventricular ejection fraction. Stress only was performed in the Supine position. Nuclear Conclusion ECG Findings: negative for ischemia Clinical Findings: negative for ischemia Nuclear Findings: negative for ischemia Exercise Capacity: not assessed Left Ventricular Function: normal Risk Study: low Resting ECG shows normal sinus rhythm. At peak stress level no dynamic EKG changes was noted to suggest ischemia. Resting images shows near homogeneous uptake of radioactive tracer throughout the myocardium without evidence of myocardial infarction. Stress images shows near homogeneous uptake of radioactive tracer throughout the myocardium without evidence of myocardial ischemia. Well-preserved left ventricular systolic function 83%. Impression: Negative stress for ischemia, low risk study SIGNED BY: HANSEL PALMER MD SIGNED DATE/TIME: 11/15/24 1634 CC: [address] [address] Ph: [phone] DIAGNOSTIC IMAGING Diagnostic Imaging Report : [id number] Signed PATIENT: ALIREZA WOODS ACCT: [id number] UNIT: [id number] : 1965 LOC: ER ROOM / BED: / AGE / SEX: 59 / F ADM STATUS: REG ER SERVICE 2342 ORDERING PHYSICIAN: MODESTO MCMILLAN MD PROCEDURE(s): CXRP - CHEST PORTABLE REASON: CP ORDER NUMBER(s): [id number], ACCESSION NUMBER(s): [id number] CHEST RADIOGRAPH Indication: CP Technique: Single frontal view of the chest was obtained Comparison: CHEST XRAY 1 VIEW on DOS: 03/06/22, CXR1 on DOS: 03/06/22, CXR1 on DOS: 03/04/22 FINDINGS: Lines and Tubes: None Lungs: Clear Pleura: No effusion. No pneumothorax. Cardiomediastinal contours: Unremarkable Bones: Unremarkable IMPRESSION: 1. Clear lungs. ATED BY: JAQUAN WALDRON DO DICTATED DATE/TIME: 11/15/246 SIGNED BY: JAQUAN WALDRON DO SIGNED DATE/TIME: 11/15/246 CC: [place] [address] Ph: [phone] DIAGNOSTIC IMAGING Diagnostic Imaging Report : [id number] Signed PATIENT: ALIREZA WOODS ACCT: [id number] UNIT: [id number] : 1965 LOC: TELE ROOM / BED: [address] [place] [address] AGE / SEX: 59 / F ADM STATUS: ADM IN SERVICE 0157 ORDERING PHYSICIAN: KATHY ELIAS PROCEDURE(s): ECIDC - ECHO 2D MODE CARDIAC DOP REASON: Chest pain ORDER NUMBER(s): [id number], ACCESSION NUMBER(s): [id number] APPROVED REPORT EXAM: LIMITED Two-dimensional and M-mode echocardiogram with Doppler and color Doppler. Blood Pressure: 102/56 mmHg INDICATION Chest Pain RISK FACTORS Height: 5' 7", Weight: 180 DIMENSIONS LVDd 4.1 (3.8-5.7cm) LA (2D) 3.6 (1.9-4.0cm) Aortic Root 3.4 (2.0- 3.7cm) LVDs 3.0 (2.5-4.0cm) LA (MM) (1.9-4.0cm) Aortic Cusp Exc 1.5 (1.5- 2.0cm) EF (%) 53.0 (55-70%) Rt. Atrium 3.4 (1.9-4.0cm) Asc. Aorta cm IVSd 0.8 (0.7-1.1cm) RV (D) (1.8-2.4cm) PWd 0.9 (0.7-1.1cm) Mitral Valve Mitral Mitral Stenosis E wave 0.90m/s MV Mean GR. mmHg A wave 0.70m/s MV Peak GR. mmHg E/A ratio 1.3 2D MVA cm2 Aortic Valve Aortic Valve Aortic Stenosis V1 0.80m/s AO Mean GR. 3mmHg V2 1.20m/s AO Peak GR. 7mmHg LVOT Diameter 2.0 (1.8-2.4cm) Doppler VIRGIL 2.09cm2 Other Information Quality : Technically Limited Rhythm : Technically limited study due to body habitus. Conclusion Normal left ventricular size and dimension. Normal left ventricular systolic function estimated ejection fraction 55%. There is a grade 1 diastolic dysfunction. Normal right ventricular size and dimension. Normal right ventricular systolic function. Normal biatrial size and dimension. Normal aortic valve structure and function. Normal mitral valve structure and function. Normal tricuspid structure and function. The pulmonary valve is grossly normal. No pericardial effusion. SIGNED BY: HANSEL PALMER MD SIGNED DATE/TIME: 11/15/24 8016 CC: Condition at Discharge: Fair Final Diagnosis/Problems List Acute on chronic respiratory failure , likely due to COPD exacerbate Colostomy tube malfunction Discharge Disposition: Home Discharge Instruct/Medications Diet: Cardiac 2g Na,low cholest Activity: No Restrictions, As Tolerated Follow Up/Referral: Follow up with the PCP within 1 week after discharge follow up with the surgery on outpatient basis. Follow up with the discharge Clinic at to October Medications: Doxycycline 100 mg b.i.d. for 10 days Augmentin 875 b.i.d. for 10 days Tablet prednisone 40 mg daily for 5 more days Continue home medicine Discharge Statement: "Patient was advised to return to the ER or call 911 if any headaches, dizziness, shortness of breath, chest pain, abdominal pain, bleeding, fevers, or worsening of medical condition. Patient was counseled about treatment plan, medications, possible side effects, patientverbalized understanding. All questions were answered to the best of my ability. This discharge took greater then 30 minutes in planning, reviewing documentation, counseling the patient, and discussing with other team members." ASSESSMENT ASSESSMENT Assessment Acute on chronic respiratory failure , likely due to COPD exacerbate Colostomy tube malfunction Date of Service: Nov 17, 2024 Billing Provider: MONICA SAAVEDRA MD Common Visit Codes: 98250-JKR/OBS DISCH DAY >30min DAVIS SAVAGE RESIDENT Nov 17, 2024 16:54 MONICA SAAVEDRA MD Nov 20, 2024 11:54
[2024-11-18] MEDS ORDERED: DOXY1CAP57 PO (11:46)
[2024-11-18] MEDS ORDERED: AUG875T PO (11:46)
[2024-11-18] MEDS ORDERED: PRED20TA2 PO (11:46)
[2024-11-19] MEDS ORDERED: INFLUENZA TRIVALENT 2024-2025 0.5 ML INJ IM ONE (08:00)
== END 2024-11-17 18:50 | disposition home or self-care (01) | DRG 177 ==
LOC: ER 23:34 → EDBD 23:34 → TELE 11-15 01:57 → ER 11-15 02:01 → TELE-E-ADS 11-15 23:17
PROVIDERS: ADMIT Student in an Organized Health Care Education/Training Program; ATTEND Student in an Organized Health Care Education/Training Program
DX: J15.69 Pneumonia due to other Gram-negative bacteria (principal); J96.21 Acute and chronic respiratory failure with hypoxia; J44.1 Chronic obstructive pulmonary disease with (acute) exacerbation; L03.818 Cellulitis of other sites; I50.32 Chronic diastolic (congestive) heart failure; K94.03 Colostomy malfunction; J15.9 Unspecified bacterial pneumonia; N18.31 Chronic kidney disease, stage 3a; E87.6 Hypokalemia; E83.42 Hypomagnesemia; E11.22 Type 2 diabetes mellitus with diabetic chronic kidney disease; E78.5 Hyperlipidemia, unspecified; F32.A Depression, unspecified; Z82.49 Family history of ischemic heart disease and other diseases of the circulatory system; Z90.49 Acquired absence of other specified parts of digestive tract; Z86.73 Personal history of transient ischemic attack (TIA), and cerebral infarction without residual deficits; Z99.81 Dependence on supplemental oxygen; Z83.3 Family history of diabetes mellitus; Z87.891 Personal history of nicotine dependence; Y84.8 Other medical procedures as the cause of abnormal reaction of the patient, or of later complication, without mention of misadventure at the time of the procedure; Y92.89 Other specified places as the place of occurrence of the external cause
CPT/HCPCS: 36415; 78452; 80053; 80061; 80307; 81001; 82306; 82570; 82962; 83036; 83605; 83690; 83735; 83880; 84156; 84300; 84443; 84484; 85025; 85610; 85652; 85730; 86141; 87040; 87426; 87804; 93005; 93017; 93306; 94640; 99291; G0378; J1815; J2405; J3490

== ENCOUNTER 2024-12-03 20:23 | Inpatient (IN) | payer MEDICARE, MEDICAID ==
[~2024-12-03] VITALS: Ht 170.2 cm; Wt 80.7 kg
[~2024-12-03 20:23] MED LIST changes: +AUG875T PO; -DIAZ-680 PO; +DOXY1CAP57 PO; -FURO20TA3 PO; -MORP30TA PO; -QUE100T PO; +QUET400T13 PO; -QUET50TA PO; -QUET50TA5 PO; -TRAZ-181 PO; +TRAZ-227 PO; -ZOLP5TAB5 PO
--- NOTE | 2024-12-03 21:21 | ED.PDOC ---
History of Present Illness HPI Comments 59 y/o F is BIBA for c/o abdominal pain s/o colostomy bag dislodgement, today. Patient endorses on having pain and associated redness to surround skin around side of colostomy bag insertion site. She comments on having colostomy bag placed at [facility] by Dr. Terry Freeman, recently. She endorses on no fever, chills, nausea, vomiting, or other associated symptoms or modifiers at this time. Chief Complaint: Abdominal Pain Time Seen by MD: 20:50 Primary Care Provider: UNABLE TO OBTAIN Reviewed Notes: Nurses Notes, Telecommunications Project Manager Notes, Medications, Allergies Allergies: Coded Allergies: Levofloxacin (Verified Allergy, Severe, 11/04/15) Penicillins (Verified Allergy, Unknown, 10/01/21) Home Meds Active Scripts Prednisone (Prednisone) 20 Mg Tab, 40 MG PO DAILY for 5 Days, #10 MG Prov:ANTONI KLEIN RESIDENT 11/18/24 Doxycycline Monohydrate (Doxycycline Monohydrate) 100 Mg Cap, 100 MG PO BID for 10 Days, #20 CAP Prov:ANTONI KLEIN RESIDENT 11/18/24 Amoxicillin & Pot Clavulanate (AUGMENTIN TABLET) 875 Mg Tb, 875 MG PO BID for 10 Days, #20 TAB Prov:ANTONI KLEIN RESIDENT 11/18/24 Prednisone (Prednisone) 20 Mg Tab, 40 MG PO DAILY for 5 Days, #10 MG 0 Refills Prov:MONICA SAAVEDRA MD 11/17/24 Amoxicillin & Pot Clavulanate (AUGMENTIN TABLET) 875 Mg Tb, 875 MG PO BID for 10 Days, #20 TAB 0 Refills Prov:MONICA SAAVEDRA MD 11/17/24 Doxycycline Monohydrate (Doxycycline Monohydrate) 100 Mg Cap, 1 CAP PO BID, #20 CAP 0 Refills Prov:MONICA SAAVEDRA MD 11/17/24 Azithromycin (Azithromycin) 500 Mg Tab, 1 TAB PO DAILY, #7 TAB Prov:ADELINE CIFUENTES MD 11/17/22 Nitrofurantoin Monohydrate Mac (Macrobid) 100 Mg Cap, 100 MG PO BID for 7 Days, #14 CAP Prov:JUAN A CORRALES MD 07/01/22 Psyllium (Metamucil Fiber) 51.7 % Griffin, 51.7 % PO BID for 30 Days, #60 PACK 2 Refills Prov:JUAN A CORRALES MD 07/01/22 Prednisone (Prednisone) 20 Mg Tab, 2 TAB PO DAILY for 2 Days, #4 TAB Prov:JAROCHO FINCH MD 05/29/22 Albuterol Sulfate (VENTOLIN MDI) 90 Mcg Ih, 90 MCG IN Q6HP PRN for 30 Days, #1 INH Prov:JAROCHO FINCH MD 05/29/22 Reported Medications Trazodone Hcl (Trazodone Hcl) 50 Mg Tab, 75 MG PO HS, MG 11/16/24 Quetiapine Fumerate (QUETIAPINE FUMARATE) 400 Mg Tab, 800 MG PO for 30 Days, MG 11/16/24 Oxycodone W/ Acetaminophen (Percocet 5/325MG) 1 Tab Tb, 1 TAB PO QIDP, #120 TAB 11/16/24 Lorazepam (Lorazepam) 1 Mg Tab, 1 TAB PO QIDP, #90 TAB 11/16/24 Gabapentin (Gabapentin) 300 Mg Cap, 300 MG PO TID for 30 Days, MG 11/15/22 Furosemide (Lasix) 20 Mg Tb, 1 TAB PO BID, #90 TAB 1 Refill 11/15/22 Aspirin (Aspirin) 325 Mg Tab, 325 MG PO DAILY for 30 Days, MG 11/15/22 Pantoprazole Sodium Sesquihydr (Protonix) 40 Mg Tab, 40 MG PO DAILY, #30 TAB 05/26/22 Aripiprazole (Abilify) 20 Mg Tab, 30 MG PO DAILY, TAB 05/26/22 Lisinopril (Lisinopril) 10 Mg Tab, 10 MG PO DAILY for 30 Days, MG 05/26/22 Fluoxetine HCl (Pmdd) (Fluoxetine HCl) 20 Mg Tab, 40 MG PO DAILY, TAB 05/26/22 Insulin Glargine (Lantus) 100 Unit/Ml Inj, 60 UNIT SC HS, INJ 05/25/22 Fluoxetine Hcl (Pmdd) (Fluoxetine) 20 Mg Cap, 40 MG PO HS, CAP 11/05/15 Zolpidem Tartrate (Ambien) 10 Mg Tab, 1 TAB PO QPM, #30 TAB 5 Refills 11/05/15 Information Source: Patient, Emergency Med Personnel Mode of Arrival: Ambulatory Severity: Moderate Timing: Hours Duration: Since onset Prehospital treatment: 12 Lead EKG, Director Of Child Welfare Services Past Medical History PAST MEDICAL HISTORY: Anxiety, CVA, Depression, DM, High Lipids Surgical History: Cholecystectomy, Surgical History (Other): colostomy bag placement BRAID MAKER History: No Pertinent BRAID MAKER History Family History Family History: Reviewed,noncontributory to illness Social History Smoker: Non-Smoker Alcohol: Denies ETOH Use Drugs: Denies Drug Use Lives In: Home Gastrointestinal: reports: abdominal pain Integumetry: reports: change in color (redness to colostomy bag insertion site ) All Other Systems: Reviewed and Negative (negative unless otherwise stated above or in HPI) Physical Exam General Appearance: Normal, Severe Distress HEENT: Normal ENT Inspection, Pharynx Normal, TMs Normal Neck: Full Range of Motion, Non-Tender, Normal, Normal Inspection Respiratory: Chest Non-Tender, Lungs Clear, No Accessory Muscle Use, No Respiratory Distress, Normal Breath Sounds Cardiovascular: No Edema, No JVD, No Murmur, No Gallop, Normal Peripheral Pulses, Regular Rate/Rhythm Breast Exam: Deferred Gastrointestinal: No Organomegaly, No Pulsatile Mass, Normal Bowel Sounds, Soft, Tenderness (colostomy bag site ), Other (colostomy bag site dislodgement) Genitalia: Deferred Pelvic: Deferred Rectal: Deferred Extremities: No calf tenderness, Normal capillary refill, Normal inspection, Normal range of motion, Non-tender, No pedal edema Musculoskeletal : Apperance: Normal Neurologic: Alert, handbell choir director II-XII nml as Tested, No Motor Deficits, Normal Affect, Normal Mood, No Sensory Deficits Cerebellar Function: Normal Reflexes: Normal Skin: Dry, Normal Color, Warm, Other (erythema to colostomy bag site ) Lymphatic: No Adenopathy Was a procedure done? Was a procedure done?: No Differential Dx Considerations may include: colostomy bag dislodgement, sepsis, post-op complication X-Ray, Labs, Meds, VS Vital Signs Date Time Temp Pulse Resp B/P (MAP) Pulse Ox O2 Delivery O2 Flow Rate FiO2 12/03/24 23:14 82 16 119/79 12/03/24 20:23 98.1 94 16 96/60 (72) 100 Lab Test 12/03/24 21:18 Range/Units White Blood Count 13.8 H 4.4-10.8 10^3/uL Red Blood Count 4.71 4.0-5.20 10^6/uL Hemoglobin 14.9 12.2-16.2 g/dL Hematocrit 44.4 36.0-46.0 % Mean Corpuscular Volume 94.2 80.0-100.0 fL Mean Corpuscular Hemoglobin 31.6 28.0-32.0 pg Mean Corpuscular Hemoglobin Concent 33.6 32.0-36.0 g/dL Red Cell Distribution Width 13.1 11.8-14.3 % Platelet Count 32 L 140-450 10^3/uL Mean Platelet Volume 9.8 6.9-10.8 fL Neutrophils (%) (Auto) 80.0 37.0-80.0 % Lymphocytes (%) (Auto) 10.5 10.0-50.0 % Monocytes (%) (Auto) 8.0 0.0-12.0 % Eosinophils (%) (Auto) 1.2 0.0-7.0 % Basophils (%) (Auto) 0.3 0.0-2.0 % Neutrophils # (Auto) 11.1 H 1.6-8.6 10 ^3/uL Lymphocytes # (Auto) 1.5 0.4-5.4 10 ^3/uL Monocytes # (Auto) 1.1 0-1.3 10 ^3/uL Eosinophils # (Auto) 0.2 0-0.8 10 ^3/uL Basophils # (Auto) 0 0-0.2 10 ^3/uL Nucleated Red Blood Cells 0.1 % Prothrombin Time 10.6 9.3-11.8 sec Prothrombin Time INR 1.00 0.9-1.15 Activated Partial Thromboplast Time 22.7 L 24.5-34.5 SEC Sodium Level 133 L 136-145 mmol/L Potassium Level 3.8 3.5-5.1 mmol/L Chloride Level 101 98-107 mmol/L Carbon Dioxide Level 22 20-31 mmol/L Anion Gap 10 5-15 Blood Urea Nitrogen 17 9-23 mg/dL Creatinine 1.26 H 0.550-1.02 mg/dL Glomerular Filtration Rate Calc 49 >90 mL/min BUN/Creatinine Ratio 13.5 10.0-20.0 Serum Glucose 145 H 74-106 mg/dL Calcium Level 9.6 8.7-10.4 mg/dL Total Bilirubin 0.8 0.2-1.0 mg/dL Aspartate Amino Transferase (AST) 36 13-40 U/L Alanine Aminotransferase (ALT) 36 7-40 U/L Alkaline Phosphatase 148 H 46-116 U/L Troponin I High Sensitivity 4 </=34 ng/L Total Protein 6.0 5.7-8.2 g/dL Albumin 3.3 3.2-4.8 g/dL Current Medications Medications (Trade) Dose Ordered Sig/Santosh Route Start Time Stop Time Status Last Admin Hydromorphone HCl (Dilaudid Injection) 1 mg ONCE ONCE IV 12/03/24 21:15 12/03/24 21:16 DC 12/03/24 23:14 Sodium Chloride 1,000 ml @ 1,000 mls/hr Q1H ONCE IV 12/03/24 21:15 12/03/24 22:14 DC 12/03/24 23:13 Ondansetron HCl (Zofran) 4 mg ONCE ONCE IV 12/03/24 21:15 12/03/24 21:16 DC 12/03/24 23:14 Sodium Chloride 1,000 ml @ 150 mls/hr Q6H40M ONCE IV 12/03/24 21:15 12/04/24 03:54 12/03/24 23:15 Piperacillin Sod/ Tazobactam Sod 100 ml @ 100 mls/hr ONCE ONCE IV 12/03/24 21:15 12/03/24 22:14 DC 12/03/24 23:00 White blood cell count is 13.8. Creatinine is 1.26. Patient was hydrated given analgesics in Zofran with antibiotics for possible Colostomy cellulitis Abdominal pelvis CT is pending The patient will be admitted to the hospitalist for further evaluation and care. Time of 1ST Reevaluation: 21:20 Reevaluation 1ST: Unchanged Patient Education/Counseling: Diagnosis, Treatment Family Education/Counseling: No Family Present Departure 1 Departure Time of Disposition: 23:18 Impression: Primary Impression: Colostomy complication Additional Impression: Abdominal wall cellulitis Disposition: ADMITTED INPATIENT Admit to: Med Surg Condition: Guarded Critical Care Note Critical Care Time?: No Stability Stability form required: No Heart Score Heart Score: Heart Score Response (Comments) Value History N/A 0 EKG N/A 0 Age N/A 0 Risk Factors N/A 0 Troponin N/A 0 Total 0 I personally scribed for MODESTO MCMILLAN MD ([email or web address]) on 12/03/24 at 21:21. Electronically submitted by Arnol Barrera [email or web address]). MODESTO MCMILLAN MD Dec 03, 2024 21:21
[2024-12-03 22:00] LABS: Partial Thromboplastin Time 22.7 SEC (24.5-34.5); Prothrombin Time 10.6 sec (9.3-11.8)
[2024-12-03 22:03] LABS: Alanine Aminotransferase 36 U/L (7-40); Albumin 3.3 g/dL (3.2-4.8); Anion Gap 10 (5-15); Aspartate Aminotransferase 36 U/L (13-40); BUN/Creatinine Ratio 13.5 (10.0-20.0); Bilirubin, Total 0.8 mg/dL (0.2-1.0); Blood Urea Nitrogen 17 mg/dL (9-23); Calcium 9.6 mg/dL (8.7-10.4); Carbon Dioxide 22 mmol/L (20-31); Chloride 101 mmol/L (98-107); Potassium 3.8 mmol/L (3.5-5.1)
[2024-12-03 22:05] LABS: Alkaline Phosphatase 148 U/L (46-116); Glucose 145 mg/dL (74-106); Sodium 133 mmol/L (136-145)
[2024-12-03] MEDS: PIPERACILLIN-TAZOB 3.375GM 100 ML IV ONE (23:00)
[2024-12-03] MEDS: SODIUM CHLORIDE 0.9% 1,000 ML IV ONE ×2 (23:13→23:15)
[2024-12-03] MEDS: HYDROmorphone HCL 2 MG/ML VL/or syr IV ONE (23:14)
[2024-12-03] MEDS: ONDANSETRON HCL 4 MG/2 ML VIAL IV ONE (23:14)
[2024-12-04] MEDS ORDERED: DEXTROSE (50%) 50ML SYRG IV PRN (01:30)
[2024-12-04 02:52] LABS: Lactic Acid w/Reflex 2.8 mmol/L (0.4-2.0)
--- NOTE | 2024-12-04 02:55 | DVH ---
Examination: CXRP Clinical Indication: colostomy bag missing Comparison: None. Technique: Single view of chest obtained. Findings: Both the lung harris appear clear. Both the costophrenic and cardiophrenic angles are normal. Trachea and mediastinum are in the midline. Cardiac size is within normal limits. There is no evidence of pleural effusion or pneumothorax. Bony thoracic cage appears normal. Impression: No abnormality is detected on this study. Electronically Signed 12/04/2024 02:55 John Stewart
--- NOTE | 2024-12-04 03:01 | DVHHPRES ---
History of Present Illness Resident Creating Document: REBEKAH FINCH RESIDENT History of Present Illness Patient is a 59-year-old female with a past medical history as described below came to the ED with a chief complaint of pain and inflammation around colostomy stoma. Patient reported that she was recently discharged from the hospital after admitted for shortness of Breath and inflammation around the stoma, after which she was doing well apparently until 3 days ago when her colostomy bag came of she was not able to put it back as there was peristomal swelling and inflammation. she also reported pain around the stoma. Patient reported that she was had 4-5 episodes of vomiting in the last 3 days, no associated blood mostly consisted of bile and undigested food. Patient denied fever, chills, watery stool in the colostomy. Past medical history: CHF, COPD, CKD stage 3, type 2 diabetes mellitus, MDD, hyperlipidemia Past Surgical History: Colostomy 2.5 years ago due to ischemic colitis, 4 C- section, hysterectomy and right elbow surgery Social History: Used to smoke more than 2 packets per day for 50 yrs, cutting down to 5 cigarettes per day for last few months, nonalcoholic and smoked marijuana Home medications: Trazodone 50 mg HS, quetiapine 800 mg , fluoxetine 40 mg, lisinopril 10 mg, Review of Systems Review of Systems Patient reports [id number] pain around the area of colostomy stoma. Denies current nausea, vomiting Denies shortness of breath, chest pain, dizziness, palpitations. Allergies: Coded Allergies: Levofloxacin (Verified Allergy, Severe, 11/04/15) Penicillins (Verified Allergy, Unknown, 10/01/21) Medications Current Medications Medications Dose Ordered Sig/Santosh Route Start Time Stop Time Status Last Admin Dose Admin Ondansetron HCl 4 mg Q4HPRN PRN IV 12/04/24 01:00 Quetiapine Fumarate 400 mg HS PO 12/04/24 22:00 Trazodone HCl 50 mg HS PO 12/04/24 22:00 Fluoxetine HCl 40 mg DAILY PO 12/04/24 10:00 Piperacillin Sod/ Tazobactam Sod 100 ml @ 25 mls/hr Q8HR IV 12/04/24 06:00 Diagnostic Test (Pha) 1 strip IQ4HR 12/04/24 04:00 Insulin Human Regular IQ4HR SC 12/04/24 04:00 Dextrose 50 ml UD PRN IV 12/04/24 01:30 Exam Vital Signs Vital Signs Date Time Temp Pulse Resp B/P (MAP) Pulse Ox O2 Delivery O2 Flow Rate FiO2 12/03/24 23:14 82 16 119/79 12/03/24 20:23 98.1 100 Exam Physical Examination Constitutional: Patient was alert and oriented to time, place and person appears to be in mild distress because pain. Gen - no pallor, no icterus, no cyanosis, no clubbing, no LAD, 2+ pitting edema in the left lower limb Skin - Patients skin is warm and dry. HEENT - normocephalic, atraumatic, dry mucous membranes. Neck - full ROM, no LAD, no JVD Pulmonary - B/L equal breath sounds, no crackles , no wheezing cardiovascular - normal S1,S2 heard. no murmurs heard. GI - soft abdomen with with the erythema and tenderness to palpation in the peristomal area. no hepatospleenomegaly. Bowel sounds normoactive Neurological -Bilateral upper extremity strength 5/5, bilateral lower extremity strength 5/5, no facial droop, normal speech, no tremor, no sensory deficiets. Labs/Xrays Labs Test 12/04/24 02:13 12/03/24 21:18 Range/Units White Blood Count 13.8 H 4.4-10.8 10^3/uL Red Blood Count 4.71 4.0-5.20 10^6/uL Hemoglobin 14.9 12.2-16.2 g/dL Hematocrit 44.4 36.0-46.0 % Mean Corpuscular Volume 94.2 80.0-100.0 fL Mean Corpuscular Hemoglobin 31.6 28.0-32.0 pg Mean Corpuscular Hemoglobin Concent 33.6 32.0-36.0 g/dL Red Cell Distribution Width 13.1 11.8-14.3 % Platelet Count 32 L 140-450 10^3/uL Mean Platelet Volume 9.8 6.9-10.8 fL Neutrophils (%) (Auto) 80.0 37.0-80.0 % Lymphocytes (%) (Auto) 10.5 10.0-50.0 % Monocytes (%) (Auto) 8.0 0.0-12.0 % Eosinophils (%) (Auto) 1.2 0.0-7.0 % Basophils (%) (Auto) 0.3 0.0-2.0 % Neutrophils # (Auto) 11.1 H 1.6-8.6 10 ^3/uL Lymphocytes # (Auto) 1.5 0.4-5.4 10 ^3/uL Monocytes # (Auto) 1.1 0-1.3 10 ^3/uL Eosinophils # (Auto) 0.2 0-0.8 10 ^3/uL Basophils # (Auto) 0 0-0.2 10 ^3/uL Nucleated Red Blood Cells 0.1 % Prothrombin Time 10.6 9.3-11.8 sec Prothrombin Time INR 1.00 0.9-1.15 Activated Partial Thromboplast Time 22.7 L 24.5-34.5 SEC Sodium Level 133 L 136-145 mmol/L Potassium Level 3.8 3.5-5.1 mmol/L Chloride Level 101 98-107 mmol/L Carbon Dioxide Level 22 20-31 mmol/L Anion Gap 10 5-15 Blood Urea Nitrogen 17 9-23 mg/dL Creatinine 1.26 H 0.550-1.02 mg/dL Glomerular Filtration Rate Calc 49 >90 mL/min BUN/Creatinine Ratio 13.5 10.0-20.0 Serum Glucose 145 H 74-106 mg/dL Calcium Level 9.6 8.7-10.4 mg/dL Total Bilirubin 0.8 0.2-1.0 mg/dL Aspartate Amino Transferase (AST) 36 13-40 U/L Alanine Aminotransferase (ALT) 36 7-40 U/L Alkaline Phosphatase 148 H 46-116 U/L Troponin I High Sensitivity 4 </=34 ng/L Total Protein 6.0 5.7-8.2 g/dL Albumin 3.3 3.2-4.8 g/dL Assessment/Plan Assessment/Plan Sepsis likely d/t ?peroistomal cellulitis Acute abdominal pain Peristomal dermatitis versus infection ?Cellulitis rule out abscess Sirs positive Lactic acidosis - 1 L NS bolus given, currently NS 150 mL/hr - on Zosyn 3.375g q.8 hours IV - surgery consulted - Zofran p.r.n. for nausea - morphine pain control - on clear liquid diet Type 2 diabetes mellitus - on mild insulin sliding scale Major depression disorder - continued on home meds Goals of care discussed with the patient for over 25 minutes. Full code Plan discussed Dr. Villalba Plan discussed with: Patient My Orders Orders - REBEKAH FINCH RESIDENT Procedure Category Date Status Time Admit ADMIT 12/04/24 Transmitted 00:47 Complete Blood Count LAB 12/04/24 Logged 04:00 Comprehensive LAB 12/04/24 Logged Metabolic Panel 04:00 Urinalysis LAB 12/04/24 Logged 00:47 Drug Screen LAB 12/04/24 Logged 00:47 Stool Occult Blood LAB 12/04/24 Logged 00:47 Stool Wbc LAB 12/04/24 Logged 00:47 Covid19 Antigen Bailee LAB 12/04/24 Logged Rapid Influenza A&B LAB 12/04/24 Logged 00:47 Ondansetron Hcl PHA 12/04/24 In Process (Zofran) 01:00 Code Status CODE 12/04/24 Transmitted 00:47 * Surgical Consult CONS 12/04/24 Transmitted Lactic Acid W/ Reflex LAB 12/04/24 In Process Order 01:30 Reticulocyte Count LAB 12/04/24 In Process 01:30 Lactate Dehydrogenase LAB 12/04/24 In Process 01:30 Erythrocyte LAB 12/04/24 Logged Sedimentation Rate 01:30 C-Reactive Protein LAB 12/04/24 In Process 01:30 Bilat Lower Dvt US 12/04/24 Logged 01:30 Quetiapine Fumarate PHA 12/04/24 In Process Tablet (Seroquel Tab 22:00 Trazodone Hcl PHA 12/04/24 In Process (Desyrel) 22:00 Fluoxetine Capsule PHA 12/04/24 In Process (Prozac Capsule) 10:00 Piperacillin-Tazob PHA 12/04/24 In Process 3.375gm (Zosyn 3.375g 06:00 Lactic Acid W/ Reflex LAB 12/04/24 Logged Order 04:00 Glucose Blood PHA 12/04/24 In Process (Accu-Chek Comfort 04:00 Insulin R (Human) PHA 12/04/24 In Process (Insulin R) 04:00 Dextrose 50% Syringe PHA 12/04/24 In Process 01:30 Velasquez Stain Slide LAB 12/04/24 In Process 04:00 Date of Service: Dec 04, 2024 Billing Provider: GRISELDA VILLALBA MD Common Visit Codes: [id number] INP/OBS CARE (HIGH) REBEKAH FINCH RESIDENT Dec 04, 2024 03:01 GRISELDA VILLALBA MD Dec 04, 2024 20:10
[2024-12-04 04:44] LABS: Basophils # (auto) 0.1 10 ^3/uL (0-0.2); Basophils % (auto) 0.6 % (0.0-2.0); Eosinophils # (auto) 0.2 10 ^3/uL (0-0.8); Eosinophils % (auto) 1.5 % (0.0-7.0); Hematocrit 43.5 % (36.0-46.0); Hemoglobin 14.4 g/dL (12.2-16.2); Lymphocytes # (auto) 1.5 10 ^3/uL (0.4-5.4); Lymphocytes % (auto) 10.1 % (10.0-50.0); Mean Corpuscular Hemoglobin 31.5 pg (28.0-32.0); Mean Corpuscular Hgb Conc. 33.1 g/dL (32.0-36.0); Mean Corpuscular Volume 95.1 fL (80.0-100.0); Monocytes # (auto) 1.1 10 ^3/uL (0-1.3); Monocytes % (auto) 7.7 % (0.0-12.0); Neutrophils # (auto) 11.6 10 ^3/uL (1.6-8.6); Neutrophils % (auto) 80.1 % (37.0-80.0); Nucleated Red Blood Cells % 0.1 %; Platelet Count (auto) 136 10^3/uL (140-450); Red Blood Cells 4.58 10^6/uL (4.0-5.20); Red Cell Distribution Width 13.3 % (11.8-14.3); White Blood Cell 14.5 10^3/uL (4.4-10.8)
[2024-12-04 05:00] LABS: Anion Gap 9 (5-15); BUN/Creatinine Ratio 14.2 (10.0-20.0); Blood Urea Nitrogen 18 mg/dL (9-23); Calcium 8.8 mg/dL (8.7-10.4); Chloride 103 mmol/L (98-107); Potassium 3.7 mmol/L (3.5-5.1)
[2024-12-04 05:01] LABS: Alanine Aminotransferase 43 U/L (7-40); Albumin 3.2 g/dL (3.2-4.8); Alkaline Phosphatase 143 U/L (46-116); Aspartate Aminotransferase 50 U/L (13-40); Bilirubin, Total 0.9 mg/dL (0.2-1.0); Carbon Dioxide 18 mmol/L (20-31); Glucose 235 mg/dL (74-106); Sodium 130 mmol/L (136-145); Total Protein 5.8 g/dL (5.7-8.2)
[2024-12-04] MEDS: ACCU-CHEK COMFORT CURVE STRIP VI SCH (05:03)
[2024-12-04] MEDS: InsuLIN REG 1unit/0.01ml Soln (100units/ml) SC SCH (05:04)
[2024-12-04 05:54] VITALS: PULSE 74; RESP 16; O2SAT 96
[2024-12-04] MEDS: SODIUM CHLORIDE 0.9% 1,000 ML IV SCH (06:10)
[2024-12-04] MEDS: PIPERACILLIN-TAZOB 3.375GM 100 ML IV SCH (06:10)
--- NOTE | 2024-12-04 07:53 | DVH ---
Bilateral lower extremity venous duplex Clinical History: rule out dvt Comparison: None Findings: Duplex Doppler evaluation of the deep venous systems of both lower extremities from the common femora l veins to the popliteal veins including color Doppler and spectral/pulsed waveform analysis was perf ormed. RIGHT SIDE: The common femoral vein demonstrates appropriate compressibility and waveform variability. There is compressibility/patency of the great saphenous vein at the proximal thigh. The femoral vein demonstrates appropriate compressibility and waveform variability. The deep femoral vein demonstrates appropriate compressibility and waveform variability. The popliteal vein demonstrates appropriate compressibility and waveform variability. There is normal compressibility at the tibioperoneal trunk. Posterior tibial vein not visualized. LEFT SIDE: The common femoral vein demonstrates noncompressible thrombus. There is noncompressible thrombus in the greater saphenous vein. The femoral vein demonstrates appropriate compressibility and waveform variability. The deep femoral vein demonstrates appropriate compressibility and waveform variability. The popliteal vein demonstrates appropriate compressibility and waveform variability. There is normal compressibility at the tibioperoneal trunk. Posterior tibial vein not visualized. Impression: 1. Positive DVT in the left common femoral vein and greater saphenous vein. 2. No deep venous thrombosis in the right lower extremity.
[2024-12-04 08:25] LABS: COVID19 ANTIGEN SOFIA FIA NEGATIVE (NEGATIVE); Rapid Influenza A Negative (Negative)
[2024-12-04 08:26] LABS: Rapid Influenza B Negative (Negative)
[2024-12-04 09:44] VITALS: PULSE 89; RESP 16; O2SAT 100
[2024-12-04] MEDS ORDERED: ACETAMINOPHEN 325 MG TAB PO PRN (09:45)
[2024-12-04] MEDS: ONDANSETRON HCL 4 MG/2 ML VIAL IV PRN (10:19)
[2024-12-04] MEDS: FLUoxetine HCL 20 MG CAP PO SCH (10:19)
[2024-12-04] MEDS: MORPHINE SULFATE INJ 2 MG/ml SYRG IV PRN (10:21)
[2024-12-04] MEDS: IOHEXOL 300 MG/ML 100ML BOTTLE IJ ONE (10:48)
--- NOTE | 2024-12-04 11:16 | DVH ---
Exam: CT CT AB PELVIS W WO CON-IV ONLY History: abdominal cellullitis Comparison Study: None available at time of dictation. Technique: Multidetector spiral CT of the abdomen and pelvis was performed from lung bases to pubic s ymphysis. Initial imaging was done without IV contrast, followed by post contrast images of the abdo men and pelvis. Intravenous contrast was administered during this examination. Portal venous imaging was obtained. Axial, coronal and sagittal multiplanar reformats were performed by the technologist o n a separate workstation. CONTRAST: Type of contrast: Omni 300 Contrast injected: 100 ml Radiation Dose : CT Dose: CTDI volume is 33 mGy. Dose-length product is 1705 mGy*cm Findings: Lung Bases: Masslike consolidation right lung base with associated trace pleural effusion. Liver: Diffuse hepatic steatosis. Gallbladder and biliary Tree: Surgically absent. Spleen: Unremarkable Pancreas: The pancreas is normal in appearance without focal lesions or abnormal enhancement. Adrenal Glands: Unremarkable Kidneys: Kidneys demonstrate normal symmetric enhancement without focal lesions, calculi or hydroneph rosis. Bladder: Unremarkable Bowel: The stomach is grossly normal in appearance. Postsurgical changes with a right lower quadrant ileostomy. Left colostomy is also noted. Loops of small bowel are mildly dilated. The appendix is no t visualized; however, no secondary findings of acute appendicitis identified. Ascites: Absent Lymphadenopathy: No mesenteric, retroperitoneal or periportal lymphadenopathy. Abdominal wall and Mesentery: Postsurgical changes. Ventral hernia containing bowel. Soft tissue dens ity along the old ventral incision could be scar tissue. Vasculature: Calcified atherosclerotic disease. Pelvic Organs: The uterus is surgically absent. Musculoskeletal: Grade 1 anterolisthesis of L4 on L5. IMPRESSION: 1. Masslike consolidation in the right lung base again noted, possibly rounded atelectasis. Associate d trace right pleural effusion. Diffuse hepatic steatosis. Postsurgical changes in the bowel with a right lower quadrant ileostomy and a left lower quadrant colostomy. Mildly dilated loops of small bow el are nonspecific. Ventral hernia containing bowel. Some likely scarring along the old incision. No definite cellulitis or abscess. Clinical correlation and continued follow-up is recommended. Consi remington further evaluation with ultrasound. Radiation optimization: All CT scans at this facility use at least one of these dose optimization garrick hniques: Automated exposure control mA and/or kV adjustment per patient size (includes targeted exams where dose is matched to clinical indication) or iterative reconstruction. HS:Y
[2024-12-04 12:02] LABS: Erythrocyte Sedimentation Rate 2 mm/hr (0-20)
[2024-12-04 12:17] LABS: Urine Bacteria None Seen /hpf (None Seen)
[2024-12-04] MEDS: metroNIDAZOLE 500MG/100ML 100 ML IV ONE (12:18)
[2024-12-04] MEDS: ENOXAPARIN SOD 80 MG/0.8ML SYRINGE SC SCH (12:26)
[2024-12-04 12:49] LABS: Urine Blood Negative /uL (Negative); Urine Clarity Clear (Clear); Urine Color Light-Yellow (Yellow); Urine Protein, UAD TRACE (Negative); Urine Specific Gravity 1.023 (1.001-1.035); Urine Squamous Epithelial Cell FEW /hpf (<5); Urine Urobilinogen Normal (Negative); Urine WBC 2 /hpf (0 - 5)
[2024-12-04 12:51] LABS: Cannabinoid Screen, Urine Neg (NEGATIVE); Opiate Scree,Urine Pos (NEGATIVE)
[2024-12-04 12:54] LABS: Amphetamine Screen, Urine Neg (NEGATIVE); Barbiturate Scree,Urine Neg (NEGATIVE); Benzodiazephine Screen, Urine Neg (NEGATIVE); Cocaine Screen, Urine Neg (NEGATIVE); Phencyclidine Screen, Urine Neg (NEGATIVE)
--- NOTE | 2024-12-04 13:23 | DVHPNRES ---
Progress Note Date Seen: Dec 04, 2024 Resident Creating Document: CRISTOPHER ZULUAGA RESIDENT Medical Necessity Reason Pt with a Central, PICC or Fol: No Subjective Review of Systems Patient is a 59-year-old female with past medical history of ischemic colitis s/p hemicolectomy with a colostomy bag, mesenteric thrombosis in 2021, COPD, CHF, CKD stage 3, type 2 diabetes, major depressive disorder, dyslipidemia on home oxygen 2 L, who came in due to peristomal erythema, swelling due to which she was unable to attach the ostomy bag. Patient notes that these symptoms have been ongoing since discharge from her previous hospitalization 2 weeks ago. Of note, 2 weeks ago patient was admitted to the [facility] for similar symptoms which were managed and she was discharged home with p.o. antibiotic. At baseline patient uses wheelchair and walker to ambulate. Past surgical history: Hemicolectomy colostomy bag, 4 times section, hysterectomy, cholecystectomy, left elbow surgery, back surgery Home medications: Albuterol, aripiprazole, aspirin, fluoxetine, furosemide, gabapentin, insulin, lisinopril, Protonix, prednisolone, quetiapine, trazodone, zolpidem Past Hospitalization: 2 weeks ago for similar symptoms at the [facility] Social & Personal history: Patient lives alone and her daughter is her in-home support service. Patient has a strong smoking history of 3 pack per day for 40 years, now has cut down to 3-4 cigarettes per day. Denies using alcohol or drugs. Allergies: Levofloxacin (breathing difficulty), morphine (itching) Patient seen and examined at bedside. Patient is alert and oriented to time, place person and responding to all questions. General: Fatigue, fever, chills Eyes: No Pain, No Vision change, No Conjunctivae inflammation, No Eyelid inflammation, No Other, No Redness ENT: No Ear pain, No Ear discharge, No Nose pain, congestion, rhinorrhea, No Mouth pain, No Mouth swelling, No Throat pain, No Throat swelling, No Other Cardiovascular: No Chest Pain, No Palpitations, No Orthopnea, No Paroxysmal No Dyspnea, No Edema, No Lt Headedness, No Other Respiratory: Dry cough, Shortness of breath, No SOB with exertion, No Wheezing, No Hemoptysis, No Pleuritic Pain, No Sputum, No Other Gastrointestinal: Nausea, No Vomiting, Abdominal Pain, No Diarrhea, No Constipation, No Melena, No Hematochezia, No Other Genitourinary: No Dysuria, No Frequency, No Incontinence, No Hematuria, No Retention, No Other Musculoskeletal: No other, No neck pain, No shoulder pain, No arm pain, No back pain, No hand pain, No leg pain, No foot pain Skin: No Rash, No Lesions, No Jaundice, No Bruising, No Other Objective vital signs Vital Sign Date Time Temp Pulse Resp B/P (MAP) Pulse Ox O2 Delivery O2 Flow Rate FiO2 12/04/24 11:10 91 16 98/68 12/04/24 11:08 99 12/04/24 09:44 Room Air* 0 21 12/04/24 09:44 98.3 98.3 Total Intake and Output 12/03/24 12/03/24 12/04/24 15:00 23:00 07:00 Intake Total 175 ml Balance 175 ml medications Current Medications Medications Dose Ordered Sig/Santosh Route Start Time Stop Time Status Last Admin Dose Admin Ondansetron HCl 4 mg Q4HPRN PRN IV 12/04/24 01:00 12/04/24 10:19 4 MG Quetiapine Fumarate 400 mg HS PO 12/04/24 22:00 Trazodone HCl 50 mg HS PO 12/04/24 22:00 Fluoxetine HCl 40 mg DAILY PO 12/04/24 10:00 12/04/24 10:19 40 MG Diagnostic Test (Pha) 1 strip IQ4HR 12/04/24 04:00 12/04/24 12:00 1 STRIP Insulin Human Regular IQ4HR SC 12/04/24 04:00 12/04/24 08:00 2 UNITS Dextrose 50 ml UD PRN IV 12/04/24 01:30 Morphine Sulfate 2 mg Q4HPRN PRN IV 12/04/24 02:45 12/04/24 10:21 2 MG Enoxaparin Sodium 80 mg Q12HR SC 12/04/24 10:00 12/04/24 12:26 80 MG Acetaminophen 650 mg Q6HP PRN PO 12/04/24 09:45 Cefepime HCl 50 ml @ 12.5 mls/hr Q8HR IV 12/04/24 22:00 Metronidazole 100 ml @ 100 mls/hr Q8HR IV 12/04/24 14:00 Examination General Appearance: Cooperative. Well developed. Well nourished. NAD Head Exam: Normal inspection Neck Exam: Normal inspection. Non-tender. Normal alignment Pulmonary/Respiratory: Chest non-tender. Clear bilateral breath sounds, no crackles, wheezing. Cardiovascular/Chest: Regular rate and rhythm. No murmurs. No JVD. Peripheral Pulses: 2+ Radial (R). 2+ Radial (L). 2+ Pedal (R). 2+ Pedal (L) Abdominal Exam: Normal bowel sounds. Soft. Ostomy site without a colostomy bag noted, swollen ostomy site with erythema, no purulence, no visible veins, Nontender. No hepatospenomegaly. No masses Ankle Exam: Negative ankle edema Lower extremities: Negative lower extremity edema. Left lower extremity greater in size than right lower extremity Neuro/Mental Status: A&O x4. Coherent. Thoughts/Psych: Normal thought pattern. Appropriate mood and affect. Good judgement and insight Skin Exam: Normal inspection. Normal color. Warm. Dry laboratory and microbiology Laboratory Tests 12/04/24 04:15 Test 12/04/24 04:15 Range/Units Serum Glucose 235 H 74-106 mg/dL Labs and/or images reviewed: Labs reviewed by me, Image(s) reviewed by me Problem List/Assessment/Plan Problem List/Assessment/Plan Peristomal skin infection: Fungal versus erysipelas Sepsis due to above S/p ostomy - CT abdomen pelvis: Masslike consolidation in the right lung base again noted, possibly rounded atelectasis. Associated trace right pleural effusion. Diffuse hepatic steatosis. Postsurgical changes in the bowel with the right lower quadrant ileostomy in the left lower quadrant colostomy. Mildly dilated loops of small bowel are nonspecific. Ventral hernia containing bowel. Small likely scarring along the old incision. No definite cellulitis or abscess. Clinical correlation and continued follow-up is recommended. Consider further evaluation with ultrasound. - IV cefepime, IV metronidazole Q 8 hours - ordered blood culture, wound culture with Gram staining and MRSA screen - surgery on board: No indications for acute intervention at this time Chronic respiratory failure, on home O2 2 L COPD exacerbation - CXR: No abnormality detected on this study. - ipratropium and albuterol med nebs Questionable KARO on CKD stage 3 - monitor Left lower extremity proximal DVT (left common femoral vein and left greater saphenous vein) Hypercoagulable state secondary to unknown cause? History of mesenteric vein thrombosis 2021 which led to ischemic colitis, s/p hemicolectomy - lower extremity Doppler: Positive DVT in the left common femoral vein and greater saphenous vein - 80 mg Lovenox b.i.d. - consider coagulable workup in the outpatient setting Type 2 diabetes, insulin dependent - mild sliding scale insulin Heart failure with preserved ejection fraction, currently stable - monitor Major depressive disorder - resumed home med fluoxetine 40 mg p.o. daily - quetiapine 400 mg - trazodone 50 mg Goals of care: Full code, discussed for >16 minutes on 12/04/2024 Plan discussed with patient Plan discussed with Dr. Pittman Plan discussed with: Patient, Other (RN) My Orders My Orders Orders - CRISTOPHER ZULUAGA Procedure Category Date Status Time Enoxaparin Sodium PHA 12/04/24 In Process (Lovenox) 10:00 Acetaminophen Tablet PHA 12/04/24 In Process (Tylenol Tablet) 09:45 * Wound Consult CONS 12/04/24 Transmitted Wound Culture W/ Gs DIEGO 12/04/24 Logged 12:43 Cefepime 2gm/50ml Ns PHA 12/04/24 In Process (Maxipime 2gm/50ml) 13:00 Cefepime 2gm/50ml Ns PHA 12/04/24 In Process (Maxipime 2gm/50ml) 22:00 Ct Ab Pelvis W Wo CT 12/04/24 Resulted Con-Iv Only 10:19 Metronidazole PHA 12/04/24 In Process 500mg/100ml (Flagyl 14:00 Mrsa Screen DIEGO 12/04/24 Logged 12:43 Date of Service: Dec 04, 2024 Billing Provider: PUJA PITTMAN MD Common Visit Codes: [id number] INP/OBS CARE(HIGH) CRISTOPHER ZULUAGA Dec 04, 2024 13:23 PUJA PITTMAN MD Dec 05, 2024 20:26
[2024-12-04] MEDS: CEFEPIME 2GM/50ML NS 50 ML IV ONE (13:26)
[2024-12-04] MEDS ORDERED: ALBUTEROL SULF 2.5 MG/0.5ML(0.5%) NEB SOLN NEB PRN (13:30)
[2024-12-04] MEDS: metroNIDAZOLE 500MG/100ML 100 ML IV SCH (14:00)
[2024-12-04] MEDS ORDERED: IPRATROPIUM BROM 0.5 MG/2.5ML INH SOL NEB SCH (14:00)
[2024-12-04 14:12] VITALS: BP 96/65; PULSE 94; RESP 18; TEMP 99.3; O2SAT 99
[2024-12-04] MEDS ORDERED: IPRATROPIUM BROM 0.5 MG/2.5ML INH SOL NEB PRN (14:15)
--- NOTE | 2024-12-04 17:03 | DVHINCON2 ---
Date of service: Dec 04, 2024 History of Present Illness 59-year-old female with a colostomy bag complaining of pain and swelling around the colostomy stoma. Patient reports that it has been leaking due to the pain she was unable to put the bag back on. He denies any fevers or chills. Past Medical History CHF. COPD. Chronic kidney disease. Type 2 diabetes. Hyperlipidemia. Past Surgical History Colectomy with colostomy two years ago for ischemic colitis. For C-sections. Hysterectomy. Right elbow surgery. Family History: Blood clots G8 FATHER Cancer G8 MOTHER Drug abuse G8 MOTHER G8 FATHER Family history: Diabetes mellitus G8 MOTHER Family history: Hypertension G8 MOTHER Family History Noncontributory Social History Over 100 pack year smoking history. Currently smoking five cigarettes a day. Denies alcohol. Reports marijuana. Allergies: Coded Allergies: Levofloxacin (Verified Allergy, Severe, 11/04/15) Penicillins (Verified Allergy, Unknown, 10/01/21) Home Meds Active Scripts Prednisone (Prednisone) 20 Mg Tab, 40 MG PO DAILY for 5 Days, #10 MG Prov:ANTONI KLEIN RESIDENT 11/18/24 Doxycycline Monohydrate (Doxycycline Monohydrate) 100 Mg Cap, 100 MG PO BID for 10 Days, #20 CAP Prov:ANTONI KLEIN RESIDENT 11/18/24 Amoxicillin & Pot Clavulanate (AUGMENTIN TABLET) 875 Mg Tb, 875 MG PO BID for 10 Days, #20 TAB Prov:ANTONI KLEIN RESIDENT 11/18/24 Prednisone (Prednisone) 20 Mg Tab, 40 MG PO DAILY for 5 Days, #10 MG 0 Refills Prov:MONICA SAAVEDRA MD 11/17/24 Amoxicillin & Pot Clavulanate (AUGMENTIN TABLET) 875 Mg Tb, 875 MG PO BID for 10 Days, #20 TAB 0 Refills Prov:MONICA SAAVEDRA MD 11/17/24 Doxycycline Monohydrate (Doxycycline Monohydrate) 100 Mg Cap, 1 CAP PO BID, #20 CAP 0 Refills Prov:MONICA SAAVEDRA MD 11/17/24 Azithromycin (Azithromycin) 500 Mg Tab, 1 TAB PO DAILY, #7 TAB Prov:ADELINE CIFUENTES MD 11/17/22 Nitrofurantoin Monohydrate Mac (Macrobid) 100 Mg Cap, 100 MG PO BID for 7 Days, #14 CAP Prov:JUAN A CORRALES MD 07/01/22 Psyllium (Metamucil Fiber) 51.7 % Griffin, 51.7 % PO BID for 30 Days, #60 PACK 2 Refills Prov:JUAN A CORRALES MD 07/01/22 Prednisone (Prednisone) 20 Mg Tab, 2 TAB PO DAILY for 2 Days, #4 TAB Prov:JAROCHO FINCH MD 05/29/22 Albuterol Sulfate (VENTOLIN MDI) 90 Mcg Ih, 90 MCG IN Q6HP PRN for 30 Days, #1 INH Prov:JAROCHO FINCH MD 05/29/22 Reported Medications Trazodone Hcl (Trazodone Hcl) 50 Mg Tab, 75 MG PO HS, MG 11/16/24 Quetiapine Fumerate (QUETIAPINE FUMARATE) 400 Mg Tab, 800 MG PO for 30 Days, MG 11/16/24 Oxycodone W/ Acetaminophen (Percocet 5/325MG) 1 Tab Tb, 1 TAB PO QIDP, #120 TAB 11/16/24 Lorazepam (Lorazepam) 1 Mg Tab, 1 TAB PO QIDP, #90 TAB 11/16/24 Gabapentin (Gabapentin) 300 Mg Cap, 300 MG PO TID for 30 Days, MG 11/15/22 Furosemide (Lasix) 20 Mg Tb, 1 TAB PO BID, #90 TAB 1 Refill 11/15/22 Aspirin (Aspirin) 325 Mg Tab, 325 MG PO DAILY for 30 Days, MG 11/15/22 Pantoprazole Sodium Sesquihydr (Protonix) 40 Mg Tab, 40 MG PO DAILY, #30 TAB 05/26/22 Aripiprazole (Abilify) 20 Mg Tab, 30 MG PO DAILY, TAB 05/26/22 Lisinopril (Lisinopril) 10 Mg Tab, 10 MG PO DAILY for 30 Days, MG 05/26/22 Fluoxetine HCl (Pmdd) (Fluoxetine HCl) 20 Mg Tab, 40 MG PO DAILY, TAB 05/26/22 Insulin Glargine (Lantus) 100 Unit/Ml Inj, 60 UNIT SC HS, INJ 05/25/22 Fluoxetine Hcl (Pmdd) (Fluoxetine) 20 Mg Cap, 40 MG PO HS, CAP 11/05/15 Zolpidem Tartrate (Ambien) 10 Mg Tab, 1 TAB PO QPM, #30 TAB 5 Refills 11/05/15 Current Medications Current Medications Medications (Trade) Dose Ordered Sig/Santosh Route PRN Reason Start Time Stop Time Status Last Admin Ondansetron HCl (Zofran) 4 mg Q4HPRN PRN IV NAUSEA / VOMITING 12/04/24 01:00 12/04/24 10:19 Quetiapine Fumarate (SEROquel TABLET) 400 mg HS PO 12/04/24 22:00 Trazodone HCl (Desyrel) 50 mg HS PO 12/04/24 22:00 Fluoxetine HCl (PROzac CAPSULE) 40 mg DAILY PO 12/04/24 10:00 12/04/24 10:19 Piperacillin Sod/ Tazobactam Sod 100 ml @ 25 mls/hr Q8HR IV 12/04/24 06:00 12/04/24 12:37 DC 12/04/24 06:10 Diagnostic Test (Pha) (Accu-Chek Comfort Curve T) 1 strip IQ4HR 12/04/24 04:00 12/04/24 16:23 Insulin Human Regular (InsuLIN R) IQ4HR SC 12/04/24 04:00 12/04/24 16:23 Dextrose 50 ml UD PRN IV Blood Sugar LESS THAN 60 12/04/24 01:30 Morphine Sulfate 2 mg Q4HPRN PRN IV SEVERE PAIN (7-10 PAIN SCALE) 12/04/24 02:45 12/04/24 14:19 Sodium Chloride 1,000 ml @ 150 mls/hr Q6H40M IV 12/04/24 05:45 12/04/24 10:32 DC 12/04/24 06:10 Enoxaparin Sodium (Lovenox) 80 mg Q12HR SC 12/04/24 10:00 12/04/24 12:26 Acetaminophen (Tylenol Tablet) 650 mg Q6HP PRN PO MILD PAIN (1-3 PAIN SCALE) 12/04/24 09:45 Cefepime HCl 50 ml @ 12.5 mls/hr Q8HR IV 12/04/24 22:00 Metronidazole 100 ml @ 100 mls/hr Q8HR IV 12/04/24 14:00 Ipratropium [place] (Atrovent Medneb) 0.5 mg Q4HWA NEB 12/04/24 14:00 12/04/24 14:06 DC Albuterol (Ventolin Medneb) 2.5 mg Q4HPRN PRN NEB SHORTNESS OF BREATH 12/04/24 13:30 Ipratropium [place] (Atrovent Medneb) 0.5 mg Q4HPRN PRN NEB SHORTNESS OF BREATH 12/04/24 14:15 Vital Signs Vital Signs Date Time Temp Pulse Resp B/P (MAP) Pulse Ox O2 Delivery O2 Flow Rate FiO2 12/04/24 15:46 94 16 137/81 (99) 100 12/04/24 14:12 99.3 0.0 21 99.3 12/04/24 09:44 Room Air* Physical Exam GEN: Elderly female in no acute distress. Alert. HEENT: Normocephalic atraumatic. Moist mucous membranes. Anicteric sclerae. CV: RRR Respiratory: Coarse breath sounds ABD: Obese abdomen with the right lower quadrant stoma with leaking around the stoma bag. There is diffuse surrounding erythema of the skin around the stoma with loss of epidermis with serosanguineous drainage and tenderness to palpation. Labs/Diagnostic Data Labs Test 12/04/24 12:05 12/04/24 07:35 12/04/24 04:15 12/03/24 21:18 Range/Units Urine Color Light-yellow Yellow Urine Clarity Clear Clear Urine pH 6.0 5.0-9.0 Urine Specific [place] 1.023 1.001-1.035 Urine Protein Trace H Negative Urine Ketones Negative Negative Urine Blood Negative Negative /uL Urine Nitrite Negative Negative Urine Bilirubin Negative Negative Urine Urobilinogen Normal Negative mg/dL Urine Leukocyte Esterase Trace Negative /uL Urine RBC 2 0 - 4 /hpf Urine WBC 2 0 - 5 /hpf Urine Squamous Epithelial Cells Few <5 /hpf Urine Bacteria None seen None Seen /hpf Urine Glucose Normal Normal mg/dL Urine Opiates Screen Pos NEGATIVE Urine Fentanyl Screen Neg NEGATIVE Urine Barbiturates Screen Neg NEGATIVE Urine Phencyclidine Screen Neg NEGATIVE Urine Amphetamines Screen Neg NEGATIVE Urine Benzodiazepines Screen Neg NEGATIVE Urine Cocaine Screen Neg NEGATIVE Urine Cannabinoids Screen Neg NEGATIVE Influenza Type A Antigen Negative Negative Influenza Type B Antigen Negative Negative SARS-CoV-2 Antigen (Rapid) Negative NEGATIVE White Blood Count 14.5 H 4.4-10.8 10^3/uL Red Blood Count 4.58 4.0-5.20 10^6/uL Hemoglobin 14.4 12.2-16.2 g/dL Hematocrit 43.5 36.0-46.0 % Mean Corpuscular Volume 95.1 80.0-100.0 fL Mean Corpuscular Hemoglobin 31.5 28.0-32.0 pg Mean Corpuscular Hemoglobin Concent 33.1 32.0-36.0 g/dL Red Cell Distribution Width 13.3 11.8-14.3 % Platelet Count 136 L 140-450 10^3/uL Mean Platelet Volume 10.1 6.9-10.8 fL Neutrophils (%) (Auto) 80.1 H 37.0-80.0 % Lymphocytes (%) (Auto) 10.1 10.0-50.0 % Monocytes (%) (Auto) 7.7 0.0-12.0 % Eosinophils (%) (Auto) 1.5 0.0-7.0 % Basophils (%) (Auto) 0.6 0.0-2.0 % Neutrophils # (Auto) 11.6 H 1.6-8.6 10 ^3/uL Lymphocytes # (Auto) 1.5 0.4-5.4 10 ^3/uL Monocytes # (Auto) 1.1 0-1.3 10 ^3/uL Eosinophils # (Auto) 0.2 0-0.8 10 ^3/uL Basophils # (Auto) 0.1 0-0.2 10 ^3/uL Nucleated Red Blood Cells 0.1 % Erythrocyte Sedimentation Rate 2 0-20 mm/hr Sodium Level 130 L 136-145 mmol/L Potassium Level 3.7 3.5-5.1 mmol/L Chloride Level 103 98-107 mmol/L Carbon Dioxide Level 18 L 20-31 mmol/L Anion Gap 9 5-15 Blood Urea Nitrogen 18 9-23 mg/dL Creatinine 1.27 H 0.550-1.02 mg/dL Glomerular Filtration Rate Calc 48 >90 mL/min BUN/Creatinine Ratio 14.2 10.0-20.0 Serum Glucose 235 H 74-106 mg/dL Lactic Acid Level 3.0 *H 0.4-2.0 mmol/L Calcium Level 8.8 8.7-10.4 mg/dL Total Bilirubin 0.9 0.2-1.0 mg/dL Aspartate Amino Transferase (AST) 50 H 13-40 U/L Alanine Aminotransferase (ALT) 43 H 7-40 U/L Alkaline Phosphatase 143 H 46-116 U/L Total Protein 5.8 5.7-8.2 g/dL Albumin 3.2 3.2-4.8 g/dL Reticulocyte Count (auto) 1.21 0.5-1.5 % Prothrombin Time 10.6 9.3-11.8 sec Prothrombin Time INR 1.00 0.9-1.15 Activated Partial Thromboplast Time 22.7 L 24.5-34.5 SEC Lactate Dehydrogenase 243 120-246 U/L Troponin I High Sensitivity 4 </=34 ng/L C-Reactive Protein High Sensitivity 0.63 <1.0 mg/dL Assessment 1. Peristomal cellulitis Plan/Recommendation 1. Local wound care. No indication for acute surgical intervention at this time. Plan discussed with: Patient HANNAH BREWER MD Dec 04, 2024 17:03
[2024-12-04] MEDS ORDERED: VANCOMYCIN PER PHARMACY 0 MG IV SCH (18:30)
[2024-12-04] MEDS: FLUCONAZOLE 200MG/100ML 100 ML IV SCH (20:56)
[2024-12-04] MEDS: VANCOMYCIN 1GM/250mL NS or D5W KIT IV SCH (22:46)
[2024-12-04] MEDS: QUEtiapine FUMARATE 100 MG TAB PO SCH (23:05)
[2024-12-04] MEDS: traZODone HCL 50 MG TAB PO SCH (23:05)
[2024-12-04 23:11] VITALS: O2SAT 100
[2024-12-04] MEDS: VANCOMYCIN 1GM/250ML KIT 250 ML IV ONE (23:26)
[2024-12-05] MEDS: CEFEPIME 2GM/50ML NS 50 ML IV SCH (00:15)
[2024-12-05 07:45] LABS: Basophils # (auto) 0 10 ^3/uL (0-0.2); Basophils % (auto) 0.4 % (0.0-2.0); Eosinophils # (auto) 0.2 10 ^3/uL (0-0.8); Eosinophils % (auto) 3.2 % (0.0-7.0); Hematocrit 33.9 % (36.0-46.0); Hemoglobin 11.2 g/dL (12.2-16.2); Lymphocytes # (auto) 0.6 10 ^3/uL (0.4-5.4); Lymphocytes % (auto) 13.2 % (10.0-50.0); Mean Corpuscular Hemoglobin 31.7 pg (28.0-32.0); Mean Corpuscular Hgb Conc. 33.2 g/dL (32.0-36.0); Mean Corpuscular Volume 95.5 fL (80.0-100.0); Monocytes # (auto) 0.5 10 ^3/uL (0-1.3); Monocytes % (auto) 9.7 % (0.0-12.0); Neutrophils # (auto) 3.6 10 ^3/uL (1.6-8.6); Neutrophils % (auto) 73.5 % (37.0-80.0); Nucleated Red Blood Cells % 0.1 %; Platelet Count (auto) 78 10^3/uL (140-450); Red Blood Cells 3.55 10^6/uL (4.0-5.20); Red Cell Distribution Width 13.1 % (11.8-14.3); White Blood Cell 4.9 10^3/uL (4.4-10.8)
[2024-12-05 08:07] LABS: Anion Gap 8 (5-15); Sodium 137 mmol/L (136-145)
[2024-12-05 08:13] LABS: BUN/Creatinine Ratio 9.7 (10.0-20.0)
[2024-12-05 08:18] LABS: Blood Urea Nitrogen 9 mg/dL (9-23); Calcium 7.5 mg/dL (8.7-10.4); Carbon Dioxide 18 mmol/L (20-31); Chloride 111 mmol/L (98-107); Glucose 120 mg/dL (74-106); Potassium 3.3 mmol/L (3.5-5.1)
[2024-12-05] MEDS: FLUCONAZOLE 200MG/100ML 100 ML IV SCH (12:55)
--- NOTE | 2024-12-05 15:15 | DVHPNRES ---
Progress Note Date Seen: Dec 05, 2024 Resident Creating Document: CRISTOPHER ZULUAGA RESIDENT Medical Necessity Reason Pt with a Central, PICC or Fol: No Subjective Review of Systems Patient is a 59-year-old female with past medical history of ischemic colitis s/p hemicolectomy with a colostomy bag, mesenteric thrombosis in 2021, COPD, CHF, CKD stage 3, type 2 diabetes, major depressive disorder, dyslipidemia on home oxygen 2 L, who came in due to peristomal erythema, swelling due to which she was unable to attach the ostomy bag. Patient notes that these symptoms have been ongoing since discharge from her previous hospitalization 2 weeks ago. Of note, 2 weeks ago patient was admitted to the [facility], [place] for similar symptoms which were managed and she was discharged home with p.o. antibiotic. At baseline patient uses wheelchair and walker to ambulate. Past surgical history: Hemicolectomy colostomy bag, 4 times section, hysterectomy, cholecystectomy, left elbow surgery, back surgery Home medications: Albuterol, aripiprazole, aspirin, fluoxetine, furosemide, gabapentin, insulin, lisinopril, Protonix, prednisolone, quetiapine, trazodone, zolpidem Past Hospitalization: 2 weeks ago for similar symptoms at the [facility] [place] Social & Personal history: Patient lives alone and her daughter is her in-home support service. Patient has a strong smoking history of 3 pack per day for 40 years, now has cut down to 3-4 cigarettes per day. Denies using alcohol or drugs. Allergies: Levofloxacin (breathing difficulty), morphine (itching) Patient seen and examined at bedside. Patient is alert and oriented to time, place person and responding to all questions. Notes increased appetite, patient also requesting midline. Objective vital signs Vital Sign Date Time Temp Pulse Resp B/P (MAP) Pulse Ox O2 Delivery O2 Flow Rate FiO2 12/05/24 15:02 81 19 103/75 12/05/24 05:08 99 12/04/24 23:11 Room Air 0.0 12/04/24 23:11 21 12/04/24 14:12 99.3 99.3 Total Intake and Output 12/04/24 12/04/24 12/05/24 15:00 23:00 07:00 Intake Total 1125 ml 450 ml Balance 1125 ml 450 ml medications Current Medications Medications Dose Ordered Sig/Santosh Route Start Time Stop Time Status Last Admin Dose Admin Ondansetron HCl 4 mg Q4HPRN PRN IV 12/04/24 01:00 12/04/24 10:19 4 MG Quetiapine Fumarate 400 mg HS PO 12/04/24 22:00 12/04/24 23:05 400 MG Trazodone HCl 50 mg HS PO 12/04/24 22:00 12/04/24 23:05 50 MG Fluoxetine HCl 40 mg DAILY PO 12/04/24 10:00 12/05/24 12:55 40 MG Diagnostic Test (Pha) 1 strip IQ4HR 12/04/24 04:00 12/05/24 12:00 1 STRIP Insulin Human Regular IQ4HR SC 12/04/24 04:00 12/05/24 12:00 2 UNITS Dextrose 50 ml UD PRN IV 12/04/24 01:30 Morphine Sulfate 2 mg Q4HPRN PRN IV 12/04/24 02:45 12/05/24 15:02 2 MG Enoxaparin Sodium 80 mg Q12HR SC 12/04/24 10:00 12/05/24 12:55 80 MG Acetaminophen 650 mg Q6HP PRN PO 12/04/24 09:45 Cefepime HCl 50 ml @ 12.5 mls/hr Q8HR IV 12/04/24 22:00 12/05/24 00:15 12.5 MLS/HR Metronidazole 100 ml @ 100 mls/hr Q8HR IV 12/04/24 14:00 12/05/24 06:55 100 MLS/HR Albuterol 2.5 mg Q4HPRN PRN NEB 12/04/24 13:30 Ipratropium [place] 0.5 mg Q4HPRN PRN NEB 12/04/24 14:15 Vancomycin HCl 0 ml @ 0 mls/hr UD IV 12/04/24 18:30 Fluconazole 100 ml @ 100 mls/hr 10,11 IV 12/05/24 10:00 12/05/24 14:54 100 MLS/HR Examination General Appearance: Cooperative. Well developed. Well nourished. NAD Head Exam: Normal inspection Neck Exam: Normal inspection. Non-tender. Normal alignment Pulmonary/Respiratory: Chest non-tender. Clear bilateral breath sounds, no crackles, wheezing. Cardiovascular/Chest: Regular rate and rhythm. No murmurs. No JVD. Peripheral Pulses: 2+ Radial (R). 2+ Radial (L). 2+ Pedal (R). 2+ Pedal (L) Abdominal Exam: Normal bowel sounds. Soft. Ostomy site with a colostomy bag draining watery greenish drainage, swollen ostomy site with erythema, no purulence, no visible veins, Nontender. No hepatospenomegaly. No masses Ankle Exam: Negative ankle edema Lower extremities: Negative lower extremity edema. Left lower extremity greater in size than right lower extremity Neuro/Mental Status: A&O x4. Coherent. Thoughts/Psych: Normal thought pattern. Appropriate mood and affect. Good judgement and insight Skin Exam: Normal inspection. Normal color. Warm. Dry laboratory and microbiology Laboratory Tests 12/05/24 07:05 Test 12/05/24 07:05 Range/Units Serum Glucose 120 H 74-106 mg/dL Microbiology Date/Time Source Procedure Growth Status 12/04/24 14:00 Blood Blood Culture - Preliminary NO GROWTH AFTER 24 HOURS OF INCUBATION. Resulted 12/04/24 13:00 Abdomen Gram Stain - Final Resulted 12/04/24 13:00 Abdomen Wound Culture - Preliminary Resulted Labs and/or images reviewed: Labs reviewed by me, Image(s) reviewed by me Problem List/Assessment/Plan Problem List/Assessment/Plan Peristomal skin infection: Fungal versus erysipelas Sepsis due to above S/p ostomy - CT abdomen pelvis: Masslike consolidation in the right lung base again noted, possibly rounded atelectasis. Associated trace right pleural effusion. Diffuse hepatic steatosis. Postsurgical changes in the bowel with the right lower quadrant ileostomy in the left lower quadrant colostomy. Mildly dilated loops of small bowel are nonspecific. Ventral hernia containing bowel. Small likely scarring along the old incision. No definite cellulitis or abscess. Clinical correlation and continued follow-up is recommended. Consider further evaluation with ultrasound. - IV vancomycin per pharmacy - IV cefepime, IV metronidazole Q 8 hours - ordered blood culture, wound culture with Gram staining and MRSA screen - surgery on board: No indications for acute intervention at this time Chronic respiratory failure, on home O2 2 L COPD exacerbation - CXR: No abnormality detected on this study. - ipratropium and albuterol med nebs Questionable KARO on CKD stage 3 - monitor Left lower extremity proximal DVT (left common femoral vein and left greater saphenous vein) Hypercoagulable state secondary to unknown cause? History of mesenteric vein thrombosis 2021 which led to ischemic colitis, s/p hemicolectomy - lower extremity Doppler: Positive DVT in the left common femoral vein and greater saphenous vein - 80 mg Lovenox b.i.d. - consider coagulable workup in the outpatient setting Type 2 diabetes, insulin dependent - mild sliding scale insulin Heart failure with preserved ejection fraction, currently stable - monitor Major depressive disorder - resumed home med fluoxetine 40 mg p.o. daily - quetiapine 400 mg - trazodone 50 mg Hypokalemia - repleted with p.o. potassium 50 mEq Goals of care: Full code, discussed for >16 minutes on 12/04/2024 Plan discussed with patient Plan discussed with Dr. Pittman Plan discussed with: Patient, Other (RN) My Orders My Orders Orders - CRISTOPHER ZULUAGA Procedure Category Date Status Time Vancomycin Per PHA 12/04/24 In Process Pharmacy 18:30 Fluconazole PHA 12/05/24 In Process 200mg/100ml (Diflucan 10:00 Electrocardigram EKG 12/04/24 Logged 18:18 Complete Blood Count LAB 12/06/24 Verified 04:00 Creatinine LAB 12/06/24 Verified 04:00 Vancomycin,Random LAB 12/06/24 Verified 04:00 Potassium Effervesent PHA 12/05/24 Logged Tab (Klor-Con/Ef) 15:15 Date of Service: Dec 05, 2024 Billing Provider: PUJA PITTMAN MD Common Visit Codes: [id number] INP/OBS CARE(HIGH) CRISTOPHER ZULUAGA Dec 05, 2024 15:15 PUJA PITTMAN MD Dec 05, 2024 20:26
[2024-12-05 16:34] VITALS: BP 101/62; PULSE 76; RESP 19; TEMP 97.9; O2SAT 99
[2024-12-05 16:39] VITALS: PULSE 76; RESP 20; O2SAT 99
[2024-12-05 17:04] VITALS: BP 101/60; PULSE 73; RESP 16; TEMP 97.9; O2SAT 100
[2024-12-05] MEDS: POTASSIUM EFFERVESENT TAB 25 MEQ PO ONE (18:06)
[2024-12-05 19:00] VITALS: O2SAT 99
[2024-12-05 20:00] VITALS: PULSE 89; RESP 18; O2SAT 100
[2024-12-05 21:00] VITALS: BP 103/57; PULSE 89; RESP 16; TEMP 98.3; O2SAT 100
[2024-12-06] VITALS (9 sets, daily range): BP systolic 98–111; BP diastolic 59–74; PULSE 77–90; RESP 16–20; TEMP 97.4–98.5; O2SAT 96–100
[2024-12-06 07:24] LABS: Basophils # (auto) 0 10 ^3/uL (0-0.2); Basophils % (auto) 0.9 % (0.0-2.0); Eosinophils # (auto) 0.1 10 ^3/uL (0-0.8); Eosinophils % (auto) 3.8 % (0.0-7.0); Hematocrit 38.7 % (36.0-46.0); Hemoglobin 12.9 g/dL (12.2-16.2); Lymphocytes # (auto) 0.7 10 ^3/uL (0.4-5.4); Lymphocytes % (auto) 22.4 % (10.0-50.0); Mean Corpuscular Hemoglobin 31.8 pg (28.0-32.0); Mean Corpuscular Hgb Conc. 33.3 g/dL (32.0-36.0); Mean Corpuscular Volume 95.6 fL (80.0-100.0); Monocytes # (auto) 0.3 10 ^3/uL (0-1.3); Monocytes % (auto) 10.1 % (0.0-12.0); Neutrophils % (auto) 62.8 % (37.0-80.0); Nucleated Red Blood Cells % 0.3 %; Platelet Count (auto) 90 10^3/uL (140-450); Red Blood Cells 4.05 10^6/uL (4.0-5.20); Red Cell Distribution Width 13.2 % (11.8-14.3); White Blood Cell 3.2 10^3/uL (4.4-10.8)
[2024-12-06 07:49] LABS: Potassium 4.1 mmol/L (3.5-5.1); Sodium 137 mmol/L (136-145)
[2024-12-06 07:50] LABS: Anion Gap 8 (5-15); Calcium 8.6 mg/dL (8.7-10.4); Carbon Dioxide 21 mmol/L (20-31); Chloride 108 mmol/L (98-107)
[2024-12-06 07:55] LABS: BUN/Creatinine Ratio 6.4 (10.0-20.0); Glucose 94 mg/dL (74-106)
[2024-12-06 08:03] LABS: Blood Urea Nitrogen 7 mg/dL (9-23)
[2024-12-06] MEDS: VANCOMYCIN 1GM/250ML KIT 250 ML IV ONE (10:30)
--- NOTE | 2024-12-06 16:40 | DVHPNRES ---
Progress Note Date Seen: Dec 06, 2024 Resident Creating Document: CRISTOPHER ZULUAGA RESIDENT Medical Necessity Reason Pt with a Central, PICC or Fol: No Subjective Review of Systems Patient is a 59-year-old female with past medical history of ischemic colitis s/p hemicolectomy with a colostomy bag, mesenteric thrombosis in 2021, COPD, CHF, CKD stage 3, type 2 diabetes, major depressive disorder, dyslipidemia on home oxygen 2 L, who came in due to peristomal erythema, swelling due to which she was unable to attach the ostomy bag. Patient notes that these symptoms have been ongoing since discharge from her previous hospitalization 2 weeks ago. Of note, 2 weeks ago patient was admitted to the [facility] for similar symptoms which were managed and she was discharged home with p.o. antibiotic. At baseline patient uses wheelchair and walker to ambulate. Past surgical history: Hemicolectomy colostomy bag, 4 times section, hysterectomy, cholecystectomy, left elbow surgery, back surgery Home medications: Albuterol, aripiprazole, aspirin, fluoxetine, furosemide, gabapentin, insulin, lisinopril, Protonix, prednisolone, quetiapine, trazodone, zolpidem Past Hospitalization: 2 weeks ago for similar symptoms at the [facility] Social & Personal history: Patient lives alone and her daughter is her in-home support service. Patient has a strong smoking history of 3 pack per day for 40 years, now has cut down to 3-4 cigarettes per day. Denies using alcohol or drugs. Allergies: Levofloxacin (breathing difficulty), morphine (itching) Patient seen and examined at bedside. Patient is alert and oriented to time, place person and responding to all questions. Notes increased appetite Objective vital signs Vital Sign Date Time Temp Pulse Resp B/P (MAP) Pulse Ox O2 Delivery O2 Flow Rate FiO2 12/06/24 12:39 85 18 107/67 12/06/24 11:53 97.7 96 97.7 12/06/24 08:05 Room Air* 0 21 Total Intake and Output 12/05/24 12/05/24 12/06/24 14:59 22:59 06:59 Intake Total 100 ml 300 ml 1150 ml Output Total 1450 ml Balance 100 ml 300 ml -300 ml medications Current Medications Medications Dose Ordered Sig/Santosh Route Start Time Stop Time Status Last Admin Dose Admin Ondansetron HCl 4 mg Q4HPRN PRN IV 12/04/24 01:00 12/04/24 10:19 4 MG Quetiapine Fumarate 400 mg HS PO 12/04/24 22:00 12/05/24 21:39 400 MG Trazodone HCl 50 mg HS PO 12/04/24 22:00 12/05/24 21:39 50 MG Fluoxetine HCl 40 mg DAILY PO 12/04/24 10:00 12/06/24 10:29 40 MG Diagnostic Test (Pha) 1 strip IQ4HR 12/04/24 04:00 12/06/24 16:16 1 STRIP Insulin Human Regular IQ4HR SC 12/04/24 04:00 12/06/24 16:24 4 UNITS Dextrose 50 ml UD PRN IV 12/04/24 01:30 Morphine Sulfate 2 mg Q4HPRN PRN IV 12/04/24 02:45 12/06/24 12:09 2 MG Enoxaparin Sodium 80 mg Q12HR SC 12/04/24 10:00 12/06/24 10:29 80 MG Acetaminophen 650 mg Q6HP PRN PO 12/04/24 09:45 Cefepime HCl 50 ml @ 12.5 mls/hr Q8HR IV 12/04/24 22:00 12/06/24 14:56 12.5 MLS/HR Metronidazole 100 ml @ 100 mls/hr Q8HR IV 12/04/24 14:00 12/06/24 13:35 100 MLS/HR Vancomycin HCl 0 ml @ 0 mls/hr UD IV 12/04/24 18:30 Fluconazole 100 ml @ 100 mls/hr 10,11 IV 12/05/24 10:00 12/06/24 11:02 100 MLS/HR Examination General Appearance: Cooperative. Well developed. Well nourished. NAD Head Exam: Normal inspection Neck Exam: Normal inspection. Non-tender. Normal alignment Pulmonary/Respiratory: Chest non-tender. Clear bilateral breath sounds, no crackles, wheezing. Cardiovascular/Chest: Regular rate and rhythm. No murmurs. No JVD. Peripheral Pulses: 2+ Radial (R). 2+ Radial (L). 2+ Pedal (R). 2+ Pedal (L) Abdominal Exam: Normal bowel sounds. Soft. Ostomy site with a colostomy bag draining watery greenish drainage, swollen ostomy site with erythema, no purulence, improving. no visible veins, Nontender. No hepatospenomegaly. No masses Ankle Exam: Negative ankle edema Lower extremities: Negative lower extremity edema. Left lower extremity greater in size than right lower extremity Neuro/Mental Status: A&O x4. Coherent. Thoughts/Psych: Normal thought pattern. Appropriate mood and affect. Good judgement and insight Skin Exam: Normal inspection. Normal color. Warm. Dry laboratory and microbiology Laboratory Tests 12/06/24 06:49 Test 12/06/24 06:49 Range/Units Serum Glucose 94 74-106 mg/dL Microbiology Date/Time Source Procedure Growth Status 12/04/24 14:00 Blood Blood Culture - Preliminary NO GROWTH AFTER 48 HOURS OF INCUBATION. Resulted 12/04/24 13:00 Abdomen Gram Stain - Final Resulted 12/04/24 13:00 Wound Culture - Preliminary Presumptive [place] albicans Resulted Problem List/Assessment/Plan Problem List/Assessment/Plan Peristomal skin infection: Fungal versus erysipelas Sepsis due to above S/p ostomy - CT abdomen pelvis: Masslike consolidation in the right lung base again noted, possibly rounded atelectasis. Associated trace right pleural effusion. Diffuse hepatic steatosis. Postsurgical changes in the bowel with the right lower quadrant ileostomy in the left lower quadrant colostomy. Mildly dilated loops of small bowel are nonspecific. Ventral hernia containing bowel. Small likely scarring along the old incision. No definite cellulitis or abscess. Clinical correlation and continued follow-up is recommended. Consider further evaluation with ultrasound. - IV vancomycin per pharmacy - IV cefepime, IV metronidazole Q 8 hours - ordered blood culture, wound culture with Gram staining and MRSA screen - surgery on board: No indications for acute intervention at this time - advanced to full liquid diet - PT evaluation requested Chronic respiratory failure, on home O2 2 L COPD exacerbation - CXR: No abnormality detected on this study. - ipratropium and albuterol med nebs Questionable KARO on CKD stage 3 - monitor Left lower extremity proximal DVT (left common femoral vein and left greater saphenous vein) Hypercoagulable state secondary to unknown cause? History of mesenteric vein thrombosis 2021 which led to ischemic colitis, s/p hemicolectomy - lower extremity Doppler: Positive DVT in the left common femoral vein and greater saphenous vein - 80 mg Lovenox b.i.d. - consider coagulable workup in the outpatient setting Type 2 diabetes, insulin dependent - mild sliding scale insulin Heart failure with preserved ejection fraction, currently stable - monitor Major depressive disorder - resumed home med fluoxetine 40 mg p.o. daily - quetiapine 400 mg - trazodone 50 mg Hypokalemia - repleted with p.o. potassium 50 mEq Goals of care: Full code, discussed for >16 minutes on 12/04/2024 Plan discussed with patient Plan discussed with Dr. Pittman Plan discussed with: Patient, Other (RN) My Orders My Orders Orders - CRISTOPHER ZULUAGA RESIDENT Procedure Category Date Status Time Vancomycin,Random LAB 12/07/24 Verified 04:00 Basic Metabolic Panel LAB 12/07/24 Verified 04:00 Pt Request For Service PT 12/06/24 Logged 13:53 Full Liq Diet DIET 12/06/24 Transmitted Dinner Date of Service: Dec 06, 2024 Billing Provider: PUJA PITTMAN MD Common Visit Codes: [id number] INP/OBS CARE(HIGH) CRISTOPHER ZULUAGA Dec 06, 2024 16:40 PUJA PITTMAN MD Dec 13, 2024 17:27
[2024-12-07] VITALS (8 sets, daily range): BP systolic 90–115; BP diastolic 58–68; PULSE 63–109; RESP 14–18; TEMP 97.9–98.3; O2SAT 95–100
--- NOTE | 2024-12-07 06:24 | DVHPNRES ---
Progress Note Date Seen: Dec 07, 2024 Resident Creating Document: CRISTOPHER ZULUAGA RESIDENT Medical Necessity Reason Pt with a Central, PICC or Fol: No Subjective Review of Systems Patient is a 59-year-old female with past medical history of ischemic colitis s/p hemicolectomy with a colostomy bag, mesenteric thrombosis in 2021, COPD, CHF, CKD stage 3, type 2 diabetes, major depressive disorder, dyslipidemia on home oxygen 2 L, who came in due to peristomal erythema, swelling due to which she was unable to attach the ostomy bag. Patient notes that these symptoms have been ongoing since discharge from her previous hospitalization 2 weeks ago. Of note, 2 weeks ago patient was admitted to the [facility] for similar symptoms which were managed and she was discharged home with p.o. antibiotic. At baseline patient uses wheelchair and walker to ambulate. Past surgical history: Hemicolectomy colostomy bag, 4 times section, hysterectomy, cholecystectomy, left elbow surgery, back surgery Home medications: Albuterol, aripiprazole, aspirin, fluoxetine, furosemide, gabapentin, insulin, lisinopril, Protonix, prednisolone, quetiapine, trazodone, zolpidem Past Hospitalization: 2 weeks ago for similar symptoms at the [facility] Social & Personal history: Patient lives alone and her daughter is her in-home support service. Patient has a strong smoking history of 3 pack per day for 40 years, now has cut down to 3-4 cigarettes per day. Denies using alcohol or drugs. Allergies: Levofloxacin (breathing difficulty), morphine (itching) Patient seen and examined at bedside. Patient is alert and oriented to time, place person and responding to all questions. Notes increased appetite Objective vital signs Vital Sign Date Time Temp Pulse Resp B/P (MAP) Pulse Ox O2 Delivery O2 Flow Rate FiO2 12/07/24 05:00 97.9 64 18 95/65 (75) 100 97.9 12/06/24 20:00 Room Air* 0 21 Total Intake and Output 12/06/24 12/06/24 12/07/24 15:00 23:00 07:00 Intake Total 300 ml 1200 ml Output Total 700 ml 400 ml Balance 300 ml 500 ml -400 ml medications Current Medications Medications Dose Ordered Sig/Santosh Route Start Time Stop Time Status Last Admin Dose Admin Ondansetron HCl 4 mg Q4HPRN PRN IV 12/04/24 01:00 12/04/24 10:19 4 MG Quetiapine Fumarate 400 mg HS PO 12/04/24 22:00 12/06/24 22:00 400 MG Trazodone HCl 50 mg HS PO 12/04/24 22:00 12/06/24 21:59 50 MG Fluoxetine HCl 40 mg DAILY PO 12/04/24 10:00 12/06/24 10:29 40 MG Diagnostic Test (Pha) 1 strip IQ4HR 12/04/24 04:00 12/07/24 04:26 1 STRIP Insulin Human Regular IQ4HR SC 12/04/24 04:00 12/07/24 04:30 2 UNITS Dextrose 50 ml UD PRN IV 12/04/24 01:30 Morphine Sulfate 2 mg Q4HPRN PRN IV 12/04/24 02:45 12/07/24 02:32 2 MG Enoxaparin Sodium 80 mg Q12HR SC 12/04/24 10:00 12/06/24 10:29 80 MG Acetaminophen 650 mg Q6HP PRN PO 12/04/24 09:45 Cefepime HCl 50 ml @ 12.5 mls/hr Q8HR IV 12/04/24 22:00 12/07/24 06:05 12.5 MLS/HR Metronidazole 100 ml @ 100 mls/hr Q8HR IV 12/04/24 14:00 12/07/24 06:06 100 MLS/HR Vancomycin HCl 0 ml @ 0 mls/hr UD IV 12/04/24 18:30 Fluconazole 100 ml @ 100 mls/hr 10,11 IV 12/05/24 10:00 12/06/24 11:02 100 MLS/HR Examination General Appearance: Cooperative. Well developed. Well nourished. NAD Head Exam: Normal inspection Neck Exam: Normal inspection. Non-tender. Normal alignment Pulmonary/Respiratory: Chest non-tender. Clear bilateral breath sounds, no crackles, wheezing. Cardiovascular/Chest: Regular rate and rhythm. No murmurs. No JVD. Peripheral Pulses: 2+ Radial (R). 2+ Radial (L). 2+ Pedal (R). 2+ Pedal (L) Abdominal Exam: Normal bowel sounds. Soft. Ostomy site with a colostomy bag draining watery greenish drainage, swollen ostomy site with erythema, no purulence, improving. no visible veins, Nontender. No hepatospenomegaly. No masses Ankle Exam: Negative ankle edema Lower extremities: Negative lower extremity edema. Left lower extremity greater in size than right lower extremity Neuro/Mental Status: A&O x4. Coherent. Thoughts/Psych: Normal thought pattern. Appropriate mood and affect. Good judgement and insight Skin Exam: Normal inspection. Normal color. Warm. Dry laboratory and microbiology Laboratory Tests 12/06/24 06:49 Test 12/06/24 06:49 Range/Units Serum Glucose 94 74-106 mg/dL Microbiology Date/Time Source Procedure Growth Status 12/04/24 14:00 Blood Blood Culture - Preliminary NO GROWTH AFTER 48 HOURS OF INCUBATION. Resulted 12/04/24 13:00 Abdomen Gram Stain - Final Resulted 12/04/24 13:00 Wound Culture - Preliminary Presumptive Deedee albicans Resulted Labs and/or images reviewed: Labs reviewed by me, Image(s) reviewed by me Problem List/Assessment/Plan Problem List/Assessment/Plan Peristomal skin infection: Fungal versus erysipelas Sepsis due to above S/p ostomy - CT abdomen pelvis: Masslike consolidation in the right lung base again noted, possibly rounded atelectasis. Associated trace right pleural effusion. Diffuse hepatic steatosis. Postsurgical changes in the bowel with the right lower quadrant ileostomy in the left lower quadrant colostomy. Mildly dilated loops of small bowel are nonspecific. Ventral hernia containing bowel. Small likely scarring along the old incision. No definite cellulitis or abscess. Clinical correlation and continued follow-up is recommended. Consider further evaluation with ultrasound. - IV vancomycin per pharmacy - IV cefepime, IV metronidazole Q 8 hours - ordered blood culture, wound culture with Gram staining and MRSA screen - surgery on board: No indications for acute intervention at this time - advanced to full liquid diet - PT evaluation requested Chronic respiratory failure, on home O2 2 L COPD exacerbation - CXR: No abnormality detected on this study. - ipratropium and albuterol med nebs Questionable KARO on CKD stage 3 - monitor Left lower extremity proximal DVT (left common femoral vein and left greater saphenous vein) Hypercoagulable state secondary to unknown cause? History of mesenteric vein thrombosis 2021 which led to ischemic colitis, s/p hemicolectomy - lower extremity Doppler: Positive DVT in the left common femoral vein and greater saphenous vein - 80 mg Lovenox b.i.d. - consider coagulable workup in the outpatient setting Type 2 diabetes, insulin dependent - mild sliding scale insulin Heart failure with preserved ejection fraction, currently stable - monitor Major depressive disorder - resumed home med fluoxetine 40 mg p.o. daily - quetiapine 400 mg - trazodone 50 mg Hypokalemia - repleted with p.o. potassium 50 mEq Goals of care: Full code, discussed for >16 minutes on 12/04/2024 Plan discussed with patient Plan discussed with Dr. Pittman Plan discussed with: Patient, Other (RN) My Orders My Orders Orders - CRISTOPHER ZULUAGA RESIDENT Procedure Category Date Status Time Vancomycin,Random LAB 12/07/24 Logged 04:00 Basic Metabolic Panel LAB 12/07/24 Logged 04:00 Pt Request For Service PT 12/06/24 Logged 13:53 Full Liq Diet DIET 12/06/24 Transmitted Dinner Complete Blood Count LAB 12/07/24 Logged 04:00 Date of Service: Dec 07, 2024 Billing Provider: PUJA PITTMAN MD Common Visit Codes: [id number] INP/OBS CARE(HIGH) CRISTOPHER ZULUAGA Dec 07, 2024 06:24 PUJA PITTMAN MD Dec 13, 2024 17:27
[2024-12-07 07:15] LABS: Basophils # (auto) 0 10 ^3/uL (0-0.2); Basophils % (auto) 0.5 % (0.0-2.0); Eosinophils # (auto) 0.1 10 ^3/uL (0-0.8); Eosinophils % (auto) 3.2 % (0.0-7.0); Hemoglobin 12.4 g/dL (12.2-16.2); Lymphocytes # (auto) 0.6 10 ^3/uL (0.4-5.4); Lymphocytes % (auto) 16.5 % (10.0-50.0); Mean Corpuscular Hemoglobin 31.9 pg (28.0-32.0); Mean Corpuscular Hgb Conc. 33.6 g/dL (32.0-36.0); Monocytes # (auto) 0.4 10 ^3/uL (0-1.3); Monocytes % (auto) 9.1 % (0.0-12.0); Neutrophils # (auto) 2.7 10 ^3/uL (1.6-8.6); Neutrophils % (auto) 70.7 % (37.0-80.0); Nucleated Red Blood Cells % 0.1 %; Platelet Count (auto) 96 10^3/uL (140-450); Red Blood Cells 3.89 10^6/uL (4.0-5.20); Red Cell Distribution Width 13.2 % (11.8-14.3); White Blood Cell 3.9 10^3/uL (4.4-10.8)
[2024-12-07 07:26] LABS: Anion Gap 7 (5-15); Calcium 8.8 mg/dL (8.7-10.4); Carbon Dioxide 22 mmol/L (20-31); Chloride 106 mmol/L (98-107); Potassium 3.8 mmol/L (3.5-5.1)
[2024-12-07 07:31] LABS: Sodium 135 mmol/L (136-145)
[2024-12-07 07:32] LABS: Glucose 104 mg/dL (74-106)
[2024-12-07 07:33] LABS: BUN/Creatinine Ratio 4.5 (10.0-20.0); Blood Urea Nitrogen < 5 mg/dL (9-23)
[2024-12-07] MEDS: VANCOMYCIN 1GM/250ML KIT 250 ML IV SCH (10:24)
[2024-12-07] MEDS: SODIUM CHLORIDE 0.9% 1,000 ML IV ONE (18:30)
[2024-12-08] VITALS (8 sets, daily range): BP systolic 79–124; BP diastolic 53–90; PULSE 86–118; RESP 16–20; TEMP 97.8–98.8; O2SAT 96–98
[2024-12-08 08:23] LABS: Anion Gap 9 (5-15); Calcium 8.9 mg/dL (8.7-10.4); Potassium 3.8 mmol/L (3.5-5.1); Sodium 136 mmol/L (136-145)
[2024-12-08 08:29] LABS: Glucose 88 mg/dL (74-106)
[2024-12-08 08:32] LABS: BUN/Creatinine Ratio 4.5 (10.0-20.0); Blood Urea Nitrogen < 5 mg/dL (9-23); Carbon Dioxide 19 mmol/L (20-31); Chloride 108 mmol/L (98-107)
[2024-12-08] MEDS: OXYCODONE W/ ACETAMINOPHEN 5/325MG TABLET PO PRN (15:24)
--- NOTE | 2024-12-08 16:58 | DVHPNRES ---
Progress Note Date Seen: Dec 08, 2024 Resident Creating Document: CRISTOPHER ZULUAGA RESIDENT Medical Necessity Reason Pt with a Central, PICC or Fol: No Subjective Review of Systems Patient is a 59-year-old female with past medical history of ischemic colitis s/p hemicolectomy with a colostomy bag, mesenteric thrombosis in 2021, COPD, CKD stage 3, type 2 diabetes, major depressive disorder, dyslipidemia on home oxygen 2 L, who came in due to peristomal erythema, swelling due to which she was unable to attach the ostomy bag. Patient notes that these symptoms have been ongoing since discharge from her previous hospitalization 2 weeks ago. Of note, 2 weeks ago patient was admitted to the [facility] for similar symptoms which were managed and she was discharged home with p.o. antibiotic. At baseline patient uses wheelchair and walker to ambulate. Past surgical history: Hemicolectomy colostomy bag, 4 times section, hysterectomy, cholecystectomy, left elbow surgery, back surgery Home medications: Albuterol, aripiprazole, aspirin, fluoxetine, furosemide, gabapentin, insulin, lisinopril, Protonix, prednisolone, quetiapine, trazodone, zolpidem Past Hospitalization: 2 weeks ago for similar symptoms at the [facility] Social & Personal history: Patient lives alone and her daughter is her in-home support service. Patient has a strong smoking history of 3 pack per day for 40 years, now has cut down to 3-4 cigarettes per day. Denies using alcohol or drugs. Allergies: Levofloxacin (breathing difficulty), morphine (itching) Patient seen and examined at bedside. Patient is alert and oriented to time, place person and responding to all questions. Notes increased appetite Objective vital signs Vital Sign Date Time Temp Pulse Resp B/P (MAP) Pulse Ox O2 Delivery O2 Flow Rate FiO2 12/08/24 16:41 97.8 86 20 105/66 (79) 97 97.8 12/07/24 20:00 Room Air* 0 21 Total Intake and Output 12/07/24 12/07/24 12/08/24 15:00 23:00 07:00 Intake Total 750 ml 1200 ml 900 ml Output Total 450 ml 350 ml Balance 750 ml 750 ml 550 ml medications Current Medications Medications Dose Ordered Sig/Asntosh Route Start Time Stop Time Status Last Admin Dose Admin Ondansetron HCl 4 mg Q4HPRN PRN IV 12/04/24 01:00 12/07/24 10:28 4 MG Quetiapine Fumarate 400 mg HS PO 12/04/24 22:00 12/07/24 22:24 400 MG Trazodone HCl 50 mg HS PO 12/04/24 22:00 12/07/24 22:24 50 MG Fluoxetine HCl 40 mg DAILY PO 12/04/24 10:00 12/08/24 09:07 40 MG Diagnostic Test (Pha) 1 strip IQ4HR 12/04/24 04:00 12/08/24 12:22 1 STRIP Insulin Human Regular IQ4HR SC 12/04/24 04:00 12/08/24 12:22 2 UNITS Dextrose 50 ml UD PRN IV 12/04/24 01:30 Enoxaparin Sodium 80 mg Q12HR SC 12/04/24 10:00 12/07/24 22:26 80 MG Acetaminophen 650 mg Q6HP PRN PO 12/04/24 09:45 Cefepime HCl 50 ml @ 12.5 mls/hr Q8HR IV 12/04/24 22:00 12/08/24 14:14 12.5 MLS/HR Metronidazole 100 ml @ 100 mls/hr Q8HR IV 12/04/24 14:00 12/08/24 14:13 100 MLS/HR Vancomycin HCl 0 ml @ 0 mls/hr UD IV 12/04/24 18:30 Fluconazole 100 ml @ 100 mls/hr 10,11 IV 12/05/24 10:00 12/08/24 11:00 100 MLS/HR Vancomycin HCl 250 ml @ 250 mls/hr Q24H IV 12/07/24 10:00 12/08/24 09:08 250 MLS/HR Oxycodone/ Acetaminophen 1 tab Q8HP PRN PO 12/08/24 14:45 12/08/24 15:24 1 TAB Examination General Appearance: Cooperative. Well developed. Well nourished. NAD Head Exam: Normal inspection Neck Exam: Normal inspection. Non-tender. Normal alignment Pulmonary/Respiratory: Chest non-tender. Clear bilateral breath sounds, no crackles, wheezing. Cardiovascular/Chest: Regular rate and rhythm. No murmurs. No JVD. Peripheral Pulses: 2+ Radial (R). 2+ Radial (L). 2+ Pedal (R). 2+ Pedal (L) Abdominal Exam: Normal bowel sounds. Soft. Ostomy site with a colostomy bag draining watery greenish drainage, swollen ostomy site with erythema, no purulence, improving. no visible veins, Nontender. No hepatospenomegaly. No masses Ankle Exam: Negative ankle edema Lower extremities: Negative lower extremity edema. Left lower extremity greater in size than right lower extremity Neuro/Mental Status: A&O x4. Coherent. Thoughts/Psych: Normal thought pattern. Appropriate mood and affect. Good judgement and insight Skin Exam: Normal inspection. Normal color. Warm. Dry laboratory and microbiology Laboratory Tests 12/08/24 05:25 12/07/24 06:18 Test 12/08/24 05:25 Range/Units Serum Glucose 88 74-106 mg/dL Microbiology Date/Time Source Procedure Growth Status 12/04/24 14:00 Blood Blood Culture - Preliminary NO GROWTH AFTER 72 HOURS OF INCUBATION. Resulted 12/04/24 13:00 Abdomen Gram Stain - Final Resulted 12/04/24 13:00 Wound Culture - Preliminary Presumptive Deedee albicans Resulted Labs and/or images reviewed: Labs reviewed by me, Image(s) reviewed by me Problem List/Assessment/Plan Problem List/Assessment/Plan Peristomal skin infection: Fungal versus erysipelas Sepsis due to above S/p ostomy - CT abdomen pelvis: Masslike consolidation in the right lung base again noted, possibly rounded atelectasis. Associated trace right pleural effusion. Diffuse hepatic steatosis. Postsurgical changes in the bowel with the right lower quadrant ileostomy in the left lower quadrant colostomy. Mildly dilated loops of small bowel are nonspecific. Ventral hernia containing bowel. Small likely scarring along the old incision. No definite cellulitis or abscess. Clinical correlation and continued follow-up is recommended. Consider further evaluation with ultrasound. - IV vancomycin per pharmacy - IV cefepime, IV metronidazole Q 8 hours - ordered blood culture, wound culture with Gram staining and MRSA screen - surgery on board: No indications for acute intervention at this time - advanced to full liquid diet - PT evaluation requested Chronic pain - resumed home medication Percocet 5 q.6 hours as needed Chronic respiratory failure, on home O2 2 L COPD exacerbation - CXR: No abnormality detected on this study. - ipratropium and albuterol med nebs Questionable KARO on CKD stage 3 - monitor Left lower extremity proximal DVT (left common femoral vein and left greater saphenous vein) Hypercoagulable state secondary to unknown cause? History of mesenteric vein thrombosis 2021 which led to ischemic colitis, s/p hemicolectomy - lower extremity Doppler: Positive DVT in the left common femoral vein and greater saphenous vein - 80 mg Lovenox b.i.d. - consider coagulable workup in the outpatient setting Type 2 diabetes, insulin dependent - mild sliding scale insulin Heart failure with preserved ejection fraction, currently stable - monitor Major depressive disorder - resumed home med fluoxetine 40 mg p.o. daily - quetiapine 400 mg - trazodone 50 mg Hypokalemia - repleted with p.o. potassium 50 mEq Goals of care: Full code, discussed for >16 minutes on 12/04/2024 Plan discussed with patient Plan discussed with Dr. Pittman Plan discussed with: Patient, Other (RN) My Orders My Orders Orders - CRISTOPHER ZULUAGA Procedure Category Date Status Time Mechanical Soft Diet DIET 12/08/24 Transmitted Dinner Oxycodone W/ Acet PHA 12/08/24 In Process 5/325mg Tab (Percocet 14:45 Dietary Evaluation Review Comments: 1) If Pt's kidney function remians at CKD-3, advance to [facility]-Renal Specific -60 g protein 2gNa 3K, low phos diet when when medically feasible. and pt passing speech eval. 2) Diet may be updated to [facility]-60 Renal Standard 2gNa 3K low phos diet if pt is scheduled for dialysis. Expected Outcomes/Goals: controlled DM, and less uremic symptoms. gradual weight loss. Date of Service: Dec 08, 2024 Billing Provider: PUJA PITTMAN MD Common Visit Codes: [id number] INP/OBS CARE(HIGH) CRISTOPHER ZULUAGA Dec 08, 2024 16:58 PUJA PITTMAN MD Dec 13, 2024 17:27
[2024-12-09] VITALS (10 sets, daily range): BP systolic 90–138; BP diastolic 57–69; PULSE 87–121; RESP 17–20; TEMP 97.6–98.5; O2SAT 98–99
[2024-12-09 07:30] LABS: Chloride 106 mmol/L (98-107)
[2024-12-09 07:31] LABS: Anion Gap 7 (5-15)
[2024-12-09 07:41] LABS: Blood Urea Nitrogen 9 mg/dL (9-23); Calcium 8.6 mg/dL (8.7-10.4); Carbon Dioxide 20 mmol/L (20-31); Glucose 113 mg/dL (74-106); Sodium 133 mmol/L (136-145)
[2024-12-09] MEDS ORDERED: APIX5TAB PO (12:06)
[2024-12-09] MEDS ORDERED: NYS15PW TOP (12:06)
--- NOTE | 2024-12-09 14:42 | DVHDSRES ---
Discharge Summary Date of Admission Resident Creating Document: CRISTOPHER ZULUAGA RESIDENT Dec 04, 2024 at 00:47 Date of Discharge: Dec 09, 2024 Admitting Diagnosis Peristomal site skin infection Labs/Diagnostic Data: Laboratory Results Test 12/09/24 11:36 12/09/24 06:05 12/07/24 06:18 12/04/24 12:05 POC Glucose 216 mg/dl (70-106) Sodium Level 133 mmol/L (136-145) Potassium Level 4.0 mmol/L (3.5-5.1) Chloride Level 106 mmol/L (98-107) Carbon Dioxide Level 20 mmol/L (20-31) Anion Gap 7 (5-15) Blood Urea Nitrogen 9 mg/dL (9-23) Creatinine 1.12 mg/dL (0.550-1.02) Glomerular Filtration Rate Calc 56 mL/min (>90) BUN/Creatinine Ratio 8.0 (10.0-20.0) Serum Glucose 113 mg/dL (74-106) Calcium Level 8.6 mg/dL (8.7-10.4) White Blood Count 3.9 10^3/uL (4.4-10.8) Red Blood Count 3.89 10^6/uL (4.0-5.20) Hemoglobin 12.4 g/dL (12.2-16.2) Hematocrit 37.0 % (36.0-46.0) Mean Corpuscular Volume 95.0 fL (80.0-100.0) Mean Corpuscular Hemoglobin 31.9 pg (28.0-32.0) Mean Corpuscular Hemoglobin Concent 33.6 g/dL (32.0-36.0) Red Cell Distribution Width 13.2 % (11.8-14.3) Platelet Count 96 10^3/uL (140-450) Mean Platelet Volume 9.6 fL (6.9-10.8) Neutrophils (%) (Auto) 70.7 % (37.0-80.0) Lymphocytes (%) (Auto) 16.5 % (10.0-50.0) Monocytes (%) (Auto) 9.1 % (0.0-12.0) Eosinophils (%) (Auto) 3.2 % (0.0-7.0) Basophils (%) (Auto) 0.5 % (0.0-2.0) Neutrophils # (Auto) 2.7 10 ^3/uL (1.6-8.6) Lymphocytes # (Auto) 0.6 10 ^3/uL (0.4-5.4) Monocytes # (Auto) 0.4 10 ^3/uL (0-1.3) Eosinophils # (Auto) 0.1 10 ^3/uL (0-0.8) Basophils # (Auto) 0 10 ^3/uL (0-0.2) Nucleated Red Blood Cells 0.1 % Random Vancomycin Level 14.2 ug/mL (5-10) Urine Color Light-yellow (Yellow) Urine Clarity Clear (Clear) Urine pH 6.0 (5.0-9.0) Urine Specific [place] 1.023 (1.001-1.035) Urine Protein Trace (Negative) Urine Ketones Negative (Negative) Urine Blood Negative /uL (Negative) Urine Nitrite Negative (Negative) Urine Bilirubin Negative (Negative) Urine Urobilinogen Normal mg/dL (Negative) Urine Leukocyte Esterase Trace /uL (Negative) Urine RBC 2 /hpf (0 - 4) Urine WBC 2 /hpf (0 - 5) Urine Squamous Epithelial Cells Few /hpf (<5) Urine Bacteria None seen /hpf (None Seen) Urine Glucose Normal mg/dL (Normal) Urine Opiates Screen Pos (NEGATIVE) Urine Fentanyl Screen Neg (NEGATIVE) Urine Barbiturates Screen Neg (NEGATIVE) Urine Phencyclidine Screen Neg (NEGATIVE) Urine Amphetamines Screen Neg (NEGATIVE) Urine Benzodiazepines Screen Neg (NEGATIVE) Urine Cocaine Screen Neg (NEGATIVE) Urine Cannabinoids Screen Neg (NEGATIVE) Test 12/04/24 07:35 12/04/24 04:15 12/03/24 21:18 Influenza Type A Antigen Negative (Negative) Influenza Type B Antigen Negative (Negative) SARS-CoV-2 Antigen (Rapid) Negative (NEGATIVE) Erythrocyte Sedimentation Rate 2 mm/hr (0-20) Lactic Acid Level 3.0 mmol/L (0.4-2.0) Total Bilirubin 0.9 mg/dL (0.2-1.0) Aspartate Amino Transferase (AST) 50 U/L (13-40) Alanine Aminotransferase (ALT) 43 U/L (7-40) Alkaline Phosphatase 143 U/L (46-116) Total Protein 5.8 g/dL (5.7-8.2) Albumin 3.2 g/dL (3.2-4.8) Reticulocyte Count (auto) 1.21 % (0.5-1.5) Prothrombin Time 10.6 sec (9.3-11.8) Prothrombin Time INR 1.00 (0.9-1.15) Activated Partial Thromboplast Time 22.7 SEC (24.5-34.5) Lactate Dehydrogenase 243 U/L (120-246) Troponin I High Sensitivity 4 ng/L (</=34) C-Reactive Protein High Sensitivity 0.63 mg/dL (<1.0) Other Laboratory Tests 12/09/24 06:05 12/07/24 06:18 Brief Hx & Hospital Course: Patient is a 59-year-old female with past medical history of ischemic colitis s/p hemicolectomy with a colostomy bag, mesenteric thrombosis in 2021, COPD, CHF, CKD stage 3, type 2 diabetes, major depressive disorder, dyslipidemia on home oxygen 2 L, who came in due to peristomal erythema, swelling due to which she was unable to attach the ostomy bag. Patient notes that these symptoms have been ongoing since discharge from her previous hospitalization 2 weeks ago. Of note, 2 weeks ago patient was admitted to the [facility] for similar symptoms which were managed and she was discharged home with p.o. antibiotic. At baseline patient uses wheelchair and walker to ambulate. Hospital course: CT abdomen pelvis showed Masslike consolidation in the right lung base again noted, possibly rounded atelectasis. Associated trace right pleural effusion. Diffuse hepatic steatosis. Postsurgical changes in the bowel with the right lower quadrant ileostomy in the left lower quadrant colostomy. Mildly dilated loops of small bowel are nonspecific. Ventral hernia containing bowel. Small likely scarring along the old incision. No definite cellulitis or abscess. Clinical correlation and continued follow-up is recommended. Consider further evaluation with ultrasound. Patient was subsequently started on IV vancomycin, IV cefepime and IV metronidazole. Surgery was also taken on board however no indications for acute interventions were noted by the surgery team at this time. Patient was continued on a full liquid diet and PT evaluation was also continued for the patient. For her chronic pain home medication Percocet 5 mg q.6 hours as needed was continued. Patient was also continued on albuterol and ipratropium med nebs. On lower extremity Doppler patient was noted to have a positive DVT in the left common femoral vein and greater saphenous vein for which he was started on 80 mg Lovenox b.i.d.. Outpatient hypercoagulable workup was recommended to the patient patient was also continued on a mild sliding scale of insulin along with fluoxetine, quetiapine and trazodone. On the day of discharge, patient appeared well and had stable vital signs. Patient was updated on plan of care and discharge planning to which she agreed, all questions were answered and concerns were addressed. Patient was discharged home with Eliquis 5 mg twice a day and topical nystatin to use. Her hospital course was uncomplicated. General Appearance: Cooperative. Well developed. Well nourished. NAD Head Exam: Normal inspection Neck Exam: Normal inspection. Non-tender. Normal alignment Pulmonary/Respiratory: Chest non-tender. Clear bilateral breath sounds, no crackles, wheezing. Cardiovascular/Chest: Regular rate and rhythm. No murmurs. No JVD. Peripheral Pulses: 2+ Radial (R). 2+ Radial (L). 2+ Pedal (R). 2+ Pedal (L) Abdominal Exam: Normal bowel sounds. Soft. Ostomy site with a colostomy bag draining watery greenish drainage, ostomy site with mild erythema, no purulence, improving. no visible veins, Nontender. No hepatospenomegaly. No masses Ankle Exam: Negative ankle edema Lower extremities: Negative lower extremity edema. Left lower extremity greater in size than right lower extremity Neuro/Mental Status: A&O x4. Coherent. Thoughts/Psych: Normal thought pattern. Appropriate mood and affect. Good judgement and insight Skin Exam: Normal inspection. Normal color. Warm. Dry Operations or Procedures ORDERING PHYSICIAN: CRISTOPHER ZULUAGA RESIDENT PROCEDURE(s): ABPEL - CT AB PELVIS W WO CON-IV ONLY REASON: abdominal cellullitis ORDER NUMBER(s): [id number], ACCESSION NUMBER(s): [id number] Exam: CT CT AB PELVIS W WO CON-IV ONLY History: abdominal cellullitis Comparison Study: None available at time of dictation. Technique: Multidetector spiral CT of the abdomen and pelvis was performed from lung bases to pubic symphysis. Initial imaging was done without IV contrast, followed by post contrast images of the abdomen and pelvis. Intravenous contrast was administered during this examination. Portal venous imaging was obtained. Axial, coronal and sagittal multiplanar reformats were performed by the technologist on a separate workstation. CONTRAST: Type of contrast: Omni 300 Contrast injected: 100 ml Radiation Dose : CT Dose: CTDI volume is 33 mGy. Dose-length product is 1705 mGy*cm Findings: Lung Bases: Masslike consolidation right lung base with associated trace pleural effusion. Liver: Diffuse hepatic steatosis. Gallbladder and biliary Tree: Surgically absent. Spleen: Unremarkable Pancreas: The pancreas is normal in appearance without focal lesions or abnormal enhancement. Adrenal Glands: Unremarkable Kidneys: Kidneys demonstrate normal symmetric enhancement without focal lesions, calculi or hydronephrosis. Bladder: Unremarkable Bowel: The stomach is grossly normal in appearance. Postsurgical changes with a right lower quadrant ileostomy. Left colostomy is also noted. Loops of small bowel are mildly dilated. The appendix is not visualized; however, no secondary findings of acute appendicitis identified. Ascites: Absent Lymphadenopathy: No mesenteric, retroperitoneal or periportal lymphadenopathy. Abdominal wall and Mesentery: Postsurgical changes. Ventral hernia containing bowel. Soft tissue density along the old ventral incision could be scar tissue. Vasculature: Calcified atherosclerotic disease. Pelvic Organs: The uterus is surgically absent. Musculoskeletal: Grade 1 anterolisthesis of L4 on L5. IMPRESSION: 1. Masslike consolidation in the right lung base again noted, possibly rounded atelectasis. Associated trace right pleural effusion. Diffuse hepatic steatosis. Postsurgical changes in the bowel with a right lower quadrant ileostomy and a left lower quadrant colostomy. Mildly dilated loops of small bowel are nonspecific. Ventral hernia containing bowel. Some likely scarring along the old incision. No definite cellulitis or abscess. Clinical correlation and continued follow-up is recommended. Consider further evaluation with ultrasound. ORIGINAL REPORT Bilateral lower extremity venous duplex Clinical History: rule out dvt Comparison: None Findings: Duplex Doppler evaluation of the deep venous systems of both lower extremities from the common femoral veins to the popliteal veins including color Doppler and spectral/pulsed waveform analysis was performed. RIGHT SIDE: The common femoral vein demonstrates appropriate compressibility and waveform variability. There is compressibility/patency of the great saphenous vein at the proximal thigh. The femoral vein demonstrates appropriate compressibility and waveform variability. The deep femoral vein demonstrates appropriate compressibility and waveform variability. The popliteal vein demonstrates appropriate compressibility and waveform variability. There is normal compressibility at the tibioperoneal trunk. Posterior tibial vein not visualized. LEFT SIDE: The common femoral vein demonstrates noncompressible thrombus. There is noncompressible thrombus in the greater saphenous vein. The femoral vein demonstrates appropriate compressibility and waveform variability. The deep femoral vein demonstrates appropriate compressibility and waveform variability. The popliteal vein demonstrates appropriate compressibility and waveform variability. There is normal compressibility at the tibioperoneal trunk. Posterior tibial vein not visualized. Impression: 1. Positive DVT in the left common femoral vein and greater saphenous vein. 2. No deep venous thrombosis in the right lower extremity. Condition at Discharge: Good Final Diagnosis/Problems List Peristomal skin infection: Fungal versus erysipelas Sepsis due to above S/p ostomy Chronic back pain Chronic respiratory failure, on home O2 2 L COPD exacerbation Questionable KARO on CKD stage 3 Left lower extremity proximal DVT (left common femoral vein and left greater saphenous vein) Hypercoagulable state secondary to unknown cause? History of mesenteric vein thrombosis 2021 which led to ischemic colitis, s/p hemicolectomy Type 2 diabetes, insulin dependent Heart failure with preserved ejection fraction, currently stable Major depressive disorder Hypokalemia Discharge Disposition: Home Discharge Instruct/Medications Diet: Consistent carbohydrate Activity: No Restrictions, As Tolerated Follow Up/Referral: Please follow up with PCP in 1-2 weeks Please follow up in discharge clinic Medications: Eliquis 5 mg twice a day for 3 months Topical nystatin ointment to the affected peristomal site 3 times a day Discharge Statement: "Patient was advised to return to the ER or call 911 if any headaches, dizziness, shortness of breath, chest pain, abdominal pain, bleeding, fevers, or worsening of medical condition. Patient was counseled about treatment plan, medications, possible side effects, patientverbalized understanding. All questions were answered to the best of my ability. This discharge took greater then 30 minutes in planning, reviewing documentation, counseling the patient, and discussing with other team members." ASSESSMENT ASSESSMENT Assessment Peristomal skin infection: Fungal versus erysipelas Sepsis due to above S/p ostomy Chronic back pain Chronic respiratory failure, on home O2 2 L COPD exacerbation Questionable KARO on CKD stage 3 Left lower extremity proximal DVT (left common femoral vein and left greater saphenous vein) Hypercoagulable state secondary to unknown cause? History of mesenteric vein thrombosis 2021 which led to ischemic colitis, s/p hemicolectomy Type 2 diabetes, insulin dependent Heart failure with preserved ejection fraction, currently stable Major depressive disorder Hypokalemia Date of Service: Dec 09, 2024 Billing Provider: PUJA PITTMAN MD Common Visit Codes: 77346-TUN/OBS DISCH DAY >30min CRISTOPHER ZULUAGA RESIDENT Dec 09, 2024 14:42 PUJA PITTMAN MD Dec 13, 2024 17:28
[2024-12-09] MEDS: ONDANSETRON ODT 4 MG TAB PO ONE (16:07)
[2024-12-09] MEDS ORDERED: DEXTROSE (50%) 50ML SYRG IV PRN (19:45)
[2024-12-09] MEDS: ACCU-CHEK COMFORT CURVE STRIP VI SCH ×2 (22:11)
[2024-12-09] MEDS: InsuLIN REG 1unit/0.01ml Soln (100units/ml) SC SCH (22:13)
[2024-12-09] MEDS: SODIUM CHLORIDE 0.9% 500 ML IV ONE (23:17)
[2024-12-10 05:00] VITALS: BP_SYST 87; BP_SYST 97; BP_DIAS 60; BP_DIAS 64; PULSE 84; RESP 20; TEMP 98; O2SAT 91; O2SAT 98
[2024-12-10 08:00] VITALS: PULSE 97; RESP 18; O2SAT 96
[2024-12-10 08:57] VITALS: BP 96/80; PULSE 97; RESP 18; TEMP 98.2; O2SAT 96
[2024-12-10] MEDS: ceFAZolin 2 GM/D5W50ml 50 ML IV ONE (09:03)
[2024-12-10] MEDS ORDERED: ceFAZolin 2 GM/D5W50ml 50 ML IV SCH (14:00)
--- NOTE | 2024-12-10 21:51 | DVHPNRES ---
Progress Note Date Seen: Dec 11, 2024 Resident Creating Document: GEOVANNY RAYMOND RESIDENT Medical Necessity Reason Pt with a Central, PICC or Fol: No Subjective Review of Systems Patient seen and examined at bedside Patient mentioned improvement in his symptoms Patient was planned to be discharged yesterday but discharge was held due to persistent nausea. Objective vital signs Vital Sign Date Time Temp Pulse Resp B/P (MAP) Pulse Ox O2 Delivery O2 Flow Rate FiO2 12/10/24 08:57 98.2 97 18 96/80 (85) 96 98.2 12/10/24 08:00 Nasal Cannula* 2 28 Total Intake and Output 12/09/24 12/09/24 12/10/24 15:00 23:00 07:00 Intake Total 1408 ml 750 ml Output Total 300 ml 3070 ml Balance 1108 ml -2320 ml Examination General Appearance: Cooperative. Well developed. Well nourished. NAD Head Exam: Normal inspection Neck Exam: Normal inspection. Non-tender. Normal alignment Pulmonary/Respiratory: Chest non-tender. Clear bilateral breath sounds, no crackles, wheezing. Cardiovascular/Chest: Regular rate and rhythm. No murmurs. No JVD. Peripheral Pulses: 2+ Radial (R). 2+ Radial (L). 2+ Pedal (R). 2+ Pedal (L) Abdominal Exam: Normal bowel sounds. Soft. Ostomy site with a colostomy bag draining watery greenish drainage, swollen ostomy site with erythema, no purulence, improving. no visible veins, Nontender. No hepatospenomegaly. No masses Ankle Exam: Negative ankle edema Lower extremities: Negative lower extremity edema Neuro/Mental Status: A&O x4. Coherent. Thoughts/Psych: Normal thought pattern. Appropriate mood and affect. Good judgement and insight Skin Exam: Normal inspection. Normal color. Warm. Dry laboratory and microbiology Laboratory Tests 12/09/24 06:05 12/07/24 06:18 Test 12/09/24 06:05 Range/Units Serum Glucose 113 H 74-106 mg/dL Microbiology Date/Time Source Procedure Growth Status 12/04/24 14:00 Blood Blood Culture - Final NO GROWTH AFTER 5 DAYS OF INCUBATION. Complete 12/04/24 13:00 Abdomen Gram Stain - Final Complete 12/04/24 13:00 Wound Culture - Final Presumptive Deedee albicans Complete Labs and/or images reviewed: Labs reviewed by me, Image(s) reviewed by me Problem List/Assessment/Plan Problem List/Assessment/Plan Patient was planned to be discharged yesterday but discharge was held due to persistent nausea. Assessment/plan #Peristomal skin infection: Fungal versus erysipelas #Sepsis due to above #S/p ostomy - CT abdomen pelvis: Masslike consolidation in the right lung base again noted, possibly rounded atelectasis. Associated trace right pleural effusion. Diffuse hepatic steatosis. Postsurgical changes in the bowel with the right lower quadrant ileostomy in the left lower quadrant colostomy. Mildly dilated loops of small bowel are nonspecific. Ventral hernia containing bowel. Small likely scarring along the old incision. No definite cellulitis or abscess. Clinical correlation and continued follow-up is recommended. Consider further evaluation with ultrasound. - IV vancomycin per pharmacy - IV cefepime, IV metronidazole Q 8 hours - ordered blood culture, wound culture with Gram staining and MRSA screen - surgery on board: No indications for acute intervention at this time - advanced to full liquid diet - PT evaluation requested Chronic pain - resumed home medication Percocet 5 q.6 hours as needed Chronic respiratory failure, on home O2 2 L COPD exacerbation - CXR: No abnormality detected on this study. - ipratropium and albuterol med nebs Questionable KARO on CKD stage 3 - monitor Left lower extremity proximal DVT (left common femoral vein and left greater saphenous vein) Hypercoagulable state secondary to unknown cause? History of mesenteric vein thrombosis 2021 which led to ischemic colitis, s/p hemicolectomy - lower extremity Doppler: Positive DVT in the left common femoral vein and greater saphenous vein - 80 mg Lovenox b.i.d. - consider coagulable workup in the outpatient setting Type 2 diabetes, insulin dependent - mild sliding scale insulin Heart failure with preserved ejection fraction, currently stable - monitor Major depressive disorder - resumed home med fluoxetine 40 mg p.o. daily - quetiapine 400 mg - trazodone 50 mg Hypokalemia - repleted with p.o. potassium 50 mEq Case discussion with dr brain Grubbs discussed with: Patient, Other Dietary Evaluation Review Comments: 1) If Pt's kidney function remians at CKD-3, advance to [facility]-Renal Specific -60 g protein 2gNa 3K, low phos diet when when medically feasible. and pt passing speech eval. 2) Diet may be updated to [facility]-60 Renal Standard 2gNa 3K low phos diet if pt is scheduled for dialysis. Expected Outcomes/Goals: controlled DM, and less uremic symptoms. gradual weight loss. Date of Service: Dec 11, 2024 Billing Provider: PUJA PITTMAN MD Common Visit Codes: [id number] INP/OBS CARE(HIGH) GEOVANNY RAYMOND RESIDENT Dec 10, 2024 21:50 PUJA PITTMAN MD Dec 13, 2024 17:28
[2024-12-11] MEDS ORDERED: CEPH500C PO (01:33)
[2024-12-11] MEDS ORDERED: FLUC100T34 PO (01:33)
[2024-12-13] MEDS ORDERED: ATOR40TA52 PO (01:36)
== END 2024-12-10 11:40 | disposition home or self-care (01) | DRG 872 ==
LOC: EDBD 20:23 → ER 20:23 → EDBD 12-04 00:47 → OVERFLOW 12-04 00:47 → WEST WING 12-05 15:40
PROVIDERS: ADMIT Student in an Organized Health Care Education/Training Program; ATTEND Student in an Organized Health Care Education/Training Program
DX: A41.9 Sepsis, unspecified organism (principal); K94.02 Colostomy infection; L03.311 Cellulitis of abdominal wall; J44.1 Chronic obstructive pulmonary disease with (acute) exacerbation; I50.32 Chronic diastolic (congestive) heart failure; N17.9 Acute kidney failure, unspecified; E87.20 Acidosis, unspecified; J96.10 Chronic respiratory failure, unspecified whether with hypoxia or hypercapnia; I13.0 Hypertensive heart and chronic kidney disease with heart failure and stage 1 through stage 4 chronic kidney disease, or unspecified chronic kidney disease; J90 Pleural effusion, not elsewhere classified; D68.69 Other thrombophilia; I82.412 Acute embolism and thrombosis of left femoral vein; E11.22 Type 2 diabetes mellitus with diabetic chronic kidney disease; K94.00 Colostomy complication, unspecified; N18.30 Chronic kidney disease, stage 3 unspecified; J44.9 Chronic obstructive pulmonary disease, unspecified; E78.5 Hyperlipidemia, unspecified; F32.9 Major depressive disorder, single episode, unspecified; K76.0 Fatty (change of) liver, not elsewhere classified; F17.210 Nicotine dependence, cigarettes, uncomplicated; E87.6 Hypokalemia; G89.29 Other chronic pain; A46 Erysipelas; Z90.49 Acquired absence of other specified parts of digestive tract; Z86.73 Personal history of transient ischemic attack (TIA), and cerebral infarction without residual deficits; Z90.710 Acquired absence of both cervix and uterus; Z79.4 Long term (current) use of insulin; Z83.3 Family history of diabetes mellitus; Z82.49 Family history of ischemic heart disease and other diseases of the circulatory system
CPT/HCPCS: 36415; 71045; 74178; 80048; 80053; 80202; 80307; 81001; 82962; 83605; 83615; 84484; 85025; 85045; 85610; 85652; 85730; 86141; 87040; 87077; 87081; 87205; 87426; 87804; 93970; 97163; G0378; J0692; J1450; J1815; J2405; J2543; J3490; Q0162